=== PATIENT | male | born 1950 | race Caucasian/White ===

== ENCOUNTER 2021-12-31 10:30 | Outpatient (RCR) | payer OTHER, SELFPAY | END 2021-12-31 23:59 | LOC: PR 10:30 | DX: J44.9 Chronic obstructive pulmonary disease, unspecified (principal) | CPT/HCPCS: 97150; 94626 ==

== ENCOUNTER 2022-01-10 10:30 | Outpatient (RCR) | payer OTHER, SELFPAY ==
--- NOTE | 2022-01-31 08:41 | PR.ITP_ITS ---
Exercise - 60-Day Assessment - Visit Date of Eval: 01/31/22 Session Number:: 15 - pt has not attended rehab since 01/10/22 - Physician Prescribed Exercise Modalities: Biodyne, NuStep, Lateral Qa Intern Intensity: 60-80% maximum heart rate reserve from GXT Aerobic Exercise [30-60 min 3-7x/week]:: Progressing Raz-12 Current METSs: 3.5 Maximum Exercise HR:: 95 Resting Blood Pressure: 138/68 Maximum Exercise Blood Pressure: 138/68 - 94 Minimum SpO2 with exercise: 94 EKG Type: SR to ST Current Minutes of Exercise: 35 - Home Exercise Home Exercise:: Yes Mode: Other Nutrition/Wt Mgmt - 60-Day - Visit Date of Eval: 01/31/22 Session Number:: 15 - Weight Management Height: 5 ft 10 in Weight:: 126.325 kg BMI: 39.9 Weight Goals Progress:: Not progressing Psychosocial - 60-Day - Visit Date of Eval: 01/31/22 Session Number:: 15 - Problems/Goals History of Emotional Disorders: Anxious, Depression - - Referral to Behavioral Health PS - Interventions: Yes Referral to Behavioral Health if PHQ-9 score >9: Oxygen & Oxygen Titration 60D - Visit Date of Eval: 01/31/22 - 15 Core Components - Initial Core Components - 30 DAYS Core Components - 60 DAYS - Visit Date of Eval: 01/31/22 Session Number:: 15 - Hypertension Hypertension Diagnosis:: Hypertension ICD-10 I10 Resting Blood Pressure:: 138/68 [place] [employer] Hypertension Guidelines: [place] [employer] Hypertension Guidelines. Normal BP Less than 120/80. Elevated BP 120/80. Hypertension Stage 1: BP 130-139/80-89. Hypertesnion Stage 2: BP 140 or higher/90 or higher. Hypertension Crisis: BP higher than 180/120 Peak Exercise Blood Pressure:: 138/68 Interventions/plan: Instruct on optimal blood pressure, hypertension & medications, Instruct on effects of sodium, alcohol, stress, exercise &hypertension, Other additional plan/interventions 60 day Reassessments:: Progressing - Tobacco - 60-Day Tobacco Program Goals: Complete smoking cessation. Attend education classes. Improve Knowledge Test score Do you use smokeless tobacco?: No Smoking Cessation Referral:: No Individual Education/Counseling:: No Education Schedule Given:: Yes - Medication Medication reassessment: Yes Pt demonstrates correct technique timing for MDI, Yes Pt demonstrates correct technique timing for DPI, Yes Pt demonstrates correct technique timing for NEB, Yes Pt demonstrates correct technique timing for spacer - Diabetes Diabetes:: Yes Insulin dependent injection/pump?: Yes Non-Insulin Dependent?: Yes Do you monitor your blood sugar at home?: Yes Referral to Diabetic Clinic:: Yes 60-day Reassessments:: Progressing - Heart Failure Documenting weight sandra: Yes Core Components - 90 DAYS Core Components - Final Knowledge Questionaire (BCKQ) - Information Information: [employer] COPD Knowledge Questionnaire (BCKQ) This questionnaire is designed to find out what you know about your lung problem. It should be completed without help form anyone else. This usually takes between 10 and 20 minutes. Your answers will help us to find out what information you need to help you to understand and manage your lung condition. [employer] [place] which you think is the correct answer. Self-Efficacy Nutrition Survey
[2022-01-31 08:54] VITALS: BP 138/68; O2SAT 94; BMI 39.9
== END 2022-01-31 23:59 ==
LOC: PR 10:30
DX: R06.00 Dyspnea, unspecified (principal)
CPT/HCPCS: 97150; 94626

== ENCOUNTER 2022-02-02 09:09 | Outpatient (RCR) | payer OTHER, SELFPAY ==
[2022-02-01 00:14] VITALS: BP 138/68
== END 2022-03-02 23:59 ==
LOC: PR 09:09
DX: J44.9 Chronic obstructive pulmonary disease, unspecified (principal)
CPT/HCPCS: 97150; 94626

== ENCOUNTER 2022-07-14 16:00 | Emergency (ER) | payer OTHER, SELFPAY ==
[2022-07-14 16:01] VITALS: BP 119/62; PULSE 84; RESP 18; TEMP 36; O2SAT 94
--- NOTE | 2022-07-14 16:20 | VDLE_ITS ---
Reason For Study: Pain Procedure LEFT This is a venous duplex using B-mode, color GSV is normal. flow and spectral Doppler. CFV is compressible, spontaneous, phasic, Exam performed portable in ED. competent, and demonstrates normal A preliminary report was called and/or faxed augmentation. to ED. FV is compressible, spontaneous, phasic, competent and demonstrates normal augmentation. POP V is compressible, spontaneous, phasic, competent and demonstrates normal augmentation. T/P Trunk is compressible. PTV is compressible. LT PerV is compressible. VL/Venous Duplex US, Unilateral Interpretation Summary There is no evidence of left lower extremity deep vein thrombosis. Left great s aphenous vein appears patent and compressible segmentally. Ordering Physician: Calin Patel Referring Physician: [facility] Performed By: Yvonne Butler RVT
--- NOTE | 2022-07-14 16:38 | ED.VIS.LOWEX ---
HPI History of Present Illness Chief Complaint: Lower Extremity Injury Informant: patient Narrative Narrative: Patient was referred by [facility] for ultrasound for possible DVT of his left lower extremity. Patient states that about 4 days ago he was carrying some sheets of plywood into his garage. He got sudden pain in his left calf. All the pain is below the knee. He has not had swelling. If he is just sitting quietly it does not hurt but it hurts when he tries to put weight mostly on his toes. He still can move his toes down into equinus but it hurts when he does so. He has never had a DVT or PE. He does take aspirin. No chest pain or shortness of breath. No fevers or chills. [facility] Medical History Aortic valve stenosis Atherosclerotic heart disease of [place] coronary artery without angina pectoris Hyperlipidemia, unspecified Obesity (BMI 35.0-39.9 without comorbidity) VICKI on CPAP Type 2 diabetes mellitus without complications Home Medications albuterol sulfate 90 mcg/actuation aerosol inhaler 2 puff inhalation Q6H PRN Dyspnea 12/01/21 [History Last Taken Unknown] budesonide 160 mcg-glycopyr 9 mcg-formot 4.8 mcg/actuation HFA inhaler (Breztri Aerosphere) 2 inh inhalation BID 12/01/21 [History Last Taken Unknown] fluticasone propionate 50 mcg/actuation nasal spray,suspension 1 spray intranasal Q12H 12/01/21 [History Last Taken Unknown] loratadine 10 mg tablet 10 mg PO DAILY 12/01/21 [History Last Taken Unknown] Allergy/AdvReac Type Severity Reaction Status Date / Time Seasonal Allergies: Uncoded Allergy Mild Chronic Verified 07/14/22 16:01 Rhinitis/Sneezing, Coughing Social History Smoking Status: Former smoker ROS ROS ED Constitutional Constitutional ED: Denies chills or fever(s) ENT ENT ED: Denies rhinorrhea Cardiovascular Cardiovascular: Denies chest pain, palpitations or racing heartbeat Respiratory/Chest Respiratory/Chest: Denies cough or dyspnea Gastrointestinal Gastrointestinal: Denies nausea or vomiting Musculoskeletal Musculoskeletal: Reports myalgias and other Details: See history of present illness Integumentary Denies abscess, Abrasions or rash Neurologic Neurologic: Denies paresthesias or weakness Hematologic/Lymphatic Hematologic/Lymphatic: Denies easy bleeding or easy bruising Allergic/Immunologic Allergic/Immunologic ED: Denies urticaria EXAM Physical Exam Narrative Exam Narrative: Patient awake alert no acute distress sitting comfortably in bed. HEENT shows no rash. Mucous membranes are moist. Heart is regular. I hear no murmur. Lungs are clear bilaterally with normal saturations Abdomen is obese but otherwise benign Extremities do not show asymmetry. The right and left are the same size. There is no distended veins. He does have some tenderness of the left calf though. His Achilles is palpable and intact by Dickey test. He compressed down with his toes easily but it does cause some discomfort. No bony tenderness. No deformities. Extensor mechanism of the knee is intact and there is no effusion. There is no erythema warmth or skin changes of infection Skin shows no sign of infection. Const Vital Signs: 07/14/22 16:01 Temperature 96.8 F L Temperature Source Temporal Pulse Rate 84 Respiratory Rate 18 Blood Pressure 119/62 Blood Pressure Mean 81 Pulse Ox 94 Oxygen Delivery Method Room Air MDM MDM MDM Narrative Medical decision making narrative: We are trying to obtain reading the patient's ultrasound. It appears as though this has been read. But neither myself, charge nurse, or radiology can access the actual reading. We are making phone calls to the original radiologist and were trying to get the results and reading of this. We have been making calls for some time. We do have a verbal report that this image is negative. This is most consistent with this history. We will access evidently the formal read in the morning. There is an issue with the day shift and shift production supervisor transition and getting the study actually visualized. But they have been able to call and verify that it is negative. My suspicion is that this patient may have had a plantaris tendon rupture. Discharge Plan Triage Chief Complaint: Lower Extremity Injury ED Provider: Calin Patel Dx/Rx/DC Orders Clinical Impression: Pain of left calf, Injury of left plantaris muscle or tendon Instructions: ED Muscle Strain, Extremity Prescriptions: No Action albuterol sulfate 90 mcg/actuation Hfa Aerosol Inhaler 2 puff INHALATION Q6H PRN (Reason: Dyspnea) fluticasone propionate [Flonase] 50 mcg/actuation [place],Suspension 1 spray INTRANASAL Q12H Rx Instructions: administer into each nostril loratadine 10 mg Tablet 10 mg PO DAILY Ammyangus Aerosphere 160-9-4.8 mcg/actuation Hfa Aerosol Inhaler 2 inh INHALATION BID [facility] - 3-5 Days if not improving Disposition Disposition: Home, Self Care
[2022-07-14 17:00] VITALS: BMI 38.9
== END 2022-07-14 19:57 | disposition home or self-care (01) ==
PROVIDERS: Emergency Provider Emergency Medicine; Visit Provider Emergency Medicine
DX: M79.662 Pain in left lower leg (principal); E11.9 Type 2 diabetes mellitus without complications; I25.10 Atherosclerotic heart disease of native coronary artery without angina pectoris; E78.5 Hyperlipidemia, unspecified; Z87.891 Personal history of nicotine dependence; G47.33 Obstructive sleep apnea (adult) (pediatric); Z99.89 Dependence on other enabling machines and devices
CPT/HCPCS: 93971; 99282

== ENCOUNTER 2022-10-15 13:54 | Observation (INO) | payer OTHER, SELFPAY ==
[2022-10-15 13:56] VITALS: BP 138/65; PULSE 82; RESP 24; TEMP 36.3; O2SAT 95; BMI 38.3
--- NOTE | 2022-10-15 14:20 | RAD_ITS ---
EXAM: XR CHEST, 1 VIEW CLINICAL INDICATION: Chest pain. TECHNIQUE: Frontal view of the chest. COMPARISON: No relevant prior studies available. FINDINGS: LUNGS AND PLEURAL SPACES: Mild pulmonary hypoinflation. No pneumothorax. No effusion. No suspicious infiltrates. HEART: Unremarkable. No cardiomegaly. MEDIASTINUM: Central airways and mediastinal contour are unremarkable. BONES/JOINTS: Intact sternal wires. SOFT TISSUES: Unremarkable. RAD/Chest 1 View (Portable) IMPRESSION: No acute findings in the chest. Electronically Signed: Mandeep Gonzalez MD at 14:53 EDT ,
[2022-10-15 14:22] VITALS: O2SAT 96
--- NOTE | 2022-10-15 14:26 | EDS_ITS ---
HPI History of Present Illness Chief Complaint: Chest Pain Informant: patient Onset/Context/Timing Onset: Today and Hours Activity at onset: gradual Timing: Continuous Quality: Positive for Aching, Heaviness and Pressure Location: Left Parasternal Current Severity: Mild Maximum Severity: Moderate Worsened By: Nothing Relieved By: Nothing Associated Symptoms: Positive for Dyspnea and Lightheadedness; Negative for Nausea, Vomiting, Diaphoresis, Cough, Fever, Acid Reflux or Palpitations Narrative Narrative: 70-year-old male history of aortic stenosis with a mechanical aortic valve., Also history of diabetes. [facility]. He had his aortic valve placed he thinks 2 years ago. He has not had any recent cardiac catheterizations. He has been having some lightheadedness and left chest discomfort. Said it began around 11 AM today. Squad gave him aspirin and nitro which decreased his pain. This occurred when he was seated and not exerting himself. Prior Similar Symptoms: Yes Recent Illness/Hospitalization: No CVD Risk Factors: Positive for Hypertension and Diabetes; Negative for Smoking PE Risk Factors: Negative for Recent Travel/Surgery, Recent Immobilization, Prior DVT or PE, Cancer or OCP + Smoking + >/=35 TAD Risk Factors: Negative for Marfan's Syndrome [facility] Medical History Aortic valve stenosis Atherosclerotic heart disease of [place] coronary artery without angina pectoris Hyperlipidemia, unspecified Obesity (BMI 35.0-39.9 without comorbidity) VICKI on CPAP Type 2 diabetes mellitus without complications Home Medications albuterol sulfate 90 mcg/actuation aerosol inhaler 2 puff inhalation Q6H PRN Dyspnea 12/01/21 [History Last Taken Unknown] budesonide 160 mcg-glycopyr 9 mcg-formot 4.8 mcg/actuation HFA inhaler (Breztri Aerosphere) 2 inh inhalation BID 12/01/21 [History Last Taken Unknown] fluticasone propionate 50 mcg/actuation nasal spray,suspension 1 spray intranasal Q12H 12/01/21 [History Last Taken Unknown] loratadine 10 mg tablet 10 mg PO DAILY 12/01/21 [History Last Taken Unknown] Allergy/AdvReac Type Severity Reaction Status Date / Time No Known Allergies Allergy Verified 10/15/22 13:55 Surgical History History of arthroplasty of right knee Mechanical heart valve present Social History Smoking Status: Former smoker ROS ROS ED ROS Narrative Left-sided chest discomfort. Review of Systems ROS Unobtainable: Denies due to encephalopathy Constitutional Constitutional ED: Denies chills or fever(s) Eyes Eyes: Reports none ENT ENT ED: Denies ear pain Cardiovascular Cardiovascular: Reports as per HPI and chest pain; Denies palpitations or racing heartbeat Respiratory/Chest Respiratory/Chest: Reports dyspnea; Denies cough Gastrointestinal Gastrointestinal: Denies abdominal pain Genitourinary Genitourinary ED: Denies dysuria Musculoskeletal Musculoskeletal: Denies arthralgias Integumentary Denies abscess Neurologic Neurologic: Denies headache(s) Psychiatric Psychiatric: Denies anxiety Endocrine Endocrinology: Denies cold intolerance Hematologic/Lymphatic Hematologic/Lymphatic: Denies easy bleeding or easy bruising Allergic/Immunologic Allergic/Immunologic ED: Denies mouth swelling or tongue swelling EXAM Physical Exam Narrative Exam Narrative: 75-year-old male no acute distress. Vital signs stable afebrile. Pulse ox 95% on room air no hypoxia. H EENT exam unremarkable. Neck nontender no JVD. Lungs clear to auscultation bilaterally. Heart regular rate and rhythm. 4/6 systolic ejection murmur. Known aortic valve. Chest wall nontender. No ecchymosis or bruising. No redness or warmth. Abdomen soft nontender. Moving all 4 extremities. Calves are nontender without edema or cords. Equal symmetrical radial pulses. Normal umbrella tipper hand strength. He is awake and alert. Answering questions and following commands. Const Vital Signs: 10/15/22 13:56 10/15/22 13:59 10/15/22 14:22 Temperature 97.3 F L Temperature Source Temporal Pulse Rate 82 Respiratory Rate 24 H Respiratory Effort Short of Breath Blood Pressure 138/65 H Blood Pressure Mean 89 Pulse Ox 95 96 Oxygen Delivery Method Room Air Room Air 10/15/22 15:03 Temperature Temperature Source Pulse Rate 71 Respiratory Rate 19 H Respiratory Effort Blood Pressure 110/48 L Blood Pressure Mean 68 Pulse Ox 96 Oxygen Delivery Method Room Air Positive well nourished, well developed and obese; Negative for cachectic, contractures or unkempt General Appearance ED: well developed and NAD; Negative for unkempt, cachectic, contractures or pallor Nutritional Appearance: obese; Negative for cachectic HEENT Reports moist mucous membranes normocephalic and atraumatic; Negative for trauma or tenderness Eyes PERRL and EOMs intact bilaterally General Eye ED: Negative for pale conjunctiva or scleral icterus Neck no lymphadenopathy, supple and no JVD General: Negative for tenderness Chest Wall inspection of chest normal and palpation of chest normal Resp normal respiratory effort and clear to auscultation bilaterally Effort and Inspection: Negative for respiratory distress Auscultation: Negative for rales, rhonchi or wheezes Cardio regular rate, regular rhythm, S1 normal heart sound and S2 normal heart sound; Negative for no murmurs Rate: other Other Details: 4/6 systolic ejection murmur. Peripheral Pulses: pulses 2+ throughout GI normal to inspection, nondistended, normoactive bowel sounds, soft to palpation, non-tender, non-distended and no masses Auscultation: Negative for hyperactive bowel sounds Palpation: Negative for splenomegaly Back/Spine no CVA tenderness and no thoracic nor lumbar tenderness General Back: Negative for CVA tenderness Cervical Spine: Negative for cervical spine tenderness Extremity normal to inspection General Extremety ED: Negative for edema, pulses abnormal or tenderness General Extremity: Negative for edema or pulses abnormal Neuro oriented x3 and CN's II-XII intact bilaterally Sensorium / Orientation: awake, alert, oriented to person, oriented to place and oriented to time; Negative for confused, lethargic or stuporous Motor Exam: strength 5/5 throughout Psych mental status grossly normal Appearance: Negative for unkempt Attitude: No agitated Mood & Affect: Negative for depressed, anxious or tearful Skin no rashes or lesions noted and no wounds General Skin Exam: Negative for jaundice or pallor Rashes: No rashes noted Trauma: Negative for abrasion, laceration or puncture Heart Score History: Moderately Suspicious ECG: Normal Age: >/= 65 years Risk Factors: 1 or 2 Risk Factors Troponin: </= Normal Limit Score: 4 MDM MDM MDM Narrative Medical decision making narrative: 72-year-old male with a known aortic mechanical valve. He is not sure if he is on blood thinners or not. He does take an aspirin a day. Had nonexertional left-sided chest pain today is not reproducible. Undergo cardiac work-up. Most likely will need to be admitted for further testing. Repeat exam patient is doing well at 3:35 PM. I will speak to the hospitalist about admission for chest pain of uncertain etiology. Patient is comfortable with the plan. History & Record Review Discussion w/independent historian: Patient Additional record(s) reviewed:: Prior inpatient record, Prior outpatient record, Prior ED visit and Prior labs Lab Data Attestation: I reviewed the patient's lab results. Lab results narrative: CBC shows a white count 11.0. H&H 13.8 and 43. Platelets 167. Electrolytes show a gap of 4. Normal BUN of 17 and creatinine of 1. Glucose 140. Troponin is normal at 7. Chest x-ray shows chronic changes. Prior sternotomy. Labs: Laboratory Results - last 24 hr 10/15/22 13:45 WBC 11.0 RBC 4.79 Hgb 13.8 Hct 43.2 MCV 90.2 MCH 28.8 MCHC 31.9 L RDW Std Deviation 43.5 RDW Coeff of Asad 13.2 Plt Count 167 MPV 11.2 Immature Gran % (Auto) 0.500 Neut % (Auto) 65.6 Lymph % (Auto) 20.7 [place] % (Auto) 9.0 Eos % (Auto) 3.5 Baso % (Auto) 0.7 Absolute Neuts (auto) 7.2 Absolute Lymphs (auto) 2.28 Nucleated RBC % 0 Sodium 141 Potassium 4.2 Chloride 107 Carbon Dioxide 30.0 Anion Gap 4 L BUN 17 Creatinine 1.02 Estim Creat Clear Calc 69.72 Est GFR (MDRD) Af Amer 92 Est GFR (MDRD) Non-Af 76 BUN/Creatinine Ratio 16.7 Glucose 140 H Calcium 9.1 Troponin I High Sens 7 Radiography Chest X-Ray - ED: 1 View, Read by ED Physician, Read by Radiologist, Heart, Lungs, Mediastinum, Bony Structures, No Acute Disease and Chronic Changes Diagnostic Testing: Clinical Impression(s) from Imaging Studies Chest X-Ray 10/15/22 14:20 IMPRESSION: No acute findings in the chest. Electronically Signed: Mandeep Gonzalez MD at 14:53 EDT , Chest x-ray, portable, single view shows no acute abnormality. Prior sternotomy. Chronic changes. Interpreted by myself and the radiologist and we agree. Rhythm Strip Rhythm Strip: Sinus Rhythm Rate: 86 Ectopy: PAC(s) EKG Initial EKG: Attestation: I personally reviewed and interpreted this EKG as follows: Interpretation: Sinus Rhythm and No Acute Injury Pattern Comments: Sinus rhythm with PACs. No acute signs of AK or ischemia. Discharge Plan Triage Chief Complaint: Chest Pain ED Provider: Jann Jiang Dx/Rx/DC Orders Clinical Impression: History of prosthetic aortic valve, History of aortic valve stenosis, Chest pain Prescriptions: No Action albuterol sulfate 90 mcg/actuation Hfa Aerosol Inhaler 2 puff INHALATION Q6H PRN (Reason: Dyspnea) fluticasone propionate [Flonase] 50 mcg/actuation [place],Suspension 1 spray INTRANASAL Q12H Rx Instructions: administer into each nostril loratadine 10 mg Tablet 10 mg PO DAILY Breztri Aerosphere 160-9-4.8 mcg/actuation Hfa Aerosol Inhaler 2 inh INHALATION BID [facility]: [facility] [Primary Care Provider] - Disposition Disposition: Acute Care Hospital [facility]
[2022-10-15 14:29] LABS: Absolute Lymphocyte Count 2.28 X10^3/uL (0.83-4.51); Absolute Neutrophil Count 7.2 X10^3/uL (2.0-7.7); Basophil# 0.08 X10^3/uL; Basophil% 0.7 % (0-1); Eosinophil# 0.39 X10^3/uL; Eosinophils% 3.5 % (0-5); Hematocrit 43.2 % (40-54); Hemoglobin 13.8 g/dL (13.0-16.5); Lymphocyte # 2.28 X10^3/ul (0.83-4.51); Lymphocyte % 20.7 % (19-41); Mean Corp Hgb Conc 31.9 g/dL (32-36); Mean Corpuscular Hgb 28.8 pg (27.0-32.0); Mean Corpuscular Volume 90.2 fL (80-94); Mean Platelet Vol. 11.2 fl (6.2-12.0); Monocyte# 0.99 X10^3/uL; NRBC Flagged by Analyzer 0 % (0-5); Neutrophil # 7.23 X10^3/uL (2.7-7.7); Neutrophil % 65.6 % (47-70); Platelet Count 167 K/mm3 (150-450); RBC Distribution Width CV 13.2 % (11.6-14.6); RBC Distribution Width SD 43.5 fl (35.1-43.9); Red Blood Count 4.79 M/mm3 (4.6-6.2)
[2022-10-15 14:46] LABS: Anion Gap 4 (5-15); BUN 17 mg/dL (7-18); BUN/Creat Ratio 16.7 RATIO (10-20); Calcium,Total 9.1 mg/dL (8.5-10.1); Chloride 107 mmol/L (98-107); Creatinine, Serum 1.02 mg/dL (0.70-1.30); EST Glomerular Filtration Rate 76 mL/min (>60); Est Glom Filt Rate - Afr Amer 92 mL/min (>60); Estimated Creatinine Clearance 69.72 ml/min; Glucose 140 mg/dL (74-106); Potassium 4.2 mmol/L (3.5-5.1); Sodium Level 141 mmol/L (136-145); Troponin-I HS (w/2H Reflex) 7 pg/mL (3.0-78.0)
[2022-10-15 15:03] VITALS: BP 110/48; PULSE 71; RESP 19; O2SAT 96
[2022-10-15 16:03] VITALS: BP 138/64; PULSE 74; RESP 18; RESP 23; TEMP 36.8; O2SAT 96
--- NOTE | 2022-10-15 16:10 | HP.PCM.HOS_ITS ---
[facility] - General General Date of Admission: 10/15/22 Date of Service: 10/15/22 Chief Complaint: chest pain and dizziness. HPI Narrative MANJU SANCHEZ, is a 72 M who presents with chest pressure and dizziness. Chest pressure is left-sided and patient is having persistent dizziness. Began around 11 today. Patient was at the ED with his great-grandchildren when this occurred. Presented to the emergency room and underwent a work-up including EKG and troponins which are thus far negative. Patient has never had anything like this before. Patient does have a history of paroxysmal atrial fibrillation as well as a mechanical aortic valve. Patient had been on warfarin for his mechanical aortic valve for about 6 months and then that was discontinued. He stated that he had easy bleeding when he would cut himself but no history of any intracranial hemorrhage or GI bleeding. [facility] Medical History (Updated 10/15/22 @ 16:[address] Abrahan Mejia DO) Aortic valve stenosis Atherosclerotic heart disease of [place] coronary artery without angina pectoris COPD exacerbation Hyperlipidemia, unspecified Obesity (BMI 35.0-39.9 without comorbidity) VICKI on CPAP Type 2 diabetes mellitus without complications Home Medications albuterol sulfate 90 mcg/actuation aerosol inhaler 2 puff inhalation Q6H PRN Dyspnea 12/01/21 [History Last Taken Unknown] budesonide 160 mcg-glycopyr 9 mcg-formot 4.8 mcg/actuation HFA inhaler (Breztri Aerosphere) 2 inh inhalation BID 12/01/21 [History Last Taken Unknown] fluticasone propionate 50 mcg/actuation nasal spray,suspension 1 spray intranasal Q12H 12/01/21 [History Last Taken Unknown] loratadine 10 mg tablet 10 mg PO DAILY 12/01/21 [History Last Taken Unknown] Allergy/AdvReac Type Severity Reaction Status Date / Time No Known Allergies Allergy Verified 10/15/22 13:55 Surgical History (Updated 10/15/22 @ 16:[address] Abrahan Mejia DO) H/O mechanical aortic valve replacement History of arthroplasty of right knee Mechanical heart valve present Social History Smoking Status: Former smoker ROS ROS Narrative Dizziness is persistent and not worsened by changing position. No nausea or vomiting. No diaphoresis. No lower extremity edema. Patient has lost around 8 pounds recently. All review of systems were negative except as mentioned above in the history of present illness and the other review of systems. Vital Signs Vital Signs Vital Signs: 10/15/22 13:56 10/15/22 13:59 10/15/22 14:22 Temperature 36.3 C L Temperature Source Temporal Pulse Rate 82 Respiratory Rate 24 H Respiratory Effort Short of Breath Blood Pressure 138/65 H Blood Pressure Mean 89 Pulse Ox 95 96 Oxygen Delivery Method Room Air Room Air 10/15/22 15:03 10/15/22 16:03 10/15/22 16:03 Temperature 36.8 C Temperature Source Oral Pulse Rate 71 74 74 Respiratory Rate 19 H 23 H 18 Respiratory Effort Blood Pressure 110/48 L 138/64 H 138/64 H Blood Pressure Mean 68 88 88 Pulse Ox 96 96 96 Oxygen Delivery Method Room Air Room Air Room Air Weight Weight: 124.7 kg Body Mass Index (BMI) 38.3 Physical Exam Const alert and no apparent distress HEENT normocephalic and head/scalp atraumatic Eyes PERRL Eyes Narrative: Bilateral nystagmus but more prominent on the left. Nystagmus in both right and left gaze did fatigue. And with gaze to his left, he did feel more dizzy. Neck no lymphadenopathy Resp normal respiratory effort, no retractions, no use of accessory muscles and clear to auscultation bilaterally Cardio regular rate, regular rhythm, S1 normal heart sound and S2 normal heart sound Cardio Narrative: Aortic murmur. PVCs on telemetry GI normal to inspection, nondistended, normoactive bowel sounds, soft to palpation, non-tender and non-distended Extremity normal to inspection and no clubbing, cyanosis or edema Neuro oriented x3 and CN's II-XII intact bilaterally Neuro Narrative: Patient had difficulty lifting his legs due to pain but with plantar and dors iflexion, pain muscle strength is 5 out of 5. Sensation grossly intact and throughout face, upper extremities and lower extremities. Sensorium / Orientation: awake and alert Psych affect normal Results Lab / Micro Data Attestation: I reviewed the patient's lab results. 10/15/22 13:45 10/15/22 13:45 Labs: Laboratory Results - last 24 hr 10/15/22 13:45: WBC 11.0, RBC 4.79, Hgb 13.8, Hct 43.2, MCV 90.2, MCH 28.8, MCHC 31.9 L, RDW Std Deviation 43.5, RDW Coeff of Asad 13.2, Plt Count 167, MPV 11.2, Immature Gran % (Auto) 0.500, Neut % (Auto) 65.6, Lymph % (Auto) 20.7, [place] % (Auto) 9.0, Eos % (Auto) 3.5, Baso % (Auto) 0.7, Absolute Neuts (auto) 7.2, Absolute Lymphs (auto) 2.28, Nucleated RBC % 0, Sodium 141, Potassium 4.2, Ch loride 107, Carbon Dioxide 30.0, Anion Gap 4 L, BUN 17, Creatinine 1.02, Estim Creat Clear Calc 69.72, Est GFR (MDRD) Af Amer 92, Est GFR (MDRD) Non-Af 76, BUN/Creatinine Ratio 16.7, Glucose 140 H, Calcium 9.1, Troponin I High Sens 7 Rhythm Strip Rhythm Strip: Sinus Rhythm Rate: 86 Ectopy: PAC(s) EKG Initial EKG: Attestation: I personally reviewed and interpreted this EKG as follows: Prior EKG tracings: available for review EKG Rhythm Intrepretation: Sinus Rhythm Radiology Impression Chest X-Ray 10/15/22 14:20 IMPRESSION: No acute findings in the chest. Electronically Signed: Mandeep Gonzalez MD at 14:53 EDT , Assessment & Plan Assessment/Plan (1) Chest pain: PLAN: Atypical No evidence of myocardial infarction at this time Continue to cycle troponins Administer aspirin and continue with aspirin daily Plan for a nuclear stress test on the . Patient and his daughter are aware that we will not be able to be performed until then. If evidence of myocardial infarction, may need to consider consulting cardiology discontinuing the stress test. (2) Vertigo: PLAN: Suspect BPPV As needed meclizine Physical therapy for vestibular therapy. (3) H/O mechanical aortic valve replacement: PLAN: Per the patient's history, he stated that he had been on warfarin for about 6 months after the valve replacement and then that was discontinued. He does not know why it was discontinued but he stated that other than bleeding when he would cut himself, he had no other life-threatening or dangerous bleeding. We will request records from the [place] to see if patient does indeed have m echanical aortic valve I told him that if he does have mechanical heart valve that he is at risk for thrombus and recommended anticoagulation with enoxaparin for now. He is agreeable. PLAN: Plan Chronic conditions * Diabetes mellitus type 2: Insulin-dependent. Patient does take insulin twice daily. We will wait on the final report and administer that medication. In the interim sliding scale insulin. * COPD versus asthma: Chronic. Patient states he has been told that he has 1 or both of these. Which ever he has, he is not on exacerbation at this time. Supportive management. * Paroxysmal atrial fibrillation: [id number] score of 3. Patient is agreeable to anticoagulation for now. If patient does have mechanical aortic valve then the recommendation would be for warfarin. VTE prophylaxis: Not indicated as patient is currently anticoagulated. CODE STATUS: Addressed with the patient. Patient wishes to be full code. Disposition: Patient will be here through the waiting on stress test. Unfortunate this time there is no medical necessity to warrant admission at this point in time. If there is a change in his status, then that can be changed at a later point. Patient is currently under observation status. Charges/Coding Visit Charges Inpatient E&M: 90298 Init Hosp L3
[2022-10-15 16:24] LABS: Reflex Troponin-HS? (from REC) Y
[2022-10-15 16:36] VITALS: BMI 37.1
[2022-10-15 16:49] VITALS: BP 150/68; PULSE 74; RESP 16; TEMP 36.9; O2SAT 97
[2022-10-15 16:58] LABS: Troponin-I HS 10 pg/mL (3.0-78.0)
[2022-10-15] MEDS: Fluticasone 0.05% 1 SPRAY NASAL.SRY NASAL (18:23)
[2022-10-15] MEDS: Enoxaparin 120 MG/0.8 ML Syringe SC (18:24)
[2022-10-15 18:31] LABS: Bedside Glucose 101 mg/dL (74-106)
--- NOTE | 2022-10-15 19:06 | EKG12_ITS ---
Test Reason : AFIB Blood Pressure : / mmHG Vent. Rate : 108 BPM Atrial Rate : 073 BPM P-R Int : 000 ms QRS Dur : 100 ms QT Int : 340 ms P-R-T Axes : 000 005 032 degrees QTc Int : 455 ms Atrial fibrillation with premature ventricular or aberrantly conducted complexes Inferior infarct , age undetermined Abnormal ECG When compared with ECG of 17-OCT-2022 04:44, MANUAL COMPARISON REQUIRED, DATA IS UNCONFIRMED Confirmed by EDDA YBARRA, TANVIR ([id number]), editor city NGHIA ACEVEDO ([id number]) on 10/25/2022 7:13:20 AM Referred By: SARAH Confirmed By:TANVIR BAÑUELOS MD
[2022-10-15] MEDS: Acetaminophen 325 MG Tablet 650 MG PO (19:52)
[2022-10-15] MEDS: Meclizine 12.5 MG Tablet PO (19:53)
[2022-10-15 20:35] LABS: Troponin-I HS 9 pg/mL (3.0-78.0)
[2022-10-15] MEDS: Insulin Glargine-YFGN 100 UNIT/ML Pen 30 UNIT SC (21:26)
[2022-10-15 21:45] LABS: Bedside Glucose 151 mg/dL (74-106)
[2022-10-15] MEDS: MELATONIN 10 MG TABLET PO (22:22)
[2022-10-15 22:30] VITALS: BP 156/70; PULSE 76; RESP 18; TEMP 36.6; O2SAT 95
[2022-10-16] VITALS (8 sets, daily range): BP systolic 111–153; BP diastolic 49–66; PULSE 73–93; RESP 16–20; TEMP 36.1–37.2; O2SAT 92–96
[2022-10-16] MEDS: Enoxaparin 120 MG/0.8 ML Syringe SC ×2 (06:34→17:04)
[2022-10-16 06:40] LABS: Cholesterol 117 mg/dL (200); High Density Lipoprotein 33 mg/dL; Triglycerides 177 mg/dL; Very Low Density Lipoprotein 35 mg/dL (5-40)
[2022-10-16 06:59] LABS: Bedside Glucose 93 mg/dL (74-106)
[2022-10-16] MEDS: Budesonide Respules 0.5 MG/2 ML AMPUL.NEB. INHALATION ×2 (07:11→19:54)
[2022-10-16] MEDS: Ipratropium/Albuterol Sulfate 3 ML AMPUL.NEB INHALATION ×3 (07:11→19:54)
--- NOTE | 2022-10-16 08:10 | PCM.PN.HOSP ---
Reason for Visit Reason for Visit: Diagnoses Chest pain, unspecified (10/15/22) Dizziness and giddiness (10/15/22) Presence of prosthetic heart valve (10/15/22) Subjective Subjective Dizziness resolved. Still with chest pain, but much improved. Objective Data Objective Data Vital Signs: Vital Signs Temp Pulse Resp BP Pulse Ox O2 Del Method 36.1 C L 73 18 153/65 H 96 Room Air 10/16/22 03:15 10/16/22 03:15 10/16/22 03:15 10/16/22 03:15 10/16/22 03:10/16/22 03:15 Oxygen Delivery Method Room Air Weight: 120.8 kg Body Mass Index (BMI) 37.1 Intake & Output: Intake and Output for Last 24 Hours 10/14/22 10/15/22 10/16/22 23:59 23:59 23:59 Intake Total 240 / 240 Balance 240 / 240 Lab / Micro Data 10/15/22 13:45 10/15/22 13:45 Labs: Laboratory Results - last 24 hr 10/15/22 13:45: WBC 11.0, RBC 4.79, Hgb 13.8, Hct 43.2, MCV 90.2, MCH 28.8, MCHC 31.9 L, RDW Std Deviation 43.5, RDW Coeff of Asad 13.2, Plt Count 167, MPV 11.2, Immature Gran % (Auto) 0.500, Neut % (Auto) 65.6, Lymph % (Auto) 20.7, [place] % (Auto) 9.0, Eos % (Auto) 3.5, Baso % (Auto) 0.7, Absolute Neuts (auto) 7.2, Absolute Lymphs (auto) 2.28, Nucleated RBC % 0, Sodium 141, Potassium 4.2, Chloride 107, Carbon Dioxide 30.0, Anion Gap 4 L, BUN 17, Creatinine 1.02, Estim Creat Clear Calc 69.72, Est GFR (MDRD) Af Amer 92, Est GFR (MDRD) Non-Af 76, BUN/Creatinine Ratio 16.7, Glucose 140 H, Calcium 9.1, Troponin I High Sens 7 10/15/22 15:45: Troponin I High Sens 10 10/15/22 17:40: POC Glucose 101 10/15/22 19:55: Troponin I High Sens 9 10/15/22 21:24: POC Glucose 151 H 10/16/22 05:43: Triglycerides 177, Cholesterol 117, LDL Cholesterol 49, VLDL Cholesterol 35, HDL Cholesterol 33 L 10/16/22 06:34: POC Glucose 93 Radiography Diagnostic Testing: Radiology Impression Chest X-Ray 10/15/22 14:20 IMPRESSION: No acute findings in the chest. Electronically Signed: Mandeep Gonzalez MD at 14:53 EDT , Rhythm Strip Rhythm Strip: Sinus Rhythm Rate: 86 Ectopy: PAC(s) Physical Exam Const alert and no apparent distress HEENT head/scalp atraumatic and moist oral mucous membranes Eyes EOMs intact bilaterally Eyes Narrative: bilateral nystagmus, but improved from 10/15. No reproducible dizziness with lateral gaze. Resp normal respiratory effort, no retractions and no use of accessory muscles Cardio regular rate, regular rhythm, S1 normal heart sound and S2 normal heart sound GI normal to inspection, nondistended, normoactive bowel sounds, soft to palpation and non-tender Assessment & Plan Assessment/Plan (1) Chest pain: QUALIFIERS: Chest pain type: unspecified Qualified Code(s): R07.9 - Chest pain, unspecified PLAN: Atypical No evidence of myocardial infarction at this time Continue to cycle troponins Administer aspirin and continue with aspirin daily Plan for a nuclear stress test on the . Patient and his daughter are aware that we will not be able to be performed until then. If evidence of myocardial infarction, may need to consider consulting cardiology discontinuing the stress test. (2) Vertigo: PLAN: Resolved Suspect BPPV As needed meclizine Physical therapy for vestibular therapy. (3) H/O mechanical aortic valve replacement: PLAN: Per the patient's history, he stated that he had been on warfarin for about 6 months after the valve replacement and then that was discontinued. He does not know why it was discontinued but he stated that other than bleeding when he would cut himself, he had no other life-threatening or dangerous bleeding. We will request records from the [place] to see if patient does indeed have mechanical aortic valve. (I reviewed [facility], [place] [facility] [place] [facility]) I told him that if he does have mechanical heart valve that he is at risk for thrombus and recommended anticoagulation with enoxaparin for now. He is agreeable. PLAN: Plan Chronic conditions Diabetes mellitus type 2: Insulin-dependent. Patient does take insulin twice daily. We will wait on the final report and administer that medication. In the interim sliding scale insulin. COPD versus asthma: Chronic. Patient states he has been told that he has 1 or both of these. Which ever he has, he is not on exacerbation at this time. Supportive management. Paroxysmal atrial fibrillation: [id number] score of 3. Patient is agreeable to anticoagulation for now. If patient does have mechanical aortic valve then the recommendation would be for warfarin. VTE prophylaxis: Not indicated as patient is currently anticoagulated. CODE STATUS: Addressed with the patient. Patient wishes to be full code. Disposition: Patient will be here through the waiting on stress test. Unfortunate this time there is no medical necessity to warrant admission at this point in time. If there is a change in his status, then that can be changed at a later point. Patient is currently under observation status. Charges/Coding Visit Charges Inpatient E&M: 17097 Subs Hosp L2
[2022-10-16] MEDS: Aspirin E.C. 81 MG Tablet PO (09:27)
[2022-10-16] MEDS: Loratadine 10 MG Tablet PO (09:27)
[2022-10-16] MEDS: Fluticasone 0.05% 1 SPRAY NASAL.SRY NASAL (09:27)
[2022-10-16] MEDS: Insulin Glargine-YFGN 100 UNIT/ML Pen 30 UNIT SC (11:21)
[2022-10-16] MEDS: Insulin Lispro 100 UNIT/ML INSULN.PEN SC (11:24)
[2022-10-16 11:39] LABS: Bedside Glucose 187 mg/dL (74-106)
[2022-10-16 17:24] LABS: Bedside Glucose 127 mg/dL (74-106)
[2022-10-16] MEDS: MELATONIN 10 MG TABLET PO (20:29)
[2022-10-16 20:36] LABS: Magnesium 2.1 mg/dL (1.6-2.6)
[2022-10-16 22:27] LABS: Bedside Glucose 160 mg/dL (74-106)
[2022-10-17 03:30] VITALS: BP 155/80; PULSE 76; RESP 18; TEMP 37; O2SAT 96
--- NOTE | 2022-10-17 05:00 | EKG12_ITS ---
Test Reason : AM EKG Blood Pressure : / mmHG Vent. Rate : 079 BPM Atrial Rate : 079 BPM P-R Int : 182 ms QRS Dur : 108 ms QT Int : 390 ms P-R-T Axes : 032 -02 049 degrees QTc Int : 447 ms Sinus rhythm with frequent Premature ventricular complexes Otherwise normal ECG When compared with ECG of 15-OCT-2022 19:53, MANUAL COMPARISON REQUIRED, DATA IS UNCONFIRMED Confirmed by EDDA YBARRA, TANVIR ([id number]), social media editor NGHIA ACEVEDO ([id number]) on 10/25/2022 7:14:28 AM Referred By: SARAH Confirmed By:TANVIR BAÑUELOS MD
[2022-10-17 06:28] LABS: Absolute Lymphocyte Count 1.67 X10^3/uL (0.83-4.51); Absolute Neutrophil Count 6.8 X10^3/uL (2.0-7.7); Basophil# 0.05 X10^3/uL; Basophil% 0.5 % (0-1); Eosinophil# 0.26 X10^3/uL; Eosinophils% 2.7 % (0-5); Hematocrit 40.3 % (40-54); Hemoglobin 13.8 g/dL (13.0-16.5); Lymphocyte # 1.67 X10^3/ul (0.83-4.51); Lymphocyte % 17.2 % (19-41); Mean Corp Hgb Conc 34.2 g/dL (32-36); Mean Corpuscular Hgb 29.9 pg (27.0-32.0); Mean Corpuscular Volume 87.2 fL (80-94); Mean Platelet Vol. 10.7 fl (6.2-12.0); Monocyte# 0.93 X10^3/uL; Monocyte% 9.6 % (0-10); NRBC Flagged by Analyzer 0 % (0-5); Neutrophil # 6.75 X10^3/uL (2.7-7.7); Neutrophil % 69.6 % (47-70); Platelet Count 161 K/mm3 (150-450); RBC Distribution Width CV 13.1 % (11.6-14.6); RBC Distribution Width SD 41.3 fl (35.1-43.9); Red Blood Count 4.62 M/mm3 (4.6-6.2); White Blood Count 9.7 K/mm3 (4.4-11.0)
[2022-10-17] MEDS: Aspirin E.C. 81 MG Tablet PO (06:50)
[2022-10-17] MEDS: Budesonide Respules 0.5 MG/2 ML AMPUL.NEB. INHALATION (07:06)
[2022-10-17] MEDS: Ipratropium/Albuterol Sulfate 3 ML AMPUL.NEB INHALATION ×2 (07:06→12:32)
[2022-10-17 07:07] VITALS: PULSE 80; RESP 18; O2SAT 92
[2022-10-17 07:10] LABS: Bedside Glucose 123 mg/dL (74-106)
[2022-10-17 07:12] LABS: AST(SGOT) 24 U/L (15-37); Alanine Aminotransfer ALT/SGPT 35 U/L (16-61); Albumin, Serum 3.4 g/dL (3.2-5.0); Alkaline Phosphatase 50 U/L (45-117); Anion Gap 6 (5-15); BUN 15 mg/dL (7-18); BUN/Creat Ratio 19.6 RATIO (10-20); Calcium,Total 9.1 mg/dL (8.5-10.1); Chloride 107 mmol/L (98-107); Creatinine, Serum 0.76 mg/dL (0.70-1.30); EST Glomerular Filtration Rate 106 mL/min (>60); Est Glom Filt Rate - Afr Amer 129 mL/min (>60); Estimated Creatinine Clearance 71.12 ml/min; Globulin 3.4 g/dL (2.2-4.2); Glucose 134 mg/dL (74-106); Protein, Total 6.8 g/dL (6.4-8.2); Sodium Level 138 mmol/L (136-145)
--- NOTE | 2022-10-17 07:47 | PN.HOSP_ITS ---
Reason for Visit Reason for Visit: Diagnoses Chest pain, unspecified (10/15/22) Dizziness and giddiness (10/15/22) Presence of prosthetic heart valve (10/15/22) Subjective Subjective No further chest pain. No dizziness. Objective Data Objective Data Vital Signs: Vital Signs Temp Pulse Resp BP Pulse Ox O2 Del Method 37.0 C 80 18 155/80 H 92 Room Air 10/17/22 03:30 10/17/22 07:07 10/17/22 07:07 10/17/22 03:30 10/17/22 07:07 10/17/22 07:07 Oxygen Delivery Method Room Air Weight: 120.8 kg Body Mass Index (BMI) 37.1 Intake & Output: Intake and Output for Last 24 Hours 10/15/22 10/16/22 10/17/22 23:59 23:59 23:59 Intake Total 240 / 240 500 / 500 Balance 240 / 240 500 / 500 Lab / Micro Data 10/17/22 06:05 10/17/22 06:05 Labs: Laboratory Results - last 24 hr 10/16/22 05:43: Magnesium 2.1 10/16/22 11:19: POC Glucose 187 H 10/16/22 17:02: POC Glucose 127 H 10/16/22 20:27: POC Glucose 160 H 10/17/22 06:05: WBC 9.7, RBC 4.62, Hgb 13.8, Hct 40.3, MCV 87.2, MCH 29.9, MCHC 34.2 D, RDW Std Deviation 41.3, RDW Coeff of Asad 13.1, Plt Count 161, MPV 10.7, Immature Gran % (Auto) 0.400, Neut % (Auto) 69.6, Lymph % (Auto) 17.2 L, [place] % (Auto) 9.6, Eos % (Auto) 2.7, Baso % (Auto) 0.5, Absolute Neuts (auto) 6.8, Absolute Lymphs (auto) 1.67, Nucleated RBC % 0, Sodium 138, Potassium 4.0, Chloride 107, Carbon Dioxide 25.0, Anion Gap 6, BUN 15, Creatinine 0.76, Estim Creat Clear Calc 71.12, Est GFR (MDRD) Af Amer 129, Est GFR (MDRD) Non-Af 106, BUN/Creatinine Ratio 19.6, Glucose 134 H, Calcium 9.1, Total Bilirubin 0.50, AST 24, ALT 35, Alkaline Phosphatase 50, Total Protein 6.8, Albumin 3.4, Globulin 3.4, Albumin/Globulin Ratio 1.0 10/17/22 06:48: POC Glucose 123 H Rhythm Strip Rhythm Strip: Sinus Rhythm Rate: 86 Ectopy: PAC(s) Physical Exam Const alert and no apparent distress HEENT head/scalp atraumatic and moist oral mucous membranes Resp normal respiratory effort, no retractions, no use of accessory muscles and clear to auscultation bilaterally Cardio regular rate, regular rhythm, S1 normal heart sound and S2 normal heart sound GI normal to inspection, nondistended, normoactive bowel sounds, soft to palpation, non-tender and non-distended Extremity normal to inspection Assessment & Plan Assessment/Plan (1) Chest pain: QUALIFIERS: Chest pain type: unspecified Qualified Code(s): R07.9 - Chest pain, unspecified PLAN: Atypical No evidence of myocardial infarction at this time Continue to cycle troponins Administer aspirin and continue with aspirin daily Plan for a nuclear stress test on the . Patient and his daughter are aware that we will not be able to be performed until then. If evidence of myocardial infarction, may need to consider consulting cardiology discontinuing the stress test. (2) Vertigo: PLAN: Resolved Suspect BPPV As needed meclizine Physical therapy for vestibular therapy. (3) H/O mechanical aortic valve replacement: PLAN: Per the patient's history, he stated that he had been on warfarin for about 6 months after the valve replacement and then that was discontinued. He does not know why it was discontinued but he stated that other than bleeding w hen he would cut himself, he had no other life-threatening or dangerous bleeding. We will request records from the [place] to see if patient does indeed have mechanical aortic valve. (I reviewed [facility], [place] records are unavailable through it) I told him that if he does have mechanical heart valve that he is at risk for thrombus and recommended anticoagulation with enoxaparin for now. He is agreeable. PLAN: Plan Chronic conditions * Diabetes mellitus type 2: Insulin-dependent. Patient does take insulin twice daily. We will wait on the final report and administer that medication. In the interim sliding scale insulin. * COPD versus asthma: Chronic. Patient states he has been told that he has 1 or both of these. Which ever he has, he is not on exacerbation at this time. Supportive management. * Paroxysmal atrial fibrillation: [id number] score of 3. Patient is agreeable to anticoagulation for now. If patient does have mechanical aortic valve then the recommendation would be for warfarin. VTE prophylaxis: Not indicated as patient is currently anticoagulated. CODE STATUS: Addressed with the patient. Patient wishes to be full code. Disposition: Patient will be here through the waiting on stress test. Unfortunate this time there is no medical necessity to warrant admission at this point in time. If there is a change in his status, then that can be changed at a later point. Patient is currently under observation status. Charges/Coding Visit Charges Inpatient E&M: 32788 Subs Hosp L2
--- NOTE | 2022-10-17 10:10 | CASEMGMT ---
RN EDWINA NOTE: Intro role of CM to patient and MIRELES form explained re: Observation status for treatment of chest pain.? Explained hospitalization will be paid per?his insurance policy for Outpatient billing?and condition will continue to be evaluated for Inpt necessity. Also let pt know that [facility] sends paper in the billing packet with their phone number if questions arise. Discussed Pharmacy section of MIRELES form and self administered medication guideline.? Pt verbalizes understanding and does not have further questions. ?Form signed, copy made and placed in chart, and original given to pt. Susannah PACHECON RN CM
--- NOTE | 2022-10-17 10:16 | STRESSREP_ITS ---
Stress Test Report Date: 10/17/2022 Procedure: Pharmacologic stress nuclear imaging study Indications: Chest pain Consent: Per the patient Procedure: The patient underwent pharmacologic (Regadenoson 0.4mg ) evaluation with a peak heart rate of 112 beats per minute (75%predicted maximal heart rate) and a peak blood pressure of 140/82 mmHg. The baseline ECG demonstrated normal sinus rhythm. The peak pharmacologic ECG demonstrated no ischemic changes. Rare PVCs noted. There was no complaint of chest discomfort during pharmacologic infusion or recovery. The patient was injected with 15.0 millicuries of technetium 99m Cardiolite and subsequently rest SPECT Cardiolite nuclear imaging was obtained in the horizontal long, vertical long, and short axis views. The patient underwent pharmacologic (Regadenoson) evaluation. The patient was injected with 44.6 millicuries of technetium 99m Cardiolite and subsequently stress SPECT Cardiolite nuclear imaging was obtained in the horizontal long, vertical long, and short axis views. A gated Cardiolite study at peak stress was obtained. The examination was stopped secondary to completion of protocol. Rest and stress SPECT Cardiolite nuclear imaging status post realignment, normalization, and attenuation correction demonstrate no fixed or reversible perfusion defects. There is end systolic thickening and brightening. The gated Cardiolite study demonstrates myocardial thickening and inward wall motion. The reported LVEF is 64%. Impression: 1. Pharmacologic (Regadenoson) evaluation 2. Peak pharmacologic ECG with no ischemic change. 3. Rare PVCs noted. 5. No fixed or reversible perfusion defects. 6. The gated Cardiolite study reports an LVEF of 64%. This note was generated with [employer] for [employer] software. It may contain incorrect words, spelling, and punctuation that were not noted in checking the note before signing.
[2022-10-17] MEDS: Fluticasone 0.05% 1 SPRAY NASAL.SRY NASAL (11:36)
[2022-10-17] MEDS: Loratadine 10 MG Tablet PO (11:36)
[2022-10-17] MEDS: Insulin Lispro 100 UNIT/ML INSULN.PEN SC (11:39)
[2022-10-17] MEDS: Insulin Glargine-YFGN 100 UNIT/ML Pen 30 UNIT SC (11:40)
[2022-10-17 11:43] VITALS: BP 146/79; PULSE 99; RESP 16; TEMP 35.8; O2SAT 95
[2022-10-17 12:03] LABS: Bedside Glucose 158 mg/dL (74-106)
[2022-10-17 12:32] VITALS: PULSE 86; RESP 18
--- NOTE | 2022-10-17 13:44 | DCINST_ITS ---
Discharge Instructions Diet Discharge Diet: 1999 Calorie Control Diet Follow Up Care Test Results: Test results from this visit will be discussed in further detail at your follow- up appointment, if applicable. Discharge Plan Admission Admit Date/Time: 10/15/22 16:04 Primary Reason for Your Visit: Chest pain. Vertigo Attending Provider: Abrahan Mejia Primary Care Provider: [facility] Instructions Additional Instructions / Restrictions: You presented with dizziness and chest pain. Your stress test was negative (normal), therefore your heart is doing well and no additional work up at this time. Please, follow up with your building associate at the [facility]. Your dizziness was likely due to inner-ear vertigo. It may or may not recur. If it does recur, try taking meclizine (brand name Antivert). You do not have a mechanical heart valve, but a BIOPROSTHETIC heart valve, and you therefore, do not need to be on anticoagulation for this type of heart valve. You had been on warfarin after your valve replacement for transient (short-term) atrial fibrillation, which resolved and they took you off of it. If you happen to go to a medical office outside of the [place] or another hospital, be sure to tell them you have a bioprosthetic heart valve (aka, pig valve or cow valve). 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 Discharge Orders/Prescriptions Prescriptions: New meclizine 12.5 mg Tablet 12.5 mg PO TID PRN PRN (Reason: dizziness) Qty: 10 0RF Continued albuterol sulfate 90 mcg/actuation Hfa Aerosol Inhaler 2 puff INHALATION Q6H PRN (Reason: Dyspnea) fluticasone propionate 50 mcg/actuation [place],Suspension 1 spray INTRANASAL Q12H Rx Instructions: administer into each nostril loratadine 10 mg Tablet 10 mg PO DAILY Breztri Aerosphere 160-9-4.8 mcg/actuation Hfa Aerosol Inhaler 2 inh INHALATION BID acetaminophen [Tylenol] 325 mg tablet 325 mg PO Q8H PRN PRN (Reason: left shoulder pain) diltiazem HCl [Cardizem CD] 180 mg capsule,extended release 24hr 180 mg PO Q24H meloxicam 7.5 mg tablet 7.5 mg PO PRN lisinopril [Zestril] 10 mg tablet 10 mg PO DAILY melatonin 10 mg capsule 10 mg PO QHS vitamin B complex [B Complex-Vitamin B12] Tablet 1 tab PO DAILY metformin 1,000 mg tablet 1,000 mg PO BID insulin glargine [Lantus U-100 Insulin] 100 unit/mL solution 30 unit subcut BID Discontinued doxycycline hyclate 100 mg tablet 100 mg PO BID Referrals / Follow Up: [facility] [Primary Care Provider] - Within 2 Weeks Disposition Disposition (needs filled in before D/C Order can be placed): Home, Self Care
--- NOTE | 2022-10-17 13:50 | EKG12_ITS ---
Test Reason : ADMISSION EKG Blood Pressure : / mmHG Vent. Rate : 079 BPM Atrial Rate : 079 BPM P-R Int : 160 ms QRS Dur : 102 ms QT Int : 386 ms P-R-T Axes : -01 003 041 degrees QTc Int : 442 ms Sinus rhythm with frequent Premature ventricular complexes Possible Inferior infarct , age undetermined Abnormal ECG When compared with ECG of 15-OCT-2022 13:53, MANUAL COMPARISON REQUIRED, DATA IS UNCONFIRMED Confirmed by EDDA YBARRA, TANVIR ([id number]), development editor NGHIA ACEVEDO ([id number]) on 10/25/2022 7:22:22 AM Referred By: SARAH Confirmed By:TANVIR BAÑUELOS MD
--- NOTE | 2022-10-17 13:54 | DS.PCM_ITS ---
Providers Date of Admission: 10/15/22 Primary Care Physician: [facility] Reason For Visit: CHEST PAIN Diagnosis Discharge Diagnosis (1) Chest pain: Status: Acute Code(s): R07.9 - Chest pain, unspecified Qualifiers: Chest pain type: unspecified Qualified Code(s): R07.9 - Chest pain, unspecified Plan: Atypical No evidence of myocardial infarction at this time Continue to cycle troponins Administer aspirin and continue with aspirin daily Plan for a nuclear stress test on the . Patient and his daughter are aware that we will not be able to be performed until then. If evidence of myocardial infarction, may need to consider consulting cardiology discontinuing the stress test. (2) Vertigo: Status: Acute Code(s): R42 - Dizziness and giddiness Plan: Resolved Suspect BPPV As needed meclizine Physical therapy for vestibular therapy. (3) H/O mechanical aortic valve replacement: Status: Acute Code(s): Z95.2 - Presence of prosthetic heart valve Plan: Per the patient's history, he stated that he had been on warfarin for about 6 months after the valve replacement and then that was discontinued. He does not know why it was discontinued but he stated that other than bleeding when he would cut himself, he had no other life-threatening or dangerous bleeding. We will request records from the [place] to see if patient does indeed have mechanical aortic valve. (I reviewed [employer], [place] records are unavailable through it) I personally reviewed [place] records. Pt has the Trifecta bioprosthetic heart valve--not a mechanical heart valve. He did have a transient atrial fibrillation after his valve replacement and had been on warfarin for short period of time after that but then was taken off ST maintain sinus rhythm. No need for any further anticoagulation. Did discuss with the patient that he has a bioprosthetic heart valve and not a mechanical heart valve. Plan Chronic conditions * Diabetes mellitus type 2: Insulin-dependent. Patient does take insulin twice daily. We will wait on the final report and administer that medication. In the interim sliding scale insulin. * COPD versus asthma: Chronic. Patient states he has been told that he has 1 or both of these. Which ever he has, he is not on exacerbation at this time. Supportive management. * Paroxysmal atrial fibrillation: [id number] score of 3. Patient is agreeable to anticoagulation for now. If patient does have mechanical aortic valve then the recommendation would be for warfarin. CODE STATUS: Addressed with the patient. Patient wishes to be full code. Disposition: Patient will be here through the waiting on stress test. Unfortunate this time there is no medical necessity to warrant admission at this point in time. If there is a change in his status, then that can be changed at a later point. Patient is currently under observation status. Medications at Discharge Home Medications albuterol sulfate 90 mcg/actuation aerosol inhaler 2 puff inhalation Q6H PRN Dyspnea 12/01/21 budesonide 160 mcg-glycopyr 9 mcg-formot 4.8 mcg/actuation HFA inhaler (Breztri Aerosphere) 2 inh inhalation BID 12/01/21 fluticasone propionate 50 mcg/actuation nasal spray,suspension 1 spray intranasa l Q12H 12/01/21 loratadine 10 mg tablet 10 mg PO DAILY 12/01/21 acetaminophen 325 mg tablet (Tylenol) 325 mg PO Q8H PRN PRN left shoulder pain 10/15/22 diltiazem HCl 180 mg capsule,extended release 24 hr (Cardizem CD) 180 mg PO Q24H 10/15/22 insulin glargine 100 unit/mL subcutaneous solution (Lantus U-100 Insulin) 30 unit subcut BID 10/15/22 lisinopril 10 mg tablet (Zestril) 10 mg PO DAILY 10/15/22 melatonin 10 mg capsule 10 mg PO QHS 10/15/22 meloxicam 7.5 mg tablet 7.5 mg PO PRN 10/15/22 metformin 1,000 mg tablet 1,000 mg PO BID 10/15/22 vitamin B complex (B Complex-Vitamin B12 tablet) 1 tab PO DAILY 10/15/22 meclizine 12.5 mg tablet 12.5 mg PO TID PRN PRN dizziness #10 tabs 10/17/22 Hospital Course Operations None Procedures Stress test Summary of Care Provided Minutes Spent on Discharge: 35 Weight / BMI Weight Weight: 120.8 kg Body Mass Index (BMI) 37.1 ABG / Lab / Microbiology Data 10/17/22 06:05 10/17/22 06:05 Laboratory: Laboratory Results - last 24 hr 10/16/22 05:43: Magnesium 2.1 10/16/22 17:02: POC Glucose 127 H 10/16/22 20:27: POC Glucose 160 H 10/17/22 06:05: WBC 9.7, RBC 4.62, Hgb 13.8, Hct 40.3, MCV 87.2, MCH 29.9, MCHC 34.2 D, RDW Std Deviation 41.3, RDW Coeff of Asad 13.1, Plt Count 161, MPV 10.7, Immature Gran % (Auto) 0.400, Neut % (Auto) 69.6, Lymph % (Auto) 17.2 L, [place] % (Auto) 9.6, Eos % (Auto) 2.7, Baso % (Auto) 0.5, Absolute Neuts (auto) 6.8, Absolute Lymphs (auto) 1.67, Nucleated RBC % 0, Sodium 138, Potassium 4.0, Chloride 107, Carbon Dioxide 25.0, Anion Gap 6, BUN 15, Creatinine 0.76, Estim Creat Clear Calc 71.12, Est GFR (MDRD) Af Amer 129, Est GFR (MDRD) Non-Af 106, BUN/Creatinine Ratio 19.6, Glucose 134 H, Calcium 9.1, Total Bilirubin 0.50, AST 24, ALT 35, Alkaline Phosphatase 50, Total Protein 6.8, Albumin 3.4, Globulin 3.4, Albumin/Globulin Ratio 1.0 10/17/22 06:48: POC Glucose 123 H 10/17/22 11:37: POC Glucose 158 H D/C Instructions Discharge Diet: 2000 Calorie Control Diet Meaningful Use Info Meaningful Use Diagnoses (Choose all that apply): None applicable Discharge Plan Admission Admit Date/Time: 10/15/22 16:04 Primary Reason for Your Visit: Chest pain. Vertigo Attending Provider: Abrahan Mejia Primary Care Provider: [facility] Instructions Additional Instructions / Restrictions: You presented with dizziness and chest pain. Your stress test was negative (normal), therefore your heart is doing well and no additional work up at this time. Please, follow up with your gas leak inspector helper at the [facility]. Your dizziness was likely due to inner-ear vertigo. It may or may not recur. If it does recur, try taking meclizine (brand name Antivert). You do not have a mechanical heart valve, but a BIOPROSTHETIC heart valve, and you therefore, do not need to be on anticoagulation for this type of heart valve. You had been on warfarin after your valve replacement for transient (short-term) atrial fibrillation, which resolved and they took you off of it. If you happen to go to a medical office outside of the [place] or another hospital, be sure to tell them you have a bioprosthetic heart valve (aka, pig valve or cow valve). 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 Discharge Orders/Prescriptions Prescriptions: New meclizine 12.5 mg Tablet 12.5 mg PO TID PRN PRN (Reason: dizziness) Qty: 10 0RF Continued albuterol sulfate 90 mcg/actuation Hfa Aerosol Inhaler 2 puff INHALATION Q6H PRN (Reason: Dyspnea) fluticasone propionate 50 mcg/actuation [place],Suspension 1 spray INTRANASAL Q12H Rx Instructions: administer into each nostril loratadine 10 mg Tablet 10 mg PO DAILY Breztri Aerosphere 160-9-4.8 mcg/actuation Hfa Aerosol Inhaler 2 inh INHALATION BID acetaminophen [Tylenol] 325 mg tablet 325 mg PO Q8H PRN PRN (Reason: left shoulder pain) diltiazem HCl [Cardizem CD] 180 mg capsule,extended release 24hr 180 mg PO Q24H meloxicam 7.5 mg tablet 7.5 mg PO PRN lisinopril [Zestril] 10 mg tablet 10 mg PO DAILY melatonin 10 mg capsule 10 mg PO QHS vitamin B complex [B Complex-Vitamin B12] Tablet 1 tab PO DAILY metformin 1,000 mg tablet 1,000 mg PO BID insulin glargine [Lantus U-100 Insulin] 100 unit/mL solution 30 unit subcut BID Discontinued doxycycline hyclate 100 mg tablet 100 mg PO BID Referrals / [facility]: [facility] [[facility] - Within 2 Weeks Disposition Disposition (needs filled in before D/C Order can be placed): Home, Self Care Charges/Coding Visit Charges Inpatient E&M: 48884 Disch Hosp >30min
--- NOTE | 2022-10-17 14:33 | CASEMGMT ---
RN CM updated that patient will be discharging on Eliquis. THEODORE CM called [facility] Retail Rx and savings card was applied. RN CM in to discuss discharge needs with patient. Patient denies needs at discharge. RN CM instructed [facility]. Patient voiced understanding and had no further questions or concerns.
--- NOTE | 2022-10-17 14:38 | PHA.DC.MC.R ---
Pharmacy [facility] has performed discharge medication reconciliation and counseling for this patient. Patient requested meds to beds, this [facility] called retail and requested meds to beds. 1. APIXABAN 5MG PO BID 2. MECLIZINE 12.5MG PO TID PRN DIZZINESS The patient's discharge medication list was reviewed for discrepancies and discrepancies were resolved. The patient was counseled on the following discharge medications and changes in medications for homegoing were reviewed. The Reason for Use, instructions for use, and potential side effects were reviewed for all new medications. The patient's questions regarding all of their medications were answered. The patient was able to verbally demonstrate an understanding of their discharge medications. Patient counseled by pharmacy technician traineeTramaine. Medications at Discharge Home Medications albuterol sulfate 90 mcg/actuation aerosol inhaler 2 puff inhalation Q6H PRN Dyspnea 12/01/21 budesonide 160 mcg-glycopyr 9 mcg-formot 4.8 mcg/actuation HFA inhaler (Breztri Aerosphere) 2 inh inhalation BID 12/01/21 fluticasone propionate 50 mcg/actuation nasal spray,suspension 1 spray intranasal Q12H 12/01/21 loratadine 10 mg tablet 10 mg PO DAILY 12/01/21 acetaminophen 325 mg tablet (Tylenol) 325 mg PO Q8H PRN PRN left shoulder pain 10/15/22 diltiazem HCl 180 mg capsule,extended release 24 hr (Cardizem CD) 180 mg PO Q24H 10/15/22 insulin glargine 100 unit/mL subcutaneous solution (Lantus U-100 Insulin) 30 unit subcut BID 10/15/22 lisinopril 10 mg tablet (Zestril) 10 mg PO DAILY 10/15/22 melatonin 10 mg capsule 10 mg PO QHS 10/15/22 meloxicam 7.5 mg tablet 7.5 mg PO PRN 10/15/22 metformin 1,000 mg tablet 1,000 mg PO BID 10/15/22 vitamin B complex (B Complex-Vitamin B12 tablet) 1 tab PO DAILY 10/15/22 apixaban 5 mg tablet 5 mg PO BID #60 tabs 10/17/22 meclizine 12.5 mg tablet 12.5 mg PO TID PRN PRN dizziness #10 tabs 10/17/22
== END 2022-10-17 16:19 | disposition home or self-care (01) ==
LOC: ED 15:49 → PCU 16:08
PROVIDERS: Family Medicine; Emergency Provider Emergency Medicine
DX: R07.89 Other chest pain (principal); I48.0 Paroxysmal atrial fibrillation; E11.9 Type 2 diabetes mellitus without complications; Z79.4 Long term (current) use of insulin; E78.5 Hyperlipidemia, unspecified; R42 Dizziness and giddiness; Z87.891 Personal history of nicotine dependence; I10 Essential (primary) hypertension; I25.10 Atherosclerotic heart disease of native coronary artery without angina pectoris; Z95.2 Presence of prosthetic heart valve; Z79.899 Other long term (current) drug therapy; E66.9 Obesity, unspecified; G47.33 Obstructive sleep apnea (adult) (pediatric); Z68.38 Body mass index [BMI] 38.0-38.9, adult
CPT/HCPCS: 36415; 71045; 78452; 80048; 80053; 80061; 82962; 83735; 84484; 85025; 93005; 93017; 94640; 96372; 99221; 99285; A9500; A4216; G0378; J2785

== ENCOUNTER 2023-08-07 18:15 | Inpatient (IN) | payer OTHER, SELFPAY ==
[2023-08-07] VITALS (11 sets, daily range): BP systolic 120–155; BP diastolic 54–87; PULSE 93–115; RESP 18–32; TEMP 36.6–37.1; O2SAT 89–98; BMI 35.4; BMI 38.7
--- NOTE | 2023-08-07 18:30 | RAD_ITS ---
STUDY: X-RAY CHEST REASON FOR EXAM: Male, 73 years old. chest pain TECHNIQUE: Single AP portable view of the chest. COMPARISON: 10/15/2022 FINDINGS: Status post median sternotomy. Alveolar opacity in the mid right lung consistent with right upper lobe pneumonia. There is no demonstrated pleural abnormality. There is moderate cardiac enlargement. Normal mediastinum and alexa. Normal visualized pulmonary arteries. There is atherosclerotic tortuosity of the aortic arch and descending thoracic aorta. Normal visualized thoracic spine. Normal visualized ribs, clavicles, and shoulders. There is no demonstrated abnormality of the visualized soft tissue structures of the upper abdomen. RAD/Chest 1 View (Portable) IMPRESSION: Right upper lobe pneumonia. Cardiomegaly. Electronically Signed: Ilya Wheeler MD at 19:26 EDT ,
--- NOTE | 2023-08-07 18:30 | EKG12_ITS ---
Test Reason : CP Blood Pressure : / mmHG Vent. Rate : 110 BPM Atrial Rate : 110 BPM P-R Int : 174 ms QRS Dur : 098 ms QT Int : 344 ms P-R-T Axes : 052 021 064 degrees QTc Int : 465 ms Sinus tachycardia with Premature atrial complexes Otherwise normal ECG Confirmed by Osman Mayen ([id number]), graphic editor EMELYN STOCKTON ([id number]) on 08/08/2023 10:03:16 AM Referred By: LIZ Confirmed By:Osman Mayen
[2023-08-07 18:50] LABS: Absolute Lymphocyte Count 0.87 X10^3/uL (0.83-4.51); Absolute Neutrophil Count 10.1 X10^3/uL (2.0-7.7); Basophil# 0.06 X10^3/uL; Basophil% 0.5 % (0-1); Eosinophil# 0.02 X10^3/uL; Eosinophils% 0.2 % (0-5); Hematocrit 38.5 % (40-54); Lymphocyte # 0.87 X10^3/ul (0.83-4.51); Lymphocyte % 6.9 % (19-41); Mean Corp Hgb Conc 33.8 g/dL (32-36); Mean Corpuscular Hgb 29.2 pg (27.0-32.0); Mean Corpuscular Volume 86.5 fL (80-94); Mean Platelet Vol. 11.1 fl (6.2-12.0); Monocyte# 1.45 X10^3/uL; Monocyte% 11.5 % (0-10); NRBC Flagged by Analyzer 0 % (0-5); Neutrophil % 80.3 % (47-70); Platelet Count 159 K/mm3 (150-450); RBC Distribution Width CV 13.5 % (11.6-14.6); RBC Distribution Width SD 42.3 fl (35.1-43.9); Red Blood Count 4.45 M/mm3 (4.6-6.2); White Blood Count 12.6 K/mm3 (4.4-11.0)
[2023-08-07 19:08] LABS: Anion Gap 5 (5-15); BUN 18 mg/dL (7-18); Calcium,Total 8.9 mg/dL (8.5-10.1); Chloride 104 mmol/L (98-107); Creatinine, Serum 0.95 mg/dL (0.70-1.30); EST Glomerular Filtration Rate 83 mL/min (>60); Est Glom Filt Rate - Afr Amer 100 mL/min (>60); Estimated Creatinine Clearance 89.35 ml/min; Glucose 212 mg/dL (74-106); Potassium 4.1 mmol/L (3.5-5.1); Sodium Level 135 mmol/L (136-145); Troponin-I HS (w/2H Reflex) 47 pg/mL (3.0-78.0)
--- NOTE | 2023-08-07 20:10 | ED.VIS.CHEST ---
HPI History of Present Illness Chief Complaint: Chest Pain Informant: patient Onset/Context/Timing Onset: Today Activity at onset: rest Timing: Continuous Quality: Positive for Pressure Location: Substernal Worsened By: Nothing Relieved By: Nothing Associated Symptoms: Positive for Nausea, Vomiting and Dyspnea; Negative for Diaphoresis, Cough, Fever, Lightheadedness, Acid Reflux or Palpitations Narrative Narrative: Patient presents with chest pain that began today. Patient states it began when he woke up this morning. Patient states it feels like a pressure over the substernal area. Patient states nothing makes it better nothing makes it worse. Patient admits to some nausea and vomiting with it. Patient admits to some shortness of breath and lightheadedness with the pain. Patient denies any cough or fever. Patient denies any diaphoresis. CVD Risk Factors: Positive for Diabetes; Negative for Hypertension, Hypercholesterolemia, Family History 1' </=55 or Smoking PE Risk Factors: Negative for Recent Travel/Surgery, Recent Immobilization, Prior DVT or PE, Cancer or OCP + Smoking + >/=35 PFSH PFSH Medical History Aortic valve stenosis Atherosclerotic heart disease of [place] coronary artery without angina pectoris COPD exacerbation History of aortic valve stenosis Hyperlipidemia, unspecified Obesity (BMI 35.0-39.9 without comorbidity) VICKI on CPAP Type 2 diabetes mellitus without complications Home Medications albuterol sulfate 90 mcg/actuation aerosol inhaler 2 puff inhalation Q6H PRN Dyspnea 12/01/21 [History Last Taken Unknown] budesonide 160 mcg-glycopyr 9 mcg-formot 4.8 mcg/actuation HFA inhaler (Breztri Aerosphere) 2 inh inhalation BID 12/01/21 [History Last Taken 08/07/23] fluticasone propionate 50 mcg/actuation nasal spray,suspension 1 spray intranasal Q12H 12/01/21 [History Last Taken 08/07/23] loratadine 10 mg tablet 10 mg PO DAILY 12/01/21 [History Last Taken 08/07/23] acetaminophen 325 mg tablet (Tylenol) 325 mg PO Q8H PRN left shoulder pain 10/15/22 [History Last Taken 08/07/23] diltiazem HCl 180 mg capsule,extended release 24 hr (Cardizem CD) 180 mg PO DAILY 10/15/22 [History Last Taken 08/07/23] insulin glargine 100 unit/mL subcutaneous solution (Lantus U-100 Insulin) 30 unit subcut BID 10/15/22 [History Last Taken 08/07/23] lisinopril 10 mg tablet (Zestril) 10 mg PO DAILY 10/15/22 [History Last Taken 08/07/23] melatonin 10 mg capsule 10 mg PO QHS 10/15/22 [History Last Taken 08/07/23] metformin 1,000 mg tablet 1,000 mg PO BID 10/15/22 [History Last Taken 08/07/23] vitamin B complex (B Complex-Vitamin B12 tablet) 1 tab PO DAILY 10/15/22 [History Last Taken 08/07/23] aspirin 81 mg tablet,delayed release 81 mg PO DAILY 08/07/23 [History Last Taken 08/07/23] cholecalciferol (vitamin D3) 25 mcg (1,000 unit) tablet 25 mcg PO DAILY SUPPLEMENT 08/07/23 [History Last Taken 08/07/23] Allergy/AdvReac Type Severity Reaction Status Date / Time No Known Allergies Allergy Verified 10/15/22 13:55 Surgical History H/O mechanical aortic valve replacement History of arthroplasty of right knee History of prosthetic aortic valve Mechanical heart valve present Social History Smoking Status: Former smoker ROS ROS ED Constitutional Constitutional ED: Reports chills; Denies fever(s) Eyes Eyes: Denies blurry vision or change in vision ENT ENT ED: Denies rhinorrhea or sore throat Cardiovascular Cardiovascular: Reports chest pain; Denies palpitations Respiratory/Chest Respiratory/Chest: Reports dyspnea; Denies cough Gastrointestinal Gastrointestinal: Reports nausea and vomiting; Denies abdominal pain Genitourinary Genitourinary ED: Denies dysuria or hematuria Musculoskeletal Musculoskeletal: Denies back pain or neck pain Integumentary Denies abscess or rash Neurologic Neurologic: Denies headache(s) or weakness Allergic/Immunologic Allergic/Immunologic ED: Denies mouth swelling or urticaria EXAM Physical Exam Const Vital Signs: 08/07/23 18:17 08/07/23 18:30 08/07/23 19:16 Temperature 98.5 F Temperature Source Oral Pulse Rate 115 H 98 Respiratory Rate 32 H 22 H Blood Pressure 149/64 H 125/64 H Blood Pressure Mean 92 84 Pulse Ox 93 93 90 Oxygen Delivery Method Room Air Room Air Room Air 08/07/23 20:00 08/07/23 20:39 Temperature 98.8 F Temperature Source Temporal Pulse Rate 97 97 Respiratory Rate 20 H Blood Pressure 127/54 H 129/60 H Blood Pressure Mean 78 Pulse Ox 90 Oxygen Delivery Method Room Air Positive well nourished, well developed and obese General Appearance ED: well developed and NAD Nutritional Appearance: obese HEENT Reports moist mucous membranes Neck supple and no JVD Chest Wall inspection of chest normal and palpation of chest normal Resp normal respiratory effort and clear to auscultation bilaterally Cardio regular rate and regular rhythm GI soft to palpation, non-tender and non-distended Extremity normal to inspection General Extremety ED: Negative for edema or tenderness General Extremity: Negative for edema Neuro oriented x3, CN's II-XII intact bilaterally and no sensory deficits noted Sensorium / Orientation: awake and alert Motor Exam: strength 5/5 throughout Psych mental status grossly normal Heart Score History: Moderately Suspicious ECG: Normal Age: >/= 65 years Risk Factors: 1 or 2 Risk Factors Troponin: </= Normal Limit Score: 4 MDM MDM MDM Narrative Medical decision making narrative: Differential diagnosis includes cardiac dysrhythmia, cardiac ischemia, pneumonia, pneumothorax, electrolyte abnormality, gastroesophageal reflux disease, musculoskeletal pain, and anxiety. EKG will be obtained to assess for cardiac dysrhythmia and cardiac ischemia. Chest x-ray will be obtained to assess for pneumonia and pneumothorax. CBC will be obtained to assess for leukocytosis and anemia. Basic metabolic profile will be obtained to assess for electrolyte abnormality and renal function. High-sensitivity troponin will be obtained to assess for cardiac ischemia. 2-hour repeat high-sensitivity troponin will be obtained to assess for ongoing cardiac ischemia. Lab Data Attestation: I reviewed the patient's lab results. Lab results narrative: CBC was reviewed. There is a mild leukocytosis of 12.6. The remainder is within normal limits. Basic metabolic profile was reviewed. Glucose was slightly elevated at 212. Anion gap was normal. CO2 was normal. High-sensitivity troponin was reviewed and was normal at 47. Labs: Laboratory Results - last 24 hr 08/07/23 18:24 WBC 12.6 H RBC 4.45 L Hgb 13.0 Hct 38.5 L MCV 86.5 MCH 29.2 MCHC 33.8 RDW Std Deviation 42.3 RDW Coeff of Asad 13.5 Plt Count 159 MPV 11.1 Immature Gran % (Auto) 0.600 Neut % (Auto) 80.3 H Lymph % (Auto) 6.9 L [place] % (Auto) 11.5 H Eos % (Auto) 0.2 Baso % (Auto) 0.5 Absolute Neuts (auto) 10.1 H Absolute Lymphs (auto) 0.87 Nucleated RBC % 0 Sodium 135 L Potassium 4.1 Chloride 104 Carbon Dioxide 26.0 Anion Gap 5 BUN 18 Creatinine 0.95 Estim Creat Clear Calc 89.35 Est GFR (MDRD) Af Amer 100 Est GFR (MDRD) Non-Af 83 BUN/Creatinine Ratio 19.0 Glucose 212 H Calcium 8.9 Troponin I High Sens 47 Radiography Chest X-Ray - ED: 1 View, Read by ED Physician, Read by Radiologist, Cardiomegaly and Right Infiltrate Diagnostic Testing: Clinical Impression(s) from Imaging Studies Chest X-Ray 08/07/23 18:30 IMPRESSION: Right upper lobe pneumonia. Cardiomegaly. Electronically Signed: Ilya Wheeler MD at 19:26 EDT , Chest x-ray was obtained. There is 1 view. On my independent interpretation, there is a right upper lobe infiltrate. There is cardiomegaly noted. Bony thorax is normal. There is no pneumothorax. There is no evidence of congestive heart failure. Radiologist also interpreted the x-ray and agrees. EKG Initial EKG: Attestation: I personally reviewed and interpreted this EKG as follows: Interpretation: No Acute Injury Pattern and Sinus Tachycardia (110) Comments: EKG was obtained. On my independent interpretation it shows a sinus tachycardia with a rate of 110 with occasional PACs. NE interval, QRS normal, and QTc intervals are within normal limits. [place] is normal. There are no acute ST or T wave changes noted. Prior EKG tracings: available for review Prior: Unchanged (10/17/2022) Management Discussion w/another healthcare provider: Hospitalist Treatment and Re-Evaluation :: Patient was given aspirin here. Patient was started on Rocephin and Zithromax for the right upper lobe infiltrate. Patient was advised of his findings. Patient has a HEART score of 4. Because of this, I recommended admission to the hospital. Patient is agreeable with this. Case was discussed with the hospitalist. He will admit the patient to his service. Patient understood and was agreeable with the plan. All questions were answered. Discharge Plan Triage Chief Complaint: Chest Pain ED Provider: Abrahan Carr Dx/Rx/DC Orders Clinical Impression: Chest pain, Pneumonia Prescriptions: No Action albuterol sulfate 90 mcg/actuation Hfa Aerosol Inhaler 2 puff INHALATION Q6H PRN (Reason: Dyspnea) fluticasone propionate 50 mcg/actuation [place],Suspension 1 spray INTRANASAL Q12H Rx Instructions: administer into each nostril loratadine 10 mg Tablet 10 mg PO DAILY Breztri Aerosphere 160-9-4.8 mcg/actuation Hfa Aerosol Inhaler 2 inh INHALATION BID acetaminophen [Tylenol] 325 mg tablet 325 mg PO Q8H PRN (Reason: left shoulder pain) diltiazem HCl [Cardizem CD] 180 mg capsule,extended release 24hr 180 mg PO DAILY lisinopril [Zestril] 10 mg tablet 10 mg PO DAILY melatonin 10 mg capsule 10 mg PO QHS vitamin B complex [B Complex-Vitamin B12] Tablet 1 tab PO DAILY metformin 1,000 mg tablet 1,000 mg PO BID insulin glargine [Lantus U-100 Insulin] 100 unit/mL solution 30 unit subcut BID cholecalciferol (vitamin D3) 25 mcg (1,000 unit) tablet 25 mcg PO DAILY aspirin 81 mg tablet,delayed release (DR/EC) 81 mg PO DAILY [facility] [Primary [facility] Provider] - Disposition Disposition: Acute Care Hospital [facility]
[2023-08-07] MEDS: Nitroglycerin SL (ED/IMG/CATH) 0.4 MG TABLET SL (20:39)
[2023-08-07] MEDS: Aspirin 81 MG TAB.CHEW 324 MG PO (20:39)
[2023-08-07 20:46] LABS: Reflex Troponin-HS? (from REC) Y
--- NOTE | 2023-08-07 21:02 | HP.PCM.HOS_ITS ---
[facility] - General General Date of Admission: 08/07/23 Date of Service: 08/07/23 Chief Complaint: Chest pain and SOB. HPI Narrative MANJU SANCHEZ, is a 73 M with a past medical history of essential hypertension, obesity; with BMI 35.4 this admission, diabetes mellitus type 2; of unknown control, VICKI; on CPAP, history of aortic valve stenosis; s/p aortic valve replacement with Trifecta bioprosthetic heart valve (not a mechanical heart valve), history of tobacco abuse; with subsequent COPD, history of PAF; previously on Cardizem and apixaban, coronary artery disease, history of BPPV; on as needed meclizine and osteoarthritis; with history of right TKR chronically followed at the [facility] who presents to [facility] complaining of chest pain and SOB. Mr. Sanchez reports his symptoms began early this morning when he awakened and felt pressure-like, substernal, nonradiating and with nothing making the pain better or worse. He also admits to associated nausea with bilious emesis along with mild shortness of breath and lightheadedness when the pain would intensify. He denies associated cough, fever, diaphoresis, diarrhea or constipation. In the ER he was noted to have x- ray evidence of right upper lobe infiltrate consistent with suspected community- acquired pneumonia accompanied by leukocytosis of 12.6 present on admission complicated by chest pain and he was then admitted to the PCU for ongoing care for stay that is expected to be greater than 2 midnights. [facility] Medical History Aortic valve stenosis Atherosclerotic heart disease of [place] coronary artery without angina pectoris COPD exacerbation History of aortic valve stenosis Hyperlipidemia, unspecified Obesity (BMI 35.0-39.9 without comorbidity) VICKI on CPAP Type 2 diabetes mellitus without complications Home Medications albuterol sulfate 90 mcg/actuation aerosol inhaler 2 puff inhalation Q6H PRN Dyspnea 12/01/21 [History Last Taken Unknown] budesonide 160 mcg-glycopyr 9 mcg-formot 4.8 mcg/actuation HFA inhaler (Breztri Aerosphere) 2 inh inhalation BID 12/01/21 [History Last Taken 08/07/23] fluticasone propionate 50 mcg/actuation nasal spray,suspension 1 spray intranasal Q12H 12/01/21 [History Last Taken 08/07/23] loratadine 10 mg tablet 10 mg PO DAILY 12/01/21 [History Last Taken 08/07/23] acetaminophen 325 mg tablet (Tylenol) 325 mg PO Q8H PRN left shoulder pain 10/15/22 [History Last Taken 08/07/23] diltiazem HCl 180 mg capsule,extended release 24 hr (Cardizem CD) 180 mg PO DAILY 10/15/22 [History Last Taken 08/07/23] insulin glargine 100 unit/mL subcutaneous solution (Lantus U-100 Insulin) 30 unit subcut BID 10/15/22 [History Last Taken 08/07/23] lisinopril 10 mg tablet (Zestril) 10 mg PO DAILY 10/15/22 [History Last Taken 08/07/23] melatonin 10 mg capsule 10 mg PO QHS 10/15/22 [History Last Taken 08/07/23] metformin 1,000 mg tablet 1,000 mg PO BID 10/15/22 [History Last Taken 08/07/23] vitamin B complex (B Complex-Vitamin B12 tablet) 1 tab PO DAILY 10/15/22 [History Last Taken 08/07/23] aspirin 81 mg tablet,delayed release 81 mg PO DAILY 08/07/23 [History Last Taken 08/07/23] cholecalciferol (vitamin D3) 25 mcg (1,000 unit) tablet 25 mcg PO DAILY SUP PLEMENT 08/07/23 [History Last Taken 08/07/23] Allergy/AdvReac Type Severity Reaction Status Date / Time No Known Allergies Allergy Verified 10/15/22 13:55 Surgical History H/O mechanical aortic valve replacement History of arthroplasty of right knee History of prosthetic aortic valve Mechanical heart valve present Social History Smoking Status: Former smoker ROS ROS Narrative Review of systems: General: Patient denies fevers or chills. HENT: Denies headache, denies stuffy nose, denies sore throat EYES: Denies changes in vision or discharge from eyes. Resp: Patient admits to shortness of breath coinciding with his chest pain as per HPI. Cardiac: Patient admits to chest pain that was pressure-like and substernal with nothing making it better or worse as per HPI. GI: Denies abdominal pain, denies changes in bowel but he had some nausea and bilious emesis as per HPI. : Denies changes in urination Extremity: Denies swelling Musculoskeletal: Feels somewhat generally weak and unwell but denies arthralgias or myalgias. Neuro: Patient denies headache, paresthesias or focal neurologic weakness. Heme: Denies any bleeding or bruising Skin: Denies rashes Psychiatric: No complaints voiced related to uncontrolled depression or anxiety. Endocrine: No polyuria, polydipsia or polyphagia. The rest of the 14 point ROS was negative except for positives in HPI. Vital Signs Vital Signs Vital Signs: 08/07/23 18:17 08/07/23 18:30 08/07/23 19:16 Temperature 98.5 F Temperature Source Oral Pulse Rate 115 H 98 Respiratory Rate 32 H 22 H Blood Pressure 149/64 H 125/64 H Blood Pressure Mean 92 84 Pulse Ox 93 93 90 Oxygen Delivery Method Room Air Room Air Room Air 08/07/23 20:00 08/07/23 20:39 Temperature 98.8 F Temperature Source Temporal Pulse Rate 97 97 Respiratory Rate 20 H Blood Pressure 127/54 H 129/60 H Blood Pressure Mean 78 Pulse Ox 90 Oxygen Delivery Method Room Air Weight Weight: 253 lb 12.033 oz Body Mass Index (BMI) 35.4 Physical Exam Const alert, oriented x3, no apparent distress and healthy appearing Constitutional Narrative: Patient is obese. General Appearance: cooperative HEENT normocephalic, head/scalp atraumatic, hearing grossly normal bilaterally and moist oral mucous membranes Eyes PERRL and EOMs intact bilaterally Neck no lymphadenopathy and supple Resp clear to auscultation bilaterally Resp Narrative: Decreased breath sounds over right upper lobe. Cardio regular rate and regular rhythm GI normal to inspection, nondistended, normoactive bowel sounds, soft to palpation, non-tender and non-distended Extremity normal to inspection, full ROM and no clubbing, cyanosis or edema Skin Skin Narrative: Patient has no evidence of abscess, rash or jaundice. Neuro oriented x3, CN's II-XII intact bilaterally, moves all extremities and no focal motor deficits Sensorium / Orientation: awake, alert, oriented to person, oriented to place and oriented to time Speech: speech normal Motor Exam: strength 5/5 throughout Psych affect normal Results Medical Records Data Attestation: I reviewed the patient's medical records Lab / Micro Data Attestation: I reviewed the patient's lab results. 08/07/23 18:24 08/07/23 18:24 Labs: Laboratory Results - last 24 hr 08/07/23 18:24: WBC 12.6 H, RBC 4.45 L, Hgb 13.0, Hct 38.5 L, MCV 86.5, MCH 29.2, MCHC 33.8, RDW Std Deviation 42.3, RDW Coeff of Asad 13.5, Plt Count 159, MPV 11.1, Immature Gran % (Auto) 0.600, Neut % (Auto) 80.3 H, Lymph % (Auto) 6.9 L, [place] % (Auto) 11.5 H, Eos % (Auto) 0.2, Baso % (Auto) 0.5, Absolute Neuts (auto) 10.1 H, Absolute Lymphs (auto) 0.87, Nucleated RBC % 0, Sodium 135 L, Potassium 4.1, Chloride 104, Carbon Dioxide 26.0, Anion Gap 5, BUN 18, Creatinine 0.95, Estim Creat Clear Calc 89.35, Est GFR (MDRD) Af Amer 100, Est GFR (MDRD) Non-Af 83, BUN/Creatinine Ratio 19.0, Glucose 212 H, Calcium 8.9, Troponin I High Sens 47 Imaging Radiology Impression Chest X-Ray 08/07/23 18:30 IMPRESSION: Right upper lobe pneumonia. Cardiomegaly. Electronically Signed: Ilya Wheeler MD at 19:26 EDT , Assessment & Plan Assessment/Plan (1) Pneumonia: QUALIFIERS: Laterality: right Lung location: upper lobe of lung Pneumonia type: due to unspecified organism Qualified Code(s): J18.9 - Pneumonia, unspecified organism (2) Chest pain: QUALIFIERS: Chest pain type: unspecified Qualified Code(s): R07.9 - Chest pain, unspecified PLAN: Plan 1. Right upper lobe infiltrate on admission chest x-ray consistent with suspected community-acquired pneumonia with leukocytosis of 12.6 present on admission - Admit to PCU. Continue broad-spectrum antibiotics with IV Rocephin and IV azithromycin and await culture and sensitivity data. Check urine ant igens to Legionella and Streptococcus pneumonia. Give Tylenol as needed pain or fever. 2. Chest pain in the setting of known coronary artery disease complicating #1 - Serialize troponin. Check echocardiogram to evaluate LVEF. Check Lexiscan nuclear stress test in a.m. to evaluate for underlying ischemia. Continue aspirin plus as needed sublingual nitroglycerin. 3. History of aortic valve stenosis; s/p aortic valve replacement with Trifecta bioprosthetic heart valve (not a mechanical heart valve) - Noted. 4. Essential hypertension - Continue home regimen as previous plus give IV hydralazine as needed for systolic blood pressure greater than 160 mmHg. 5. Obesity; with BMI 35.4 this admission plus VICKI; on CPAP - Weight loss will be recommended. Resume nocturnal CPAP as previous. 6. Diabetes mellitus type 2; of unknown control - ADA diet. FSBS q. AC/HS plus lowest intensity sliding scale insulin. Check hemoglobin A1c to objectively evaluate quality of diabetic control. 7. History of tobacco abuse; with subsequent COPD - Stable with no evidence of flare. Continue as needed nebulizers. 8. History of PAF; previously on Cardizem and apixaban - Noted. 9. History of BPPV; on as needed meclizine - Continue as needed meclizine. 10. Osteoarthritis; with history of right TKR chronically followed at the [facility] - Give Tylenol prn. 11. DVT prophylaxis - Lovenox 40 mg sq daily. Total time: Approximately 55 minutes. Charges/Coding Visit Charges Inpatient E&M: 14303 Init Hosp L2
[2023-08-07] MEDS: Ceftriaxone 2 GM in 0.9% Normal Saline (50mL MB+) 50 ML IV (21:18)
--- NOTE | 2023-08-07 21:35 | ECHOD_ITS ---
Reason For Study: CHEST PAIN Procedure This was a 2D Doppler, Color Flow transthoracic echocardiogram. Exam performed portable in patient room. Left Ventricle Normal LV size. Moderate concentric left ventricular hypertrophy. The estimated ejection fraction is 53 %. There is borderline global hypokinesis of the left ventricle. Right Ventricle Normal RV size. Normal systolic function. Atria The left atrium is mildly enlarged. Normal right atrium. Tricuspid Valve Normal tricuspid valve. Aortic Valve Peak aortic valve gradient 44 mmHg. Mean aortic valve gradient 30 mmHg. Bioprosthetic aortic valve. Pulmonic Valve The pulmonic valve is not well visualized. Great Vessels Normal aortic root. The pulmonary artery is normal size. Normal inferior vena cava. Pericardium/Pleural No pericardial effusion. MMode/2D Measurements & Calculations LVIDd: 4.3 cm IVSd: 1.6 cm LVOT diam: 2.4 cm LVIDs: 2.9 cm LVPWd: 1.5 cm LVOT area: 4.6 cm2 RVDd: 4.1 cm FS: 33.2 % Ao root diam: 3.5 cm LAV(MOD-bp): 79.1 ml LVAd ap4: 36.9 cm2 LAV(MOD-bp) Indexed: 33.9 ml/m2 LVLd ap4: 9.0 cm LAV(MOD-sp2): 74.3 ml EDV(MOD-sp4): 130.1 ml LAV(MOD-sp4): 81.9 ml EDV(sp4-el): 127.9 ml LVAs ap4: 23.7 cm2 LVLs ap4: 8.0 cm ESV(MOD-sp4): 60.7 ml ESV(sp4-el): 59.5 ml EF(MOD-sp4): 53.4 % EF(sp4-el): 53.5 % SV(MOD-sp4): 69.4 ml SV(MOD-sp2): 62.4 ml LVAd ap2: 34.5 cm2 LVLd ap2: 9.2 cm EDV(MOD-sp2): 107.2 ml EDV(sp2-el): 109.5 ml LVAs ap2: 20.1 cm2 LVLs ap2: 8.0 cm ESV(MOD-sp2): 44.8 ml ESV(sp2-el): 43.0 ml EF(MOD-sp2): 58.2 % SV(sp4-el): 68.4 ml LA A4 area: 24.7 cm2 LA dimension(2D): 5.0 cm TAPSE: 1.4 cm RA A4 area: 15.0 cm2 Time Measurements MV dec time: 0.12 sec Doppler Measurements & Calculations MV E max rei: 112.6 cm/sec Lat Peak E' Rei: 11.7 cm/sec Med Peak E' Rei: 8.3 cm/sec MV A max rei: 87.9 cm/sec E/E' lat: 9.6 E/E' med: 13.5 MV E/A: 1.3 MV dec slope: 925.0 cm/sec2 Ao V2 max: 324.1 cm/sec PA V2 max: 129.8 cm/sec Ao max P.9 mmHg PA max PG (full): 5.0 mmHg Ao V2 mean: 251.1 cm/sec Ao mean P.2 mmHg Ao V2 VTI: 66.5 cm ECHO/Echo Complete Interpretation Summary Normal LV size. The estimated ejection fraction is 53 %. Bioprosthetic aortic valve. Mean aortic valve gradient 30 mmHg. Moderate concentric left ventricular hypertrophy. Ordering Physician: Derek Molina Performed By: Marietta Jain RDCS
[2023-08-07 22:11] LABS: Troponin-I HS 47 pg/mL (3.0-78.0)
--- NOTE | 2023-08-07 22:46 | EKG12_ITS ---
Test Reason : CP ADMIT Blood Pressure : / mmHG Vent. Rate : 100 BPM Atrial Rate : 100 BPM P-R Int : 178 ms QRS Dur : 102 ms QT Int : 372 ms P-R-T Axes : 035 016 062 degrees QTc Int : 479 ms Normal sinus rhythm Normal ECG When compared with ECG of 07-AUG-2023 18:16, MANUAL COMPARISON REQUIRED, DATA IS UNCONFIRMED Confirmed by Osman Mayen ([id number]), video tape editor EMELYN STOCKTON ([id number]) on 08/08/2023 10:07:18 AM Referred By: Confirmed By:Osman Mayen
[2023-08-07] MEDS: Azithromycin 500 MG in Dextrose 5%-Water (250mL Bag) 250 ML 250 MG IV (23:14)
[2023-08-07] MEDS: Fluticasone 0.05% 1 SPRAY NASAL.SRY NASAL (23:24)
[2023-08-07] MEDS: Lactobacillis Acidophilus 2 CAP PO (23:25)
[2023-08-07] MEDS: Insulin Glargine-YFGN 100 UNIT/ML Pen 20 UNIT SC (23:26)
[2023-08-07] MEDS: guaiFENesin 1,200 MG Tablet 1200 MG PO (23:26)
[2023-08-07] MEDS: MELATONIN 10 MG TABLET PO (23:26)
[2023-08-07 23:49] LABS: Bedside Glucose 222 mg/dL (74-106)
[2023-08-08] VITALS (9 sets, daily range): BP systolic 116–147; BP diastolic 52–67; PULSE 70–104; RESP 16–22; TEMP 36.3–37.1; O2SAT 93–97
[2023-08-08 02:08] LABS: Troponin-I HS 46 pg/mL (3.0-78.0)
[2023-08-08 04:30] LABS: Cholesterol 106 mg/dL (200); High Density Lipoprotein 36 mg/dL; Triglycerides 95 mg/dL; Very Low Density Lipoprotein 19 mg/dL (5-40)
--- NOTE | 2023-08-08 05:55 | EKG12_ITS ---
Test Reason : AM EKG Blood Pressure : / mmHG Vent. Rate : 104 BPM Atrial Rate : 104 BPM P-R Int : 168 ms QRS Dur : 098 ms QT Int : 350 ms P-R-T Axes : 048 021 064 degrees QTc Int : 460 ms Sinus tachycardia Otherwise normal ECG Confirmed by Osman Mayen ([id number]), video editor EMELYN STOCKTON ([id number]) on 08/08/2023 10:06:22 AM Referred By: Confirmed By:Osman Mayen
[2023-08-08] MEDS: Ipratropium/Albuterol Sulfate 3 ML AMPUL.NEB INHALATION ×3 (06:03→19:37)
[2023-08-08] MEDS: Budesonide Respules 0.5 MG/2 ML AMPUL.NEB. INHALATION ×2 (06:03→19:37)
[2023-08-08] MEDS: Lisinopril 10 MG Tablet PO (06:30)
[2023-08-08] MEDS: Aspirin E.C. 81 MG Tablet PO (06:37)
--- NOTE | 2023-08-08 09:30 | RAD_ITS ---
STUDY: X-RAY CHEST REASON FOR EXAM: Male, 73 years old. RUL pneumonia. TECHNIQUE: PA and lateral views of the chest. COMPARISON: Comparison is made with prior study dated August 07, 2023. FINDINGS: EKG electrodes are seen. Persistent right upper lobe pneumonia abutting the right minor fissure. Mild residual increased markings at the lung bases. Sternal cerclage wires and vascular clips are present from a prior sternotomy and coronary artery bypass graft procedure (CABG). Normal mediastinum and alexa. Normal visualized pulmonary arteries. There is atherosclerotic calcification of the aortic arch with tortuosity. There are diffuse degenerative changes of the visualized thoracic spine. Normal visualized ribs, clavicles, and shoulders. There is no demonstrated abnormality of the visualized soft tissue structures of the upper abdomen. RAD/Chest PA and Lateral IMPRESSION: Essentially stable examination. Electronically Signed: Dex Reyes MD at 13:55 EDT ,
--- NOTE | 2023-08-08 10:56 | CASEMGMT ---
THEODORE BLAND Assessment Face to Face with patient for initial transition planning/care coordination assessment. THEODORE BLAND introduced self and role at [facility], pt voices understanding. Pt is A&Ox4 and is resting comfortably in bed and is calm. Care providers, pharmacy, and demographics verified. Admitting dx: RUL Pneumonia, CP PCP: GERTRUDE Anderson Specialists: Denies Preferred [facility]acy: [facility] [place]: [place] Prescription Benefit: Yes LNOK: Megan aLwrence (BILLY) Living Arrangements: Pt lives with his 12 y/o GGD in a single story home with a BM with 2 steps to enter ADLs/IADLs: Ind Transportation: Self DME: CPAP @ HS with 2L of O2 bleed through, supplied by the [place]. Pt states that he has a concentrator, 2 portable tanks, and a pulse ox. Pt has a working BGM with enough supplies to check his BS. Cane, FWW, Scooter. Walk in shower with GB and chair. HHC/SNF: States HHC A long long time ago. Denies SNF history or needs Pt?s goal: Home Plan: 6-click is 20. No therapy ordered. Pt denies the need for HHC or OP therapy. Pt states that he wishes to return home once medically ready. CM to follow for safe DC from [facility]. Brendan Marlow RN, CM
[2023-08-08] MEDS: dilTIAZem CD 180 MG Capsule PO (11:28)
[2023-08-08] MEDS: guaiFENesin 1,200 MG Tablet 1200 MG PO ×2 (11:28→21:35)
[2023-08-08] MEDS: Loratadine 10 MG Tablet PO (11:29)
[2023-08-08] MEDS: Cholecalciferol (VIT D3) 25 MCG TABLET (1,000 UNITS) PO (11:29)
[2023-08-08] MEDS: Fluticasone 0.05% 1 SPRAY NASAL.SRY NASAL ×2 (11:29→21:40)
[2023-08-08] MEDS: Lactobacillis Acidophilus 2 CAP PO ×2 (11:29→21:35)
[2023-08-08] MEDS: Insulin Glargine-YFGN 100 UNIT/ML Pen 20 UNIT SC ×2 (11:30→21:48)
--- NOTE | 2023-08-08 16:24 | PCM.PN.HOSP ---
Reason for Visit Reason for Visit: Chest pain/shortness of breath Subjective Subjective Patient is a 73-year-old white male who presented to the emergency department [facility] on 08/07/2023 with chest pain and shortness of breath that started early on the morning of presentation. He awakened and felt pressure-like substernal nonradiating chest pain that nothing made the pain better or worse. He also complained of some nausea with some bilious emesis and some mild shortness of breath and lightheadedness when the pain would intensify. He denies any associated cough, fever, diaphoresis, diarrhea, or constipation. In the emergency department he was noted to have a chest x-ray that showed a right upper lobe infiltrate and it was suspected that he had a community-acquired pneumonia. Vital signs on presentation showed a temperature of 98.5, heart rate 115, blood pressure was 149/64, respiratory rate was 32 and oxygen saturations were 93% on room air but then dropped to 90% and eventually he required some supplemental oxygen at 2 L but this was predominantly through the night. He did have a leukocytosis on presentation of 12.6 and a left shift with an 80.3% neutrophilia. His chemistry panel showed mild hyponatremia with a sodium of 135 and a glucose of 212 but was otherwise unremarkable. He was admitted to PCU as there was concern that this may be cardiac however he had cardiac enzymes that were cycled x 3 and were unremarkable. He also had 2 EKGs that showed no change from previous and went down for stress test however had no chest pain at that time. Cardiology reviewed the information and decided not to proceed with a stress test at this time as they felt this was likely noncardiac after reviewing all the information. Patient reports that he is still having a pressure-like sensation in his chest that is persistent and constant with no exacerbating or relieving factors. His family reports his voice sounds more congested in the fainter than typical. The patient states he really feels no different. I did discuss with him obtaining an echocardiogram as well as a CTA of the chest for further information and assistance with diagnosis as it is not completely clear that he has pneumonia either at this time. He is significantly wheezy on exam. Objective Data Objective Data Vital Signs: Vital Signs Temp Pulse Resp BP Pulse Ox O2 Del Method O2 Flow Rate 98.4 F 93 20 H 116/52 L 93 Room Air 2 08/08/23 14:48 05/07/24 14:48 08/08/23 14:48 08/08/23 14:48 08/08/23 14:48 08/08/23 14:48 08/08/23 08:59 Oxygen Flow Rate (L/min) 2 Oxygen Delivery Method Room Air Weight: 122.3 kg Body Mass Index (BMI) 38.7 Intake & Output: Intake and Output for Last 24 Hours 08/06/23 08/07/23 08/08/23 23:59 23:59 23:59 Intake Total 50 / 50 255 / 255 Output Total 300 / 300 Balance -250 / -250 255 / 255 Lab / Micro Data 08/07/23 18:24 08/07/23 18:24 Labs: Laboratory Results - last 24 hr 08/07/23 18:24: WBC 12.6 H, RBC 4.45 L, Hgb 13.0, Hct 38.5 L, MCV 86.5, MCH 29.2, MCHC 33.8, RDW Std Deviation 42.3, RDW Coeff of Asad 13.5, Plt Count 159, MPV 11.1, Immature Gran % (Auto) 0.600, Neut % (Auto) 80.3 H, Lymph % (Auto) 6.9 L, [place] % (Auto) 11.5 H, Eos % (Auto) 0.2, Baso % (Auto) 0.5, Absolute Neuts (auto) 10.1 H, Absolute Lymphs (auto) 0.87, Nucleated RBC % 0, Sodium 135 L, Potassium 4.1, Chloride 104, Carbon Dioxide 26.0, Anion Gap 5, BUN 18, Creatinine 0.95, Estim Creat Clear Calc 89.35, Est GFR (MDRD) Af Amer 100, Est GFR (MDRD) Non-Af 83, BUN/Creatinine Ratio 19.0, Glucose 212 H, Calcium 8.9, Troponin I High Sens 47 08/07/23 21:26: Troponin I High Sens 47 08/07/23 23:23: POC Glucose 222 H 08/08/23 01:14: Troponin I High Sens 46, Triglycerides 95, Cholesterol 106, LDL Cholesterol 51, VLDL Cholesterol 19, HDL Cholesterol 36 L Micro: Microbiology 08/07/23 23:01 Urine, Clean Catch Streptococcus pneumoniae Antigen (M - Final 08/07/23 23:01 Urine, Clean Catch Legionella Antigen - Final Radiography Diagnostic Testing: Radiology Impression Chest X-Ray 08/07/23 18:30 IMPRESSION: Right upper lobe pneumonia. Cardiomegaly. Electronically Signed: Ilya Wheeler MD at 19:26 EDT , Chest X-Ray 08/08/23 09:30 IMPRESSION: Essentially stable examination. Electronically Signed: Dex Reyes MD at 13:55 EDT , Physical Exam Const alert, oriented x3, no apparent distress and well nourished; Negative for average body habitus or healthy appearing Constitutional Narrative: Obese, older, white male, sitting up in chair at the bedside reclined, family at bedside, patient appears ill but not toxic, currently appears comfortable HEENT head/scalp atraumatic and moist oral mucous membranes HEENT Narrative: Mallampati 3, no thrush Head and Scalp: normocephalic Eyes PERRL, EOMs intact bilaterally and conjunctivae normal Eyes Narrative: No scleral icterus Neck no lymphadenopathy Neck Narrative: Trachea midline, no thyroid enlargement Resp normal respiratory effort, no retractions and no use of accessory muscles Resp Narrative: Diffuse scattered end expiratory and inspiratory wheezes Auscultation: wheezes Cardio regular rate, regular rhythm, S1 normal heart sound, S2 normal heart sound, no murmurs, no rub, no gallops and no clicks GI normal to inspection, nondistended, normoactive bowel sounds, soft to palpation and non-tender Extremity no clubbing, cyanosis or edema Extremity Narrative: Radial and pedal pulses are 2+ bilaterally Skin no rashes or lesions noted, no wounds, skin turgor normal, no jaundice, no petechiae and no mottling Skin Narrative: Skin on legs is dry Neuro oriented x3, moves all extremities and no focal motor deficits Speech: speech normal Psych Psych Narrative: Affect is slightly flat, eye contact is good and patient interacts appropriately Assessment & Plan Assessment/Plan (1) Chest pain: QUALIFIERS: Chest pain type: unspecified Qualified Code(s): R07.9 - Chest pain, unspecified (2) Abnormal chest xray: (3) Leukocytosis: (4) Hyperglycemia: PLAN: Plan Chest pain/shortness of breath -Highly suspect at least a component of COPD exacerbation -EKG without changes from previous -Chest x-ray was suggestive of pneumonia however patient has not had fever, chills, no cough or sputum production -Significant wheezing on exam today will so we will start Solu-Medrol 40 every 8 -Add I-S and Acapella -Continue Mucinex -Continue pulmonary toilet with scheduled DuoNebs and as needed albuterol -Cardiac enzymes without any elevation -Chest discomfort is persistent and not typical for cardiac symptoms -Stress test was canceled by cardiology upon review of patient and current symptoms and data -Check CTA of the chest to rule out PE and get a better idea of what the lung parenchyma look like -Check echocardiogram -Check COVID-19 rapid -Check respiratory viral panel -Sputum culture ordered but not able to produce -Strep pneumo and Legionella antigens are negative -Will discontinue ceftriaxone azithromycin and transition to Levaquin as he has a history of COPD and would be at risk for pseudomonal pneumonia -Check a.m. procalcitonin Leukocytosis -Mild with left shift -Patient without significant signs of pneumonia -Repeat CBC in a.m. 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 -CABG not done at the time of his aortic valve replacement and he would have had a preoperative cardiac catheterization so I suspect he likely had nonobstructive disease -Continue aspirin 81 mg daily -Continue diltiazem 180 mg daily -Continue lisinopril 10 mg daily -Lipids were obtained at the time of admission and lipid panel looks good without statins at baseline PAF -Continue Cardizem -Patient is not on anticoagulation and reason is unknown this was found after meds were verified -Family reports he had previously been on apixaban but patient denies currently being on any anticoagulation -Currently in normal sinus rhythm COPD -Restart home inhalers at discharge -Highly suspect current acute exacerbation DM-2 -Check a.m. hemoglobin A1c -Hold home metformin -Continue home basal insulin -SSI -Accu-Cheks as ordered Seasonal allergies -Continue home loratadine Insomnia -Continue home melatonin History of BPPV -Continue as needed meclizine Osteoarthritis -Previous total knee arthroplasty -As needed Tylenol available VICKI -Continue nocturnal CPAP History of tobacco abuse -Patient quit in 1985 -Does have wheezing on exam -Encourage ongoing cessation Obesity -BMI 35.4 -Recommend weight loss -Complicates treatment, prognosis, outcomes DVT prophylaxis -Lovenox 40 mg daily CODE STATUS Full code verified by me today Charges/Coding Visit Charges Inpatient E&M: 64245 Subs Hosp L3
--- NOTE | 2023-08-08 16:28 | CT_ITS ---
STUDY: CTA CHEST REASON FOR EXAM: Male, 73 years old. chest pain and SOB RADIATION DOSAGE (If Supplied By Facility): CTDIvol = ( 15.04 ) mGy, DLP = ( 470.10 ) mGycm TECHNIQUE: The examination was performed with the intravenous administration of IV 100mL Isovue-370. Post-processing of the angiographic images was performed, with multiplanar reformation and 3D reconstruction. Individualized dose optimization techniques were used for this CT. COMPARISON: Chest radiograph of 08/08/2023 FINDINGS: Tubes and lines: 1. No life-support noted. CTA: PULMONARY ARTERIES: There is normal configuration and contrast opacification of pulmonary outflow tract, main pulmonary arteries, segmental and intersegmental pulmonary arteries bilaterally without evidence of intraluminal filling defects. AORTIC ARCH: The aortic arch and descending aorta have normal configuration. No evidence of dissection or aneurysmal dilatation. HEART: Cardiac contour is normal. No evidence pericardial effusion. Diffuse coronary vascular calcifications are present. CT CHEST: LUNGS: [Extensive areas of alveolar infiltrate and parenchymal density in the posterior basal segment of the RIGHT lower lobe, as well as within the superior segment of the RIGHT lower lobe, perihilar and suprahilar region of the RIGHT upper lobe. Additional atelectasis and pleural thickening at the LEFT base.. . PLEURAL SPACES: Unremarkable, no effusion or pneumothorax.. MEDIASTINUM AND LYMPH NODES: Scattered lymph nodes are present within the mediastinum and hilar regions, largest in the RIGHT hilum measuring approximately 3.2 x 2.2 cm.. BONES: Diffuse thoracic spondylosis, flowing osteophytes are present, no acute bony changes. ABDOMEN: Within normal limits. Other: None IMPRESSIONS: 1. No CTA evidence of pulmonary embolism. 2. No CTA evidence of aortic aneurysm or dissection 3. Normal CT appearance of the heart and pericardium. Diffuse coronary vascular calcifications are present. 4. Extensive areas of perihilar infiltrate/multilobar pneumonia on the RIGHT, as well as atelectasis at the LEFT base. Reactive adenopathy in the RIGHT hilar region. Recommend follow-up to assure complete resolution and exclude underlying were obscured nodules. Electronically Signed: Ilya Proctor MD at 18:03 EDT , CT/CTA Chest W/WO Contrast IMPRESSION: undefined
[2023-08-08] MEDS: 0.9% Normal Saline (250mL Bag) 250 ML 15 ML IV (17:30)
[2023-08-08] MEDS: 0.9% Saline Lock 10 ML Syringe IV (17:31)
[2023-08-08] MEDS: levoFLOXacin IV 750 MG/150 ML BAG 100 MG IV (17:31)
[2023-08-08] MEDS: MELATONIN 10 MG TABLET PO (21:35)
[2023-08-08 23:52] LABS: Bedside Glucose 322 mg/dL (74-106)
[2023-08-09 03:00] VITALS: BP 132/69; PULSE 82; RESP 16; TEMP 36.3; O2SAT 95
[2023-08-09 06:39] LABS: Absolute Lymphocyte Count 0.53 X10^3/uL (0.83-4.51); Absolute Neutrophil Count 5.3 X10^3/uL (2.0-7.7); Basophil# 0.02 X10^3/uL; Basophil% 0.3 % (0-1); Hematocrit 40.3 % (40-54); Hemoglobin 13.6 g/dL (13.0-16.5); Lymphocyte # 0.53 X10^3/ul (0.83-4.51); Lymphocyte % 8.5 % (19-41); Mean Corp Hgb Conc 33.7 g/dL (32-36); Mean Corpuscular Hgb 29.3 pg (27.0-32.0); Mean Corpuscular Volume 86.9 fL (80-94); Mean Platelet Vol. 11.1 fl (6.2-12.0); Monocyte# 0.35 X10^3/uL; Monocyte% 5.6 % (0-10); NRBC Flagged by Analyzer 0 % (0-5); Neutrophil # 5.25 X10^3/uL (2.7-7.7); Neutrophil % 84.6 % (47-70); POSITIVE DIFFERENTIAL YES; Platelet Count 173 K/mm3 (150-450); RBC Distribution Width CV 13.2 % (11.6-14.6); RBC Distribution Width SD 41.9 fl (35.1-43.9); Red Blood Count 4.64 M/mm3 (4.6-6.2); White Blood Count 6.2 K/mm3 (4.4-11.0)
[2023-08-09] MEDS: Ipratropium/Albuterol Sulfate 3 ML AMPUL.NEB INHALATION ×2 (07:05→13:02)
[2023-08-09] MEDS: Budesonide Respules 0.5 MG/2 ML AMPUL.NEB. INHALATION (07:05)
[2023-08-09 07:06] VITALS: PULSE 81; RESP 16; O2SAT 98
[2023-08-09 07:31] LABS: ALB/GLOB Ratio 0.8 RATIO (0.9-2.4); AST(SGOT) 23 U/L (15-37); Alanine Aminotransfer ALT/SGPT 25 U/L (16-61); Albumin, Serum 3.3 g/dL (3.2-5.0); Alkaline Phosphatase 44 U/L (45-117); Anion Gap 6 (5-15); BUN 21 mg/dL (7-18); BUN/Creat Ratio 21.6 RATIO (10-20); Calcium,Total 8.8 mg/dL (8.5-10.1); Chloride 102 mmol/L (98-107); Creatinine, Serum 0.97 mg/dL (0.70-1.30); EST Glomerular Filtration Rate 81 mL/min (>60); Est Glom Filt Rate - Afr Amer 98 mL/min (>60); Estimated Creatinine Clearance 88.95 ml/min; Glucose 310 mg/dL (74-106); Magnesium 2.2 mg/dL (1.6-2.6); Phosphorus 3.4 mg/dL (2.5-4.9); Potassium 4.2 mmol/L (3.5-5.1); Protein, Total 7.3 g/dL (6.4-8.2); Sodium Level 134 mmol/L (136-145); Thyroid Stim Hormone (TSH) 1.34 uIU/mL (0.358-3.74)
[2023-08-09 08:11] LABS: Procalcitonin 0.15 ng/mL (0.00-0.09)
[2023-08-09 08:40] LABS: Hemoglobin A1c 6.5 % (3.8-5.6)
[2023-08-09 09:00] VITALS: BP 129/49; PULSE 90; RESP 18; TEMP 36.6; O2SAT 94
[2023-08-09] MEDS: levoFLOXacin IV 750 MG/150 ML BAG 100 MG IV (09:10)
[2023-08-09] MEDS: 0.9% Saline Lock 10 ML Syringe IV (09:10)
[2023-08-09] MEDS: Aspirin E.C. 81 MG Tablet PO (09:13)
[2023-08-09] MEDS: Vitamin B Comp W-C Capsule 1 CAP PO (09:13)
[2023-08-09] MEDS: Loratadine 10 MG Tablet PO (09:13)
[2023-08-09] MEDS: Lactobacillis Acidophilus 2 CAP PO (09:13)
[2023-08-09] MEDS: dilTIAZem CD 180 MG Capsule PO (09:14)
[2023-08-09] MEDS: guaiFENesin 1,200 MG Tablet 1200 MG PO (09:14)
[2023-08-09] MEDS: Insulin Glargine-YFGN 100 UNIT/ML Pen 20 UNIT SC (09:14)
[2023-08-09] MEDS: Cholecalciferol (VIT D3) 25 MCG TABLET (1,000 UNITS) PO (09:14)
[2023-08-09] MEDS: Fluticasone 0.05% 1 SPRAY NASAL.SRY NASAL (09:14)
[2023-08-09] MEDS: Lisinopril 10 MG Tablet PO (09:14)
[2023-08-09 11:11] VITALS: O2SAT 93; O2SAT 96
[2023-08-09 13:02] VITALS: PULSE 72; RESP 18
--- NOTE | 2023-08-09 14:12 | DS.PCM_ITS ---
Providers Date of Admission: 08/07/23 Primary Care Physician: [facility] Reason For Visit: RIGHT UPPER LOBE PNEUMONIA CHEST PAIN Diagnosis Discharge Diagnosis (1) Chest pain: Status: Acute Code(s): R07.9 - Chest pain, unspecified Qualifiers: Chest pain type: unspecified Qualified Code(s): R07.9 - Chest pain, unspecified (2) Abnormal chest xray: Status: Acute Code(s): R93.89 - Abnormal findings on diagnostic imaging of other specified body structures (3) Leukocytosis: Status: Acute Code(s): D72.829 - Elevated white blood cell count, unspecified (4) Hyperglycemia: Status: Acute Code(s): R73.9 - Hyperglycemia, unspecified Plan Chest pain/shortness of breath -Highly suspect at least a component of COPD exacerbation -EKG without changes from previous -Chest x-ray was suggestive of pneumonia however patient has not had fever, chills, no cough or sputum production -Significant wheezing on exam today will so we will start Solu-Medrol 40 every 8 -Add I-S and Acapella -Continue Mucinex -Continue pulmonary toilet with scheduled DuoNebs and as needed albuterol -Cardiac enzymes without any elevation -Chest discomfort is persistent and not typical for cardiac symptoms -Stress test was canceled by cardiology upon review of patient and current symptoms and data -Check CTA of the chest to rule out PE and get a better idea of what the lung p arenchyma look like -Check echocardiogram -Check COVID-19 rapid -Check respiratory viral panel -Sputum culture ordered but not able to produce -Strep pneumo and Legionella antigens are negative -Will discontinue ceftriaxone azithromycin and transition to Levaquin as he has a history of COPD and would be at risk for pseudomonal pneumonia -Check a.m. procalcitonin Leukocytosis -Mild with left shift -Patient without significant signs of pneumonia -Repeat CBC in a.m. 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 -CABG not done at the time of his aortic valve replacement and he would have had a preoperative cardiac catheterization so I suspect he likely had nonobstructive disease -Continue aspirin 81 mg daily -Continue diltiazem 180 mg daily -Continue lisinopril 10 mg daily -Lipids were obtained at the time of admission and lipid panel looks good without statins at baseline PAF -Continue Cardizem -Patient is not on anticoagulation and reason is unknown this was found after meds were verified -Family reports he had previously been on apixaban but patient denies currently being on any anticoagulation -Currently in normal sinus rhythm COPD -Restart home inhalers at discharge -Highly suspect current acute exacerbation DM-2 -Check a.m. hemoglobin A1c -Hold home metformin -Continue home basal insulin -SSI -Accu-Cheks as ordered Seasonal allergies -Continue home loratadine Insomnia -Continue home melatonin History of BPPV -Continue as needed meclizine Osteoarthritis -Previous total knee arthroplasty -As needed Tylenol available VICKI -Continue nocturnal CPAP History of tobacco abuse -Patient quit in 1985 -Does have wheezing on exam -Encourage ongoing cessation Obesity -BMI 35.4 -Recommend weight loss -Complicates treatment, prognosis, outcomes DVT prophylaxis -Lovenox 40 mg daily CODE STATUS Full code verified by me today Medications at Discharge Home Medications albuterol sulfate 90 mcg/actuation aerosol inhaler 2 puff inhalation Q6H PRN Dyspnea 12/01/21 budesonide 160 mcg-glycopyr 9 mcg-formot 4.8 mcg/actuation HFA inhaler (Breztri Aerosphere) 2 inh inhalation BID 12/01/21 fluticasone propionate 50 mcg/actuation nasal spray,suspension 1 spray intranasal Q12H 12/01/21 loratadine 10 mg tablet 10 mg PO DAILY 12/01/21 acetaminophen 325 mg tablet (Tylenol) 325 mg PO Q8H PRN left shoulder pain 10/15/22 diltiazem HCl 180 mg capsule,extended release 24 hr (Cardizem CD) 180 mg PO DAILY 10/15/22 insulin glargine 100 unit/mL subcutaneous solution (Lantus U-100 Insulin) 30 unit subcut BID 10/15/22 lisinopril 10 mg tablet (Zestril) 10 mg PO DAILY 10/15/22 melatonin 10 mg capsule 10 mg PO QHS 10/15/22 metformin 1,000 mg tablet 1,000 mg PO BID 10/15/22 vitamin B complex (B Complex-Vitamin B12 tablet) 1 tab PO DAILY 10/15/22 aspirin 81 mg tablet,delayed release 81 mg PO DAILY 08/07/23 cholecalciferol (vitamin D3) 25 mcg (1,000 unit) tablet 25 mcg PO DAILY SUPPLEMENT 08/07/23 guaifenesin 1,200 mg tablet, extended release 12 hr (Mucus Relief ER) 1,200 mg PO BID #0 tabs 08/09/23 levofloxacin 750 mg tablet 750 mg PO Q24H #6 tabs 08/09/23 prednisone 10 mg tablet 10 mg PO DAILY #30 tabs 08/09/23 Weight / BMI Weight Weight: 122.3 kg Body Mass Index (BMI) 38.7 ABG / Lab / Microbiology Data 08/09/23 06:00 08/09/23 06:00 Laboratory: Laboratory Results - last 24 hr 08/08/23 21:47: POC Glucose 322 H 08/09/23 06:00: WBC 6.2, RBC 4.64, Hgb 13.6, Hct 40.3, MCV 86.9, MCH 29.3, MCHC 33.7, RDW Std Deviation 41.9, RDW Coeff of Asad 13.2, Plt Count 173, MPV 11.1, Immature Gran % (Auto) 1.000 H, Neut % (Auto) 84.6 H, Lymph % (Auto) 8.5 L, [place] % (Auto) 5.6, Eos % (Auto) 0.0, Baso % (Auto) 0.3, Absolute Neuts (auto) 5.3, Absolute Lymphs (auto) 0.53 L, Nucleated RBC % 0, Sodium 134 L, Potassium 4.2, Chloride 102, Carbon Dioxide 26.0, Anion Gap 6, BUN 21 H, Creatinine 0.97, Estim Creat Clear Calc 88.95, Est GFR (MDRD) Af Amer 98, Est GFR (MDRD) Non-Af 81, BUN/Creatinine Ratio 21.6 H, Glucose 310 H, Hemoglobin A1c 6.5 H, Calcium 8.8, Phosphorus 3.4, Magnesium 2.2, Total Bilirubin 0.50, AST 23, ALT 25, Alkaline Phosphatase 44 L, Total Protein 7.3, Albumin 3.3, Globulin 4.0, Albumin/Globulin Ratio 0.8 L, Procalcitonin 0.15 H, TSH 1.34 Microbiology: Microbiology 08/08/23 22:00 Sputum, Expectorated/Coughed Gram Stain - Final 08/08/23 19:42 Mucosa - Nasopharyngeal Respiratory Panel (PCR) - Final 08/08/23 18:00 Nasal Secretion SARS-CoV-2 Antigen (Rapid) - Final 08/07/23 23:01 Urine, Clean Catch Streptococcus pneumoniae Antigen (M - Fi nal 08/07/23 23:01 Urine, Clean Catch Legionella Antigen - Final Radiography Diagnostic Testing: Radiology Impression Echocardiogram 08/07/23 21:35 Interpretation Summary Normal LV size. The estimated ejection fraction is 53 %. Bioprosthetic aortic valve. Mean aortic valve gradient 30 mmHg. Moderate concentric left ventricular hypertrophy. Ordering Physician: Dreek Molina Performed By: Marietta Jain RDCS Chest CTA 08/08/23 16:28 IMPRESSION: undefined Meaningful Use Info Ischemic Stroke Statin Dosing Therapy Reference: STATIN DOSE THERAPY REFERENCE: * Patients > 75 years receive moderate or high dose statin therapy. * Patients 75 years or YOUNGER should receive HIGH intensity statin dose unless contraindicated. You will be required to document reason for non-treatment if statin daily dose does not meet guidelines. HIGH DOSE STATIN THERAPY DAILY Atorvastatin > than or = to 40 mg Rosuvastatin > than or = to 20 mg Amlodipine + Atorvastatin > than or = to 2.5/40 mg Ezetimibe + Simvastatin 10/80 mg Simvastatin 80mg Discharge Plan Admission Admit Date/Time: 08/07/23 21:29 Primary Reason for Your Visit: Chest pain/shortness of breath Attending Provider: Shira Martinez Primary Care Provider: [facility] Consulting Providers: Derek Molina Instructions Additional Instructions / Restrictions: 1. Please use your nebulizer every 6 hours while awake for the next 5 days and as needed thereafter 2. Please complete antibiotics 3. We did send you home on prednisone which will cause your blood sugars to go up until we can taper you off the medication. Please expect this and do not be surprised if your blood sugars are running higher than typical. They should go back to your normal once we get you off the steroids. Discharge Orders/Prescriptions Prescriptions: New guaifenesin [Mucus Relief ER] 1,200 mg Tablet Extended Release 12hr 1,200 mg PO BID Qty: 0 0RF Rx Instructions: Take for 5 days prednisone 10 mg tablet 10 mg PO DAILY Qty: 30 0RF Rx Instructions: 4 tabs x 3 days, 3 tabs x 3 days, 2 tabs x 3 days and 1 tab x 3 days levofloxacin 750 mg tablet 750 mg PO Q24H Qty: 6 0RF Continued albuterol sulfate 90 mcg/actuation Hfa Aerosol Inhaler 2 puff INHALATION Q6H PRN (Reason: Dyspnea) fluticasone propionate 50 mcg/actuation [place],Suspension 1 spray INTRANASAL Q12H Rx Instructions: administer into each nostril loratadine 10 mg Tablet 10 mg PO DAILY Breztri Aerosphere 160-9-4.8 mcg/actuation Hfa Aerosol Inhaler 2 inh INHALATION BID acetaminophen [Tylenol] 325 mg tablet 325 mg PO Q8H PRN (Reason: left shoulder pain) diltiazem HCl [Cardizem CD] 180 mg capsule,extended release 24hr 180 mg PO DAILY lisinopril [Zestril] 10 mg tablet 10 mg PO DAILY melatonin 10 mg capsule 10 mg PO QHS vitamin B complex [B Complex-Vitamin B12] Tablet 1 tab PO DAILY metformin 1,000 mg tablet 1,000 mg PO BID insulin glargine [Lantus U-100 Insulin] 100 unit/mL solution 30 unit subcut BID cholecalciferol (vitamin D3) 25 mcg (1,000 unit) tablet 25 mcg PO DAILY aspirin 81 mg tablet,delayed release (DR/EC) 81 mg PO DAILY Referrals / Follow [facility] [[facility] - Within 2 Weeks Disposition Disposition (needs filled in before D/C Order can be placed): Home, Self Care Charges/Coding Visit Charges Inpatient E&M: 22672 Disch Hosp >30min
--- NOTE | 2023-08-09 14:12 | PCM.DC.SUM ---
Providers Date of Admission: 08/07/23 Primary Care Physician: [facility] Reason For Visit: RIGHT UPPER LOBE PNEUMONIA CHEST PAIN Diagnosis Discharge Diagnosis (1) Chest pain: Status: Acute Code(s): R07.9 - Chest pain, unspecified Qualifiers: Chest pain type: unspecified Qualified Code(s): R07.9 - Chest pain, unspecified (2) Abnormal chest xray: Status: Acute Code(s): R93.89 - Abnormal findings on diagnostic imaging of other specified body structures (3) Leukocytosis: Status: Acute Code(s): D72.829 - Elevated white blood cell count, unspecified (4) Hyperglycemia: Status: Acute Code(s): R73.9 - Hyperglycemia, unspecified Medications at Discharge Home Medications albuterol sulfate 90 mcg/actuation aerosol inhaler 2 puff inhalation Q6H PRN Dyspnea 12/01/21 budesonide 160 mcg-glycopyr 9 mcg-formot 4.8 mcg/actuation HFA inhaler (Breztri Aerosphere) 2 inh inhalation BID 12/01/21 fluticasone propionate 50 mcg/actuation nasal spray,suspension 1 spray intranasal Q12H 12/01/21 loratadine 10 mg tablet 10 mg PO DAILY 12/01/21 acetaminophen 325 mg tablet (Tylenol) 325 mg PO Q8H PRN left shoulder pain 10/15/22 diltiazem HCl 180 mg capsule,extended release 24 hr (Cardizem CD) 180 mg PO DAILY 10/15/22 insulin glargine 100 unit/mL subcutaneous solution (Lantus U-100 Insulin) 30 unit subcut BID 10/15/22 lisinopril 10 mg tablet (Zestril) 10 mg PO DAILY 10/15/22 melatonin 10 mg capsule 10 mg PO QHS 10/15/22 metformin 1,000 mg tablet 1,000 mg PO BID 10/15/22 vitamin B complex (B Complex-Vitamin B12 tablet) 1 tab PO DAILY 10/15/22 aspirin 81 mg tablet,delayed release 81 mg PO DAILY 08/07/23 cholecalciferol (vitamin D3) 25 mcg (1,000 unit) tablet 25 mcg PO DAILY SUPPLEMENT 08/07/23 guaifenesin 1,200 mg tablet, extended release 12 hr (Mucus Relief ER) 1,200 mg PO BID #0 tabs 08/09/23 levofloxacin 750 mg tablet 750 mg PO Q24H #6 tabs 08/09/23 prednisone 10 mg tablet 10 mg PO DAILY #30 tabs 08/09/23 Hospital Course Procedures 2-D Echocardiogram, EKG and - (Chest x-ray/CTA of the chest) Summary of Care Provided Minutes Spent on Discharge: 40 Hospital Course: Patient is a 73-year-old white male who presented to the emergency department [facility] on 08/07/2023 with chest pain and shortness of breath that started early on the morning of presentation. He awakened and felt pressure-like substernal nonradiating chest pain that nothing made the pain better or worse. He also complained of some nausea with some bilious emesis and some mild shortness of breath and lightheadedness when the pain would intensify. He denies any associated cough, fever, diaphoresis, diarrhea, or constipation. In the emergency department he was noted to have a chest x-ray that showed a right upper lobe infiltrate and it was suspected that he had a community-acquired pneumonia. Vital signs on presentation showed a temperature of 98.5, heart rate 115, blood pressure was 149/64, respiratory rate was 32 and oxygen saturations were 93% on room air but then dropped to 90% and eventually he required some supplemental oxygen at 2 L but this was predominantly through the night. He did have a leukocytosis on presentation of 12.6 and a left shift with an 80.3% neutrophilia. His chemistry panel showed mild hyponatremia with a sodium of 135 and a glucose of 212 but was otherwise unremarkable. He was admitted to PCU as there was concern that this may be cardiac however he had cardiac enzymes that were cycled x 3 and were unremarkable. He also had 2 EKGs that showed no change from previous. He also would have had a cardiac catheterization at the time of his valvular replacement which was not all that long ago and given the fact that he did not have any bypass surgery that is suggestive that he had no significant coronary disease at that time. We did get an echocardiogram which showed a normal EF at 53% with a bioprosthetic aortic valve and a mean aortic valve gradient of 30 mmHg with moderate concentric LVH but no wall motion abnormality was identified. On exam he had significant wheezing so we did obtain a COVID-19 test which was negative and a respiratory viral panel which was negative. We were able to obtain a sputum culture which was pending at the time of discharge. His strep pneumo and Legionella antigens were negative. We did obtain a CTA of his chest which was negative for any pulmonary embolus or aortic dissection but did show bilateral basilar infiltrates. He was placed on Levaquin on 08/08/2023 and by the a.m. of 08/09/2023 he was feeling much better. His wheezing had decreased significantly and the patient indicated he was feeling much better. His leukocytosis had resolved and he was anxious to go home. He was on room air at rest and we did an ambulatory pulse ox and he required no supplemental oxygen with exertion either. Given his significant improvement, we were able to discharge him home on 08/09/2023. He will continue Levaquin for another 6 days and he was placed on a prednisone taper. He was also instructed to use his incentive spirometer and Acapella as well as utilizing his nebulizer at home every 6 hours while awake for the next 5 days and then as needed following that. We did discuss that his blood sugars would be elevated while he was on the prednisone but should resolve back to his baseline once he was off prednisone. I have asked him to follow-up with his primary care physician within the next 2 weeks. Discharge diagnoses: Shortness of breath-resolved Chest pain-resolved Bibasilar pneumonia Leukocytosis-resolved CAD History of aortic valve stenosis status post aortic valve replacement PAF COPD DM-2 Seasonal allergies Insomnia History of BPPV Osteoarthritis VICKI History of tobacco abuse Obesity Physical Exam Const alert, oriented x3, no apparent distress, no limitations and well nourished; Negative for average body habitus Constitutional Narrative: Obese, older, white male, sitting up in chair at the bedside reclining, watching television, appears comfortable, does not appear ill any further and is nontoxic General Appearance: cooperative, comfortable, well kempt and well developed Orientation / Consciousness: awake, oriented to person, oriented to place and oriented to time Exam Limitations: no limitations Nutritional Appearance: obese HEENT normocephalic, head/scalp atraumatic and moist oral mucous membranes HEENT Narrative: Mallampati is 3, no thrush, moderate hearing loss Eyes PERRL, EOMs intact bilaterally and conjunctivae normal Eyes Narrative: No scleral icterus Neck no lymphadenopathy and supple Neck Narrative: Trachea midline, no thyroid enlargement Resp normal respiratory effort, no retractions, no use of accessory muscles and clear to auscultation bilaterally Resp Narrative: Still with some scattered wheezes but overall much improved from yesterday Auscultation: wheezes; Negative for rales or rhonchi Cardio regular rate, regular rhythm, S1 normal heart sound, S2 normal heart sound, no murmurs, no rub, no gallops and no clicks GI normal to inspection, nondistended, normoactive bowel sounds, soft to palpation and non-tender Extremity normal to inspection, full ROM and no clubbing, cyanosis or edema Extremity Narrative: Radial and pedal pulses are 2+ bilaterally Skin no rashes or lesions noted, no wounds, skin turgor normal, no jaundice, no petechiae and no mottling Skin Narrative: Skin on legs is dry Neuro oriented x3, CN's II-XII intact bilaterally, moves all extremities and no focal motor deficits Sensorium / Orientation: awake, alert, oriented to person, oriented to place and oriented to time Speech: speech normal Psych affect normal Psych Narrative: eye contact is good and patient interacts appropriately Weight / BMI Weight Weight: 122.3 kg Body Mass Index (BMI) 38.7 ABG / Lab / Microbiology Data 08/09/23 06:00 08/09/23 06:00 Laboratory: Laboratory Results - last 24 hr 08/08/23 21:47: POC Glucose 322 H 08/09/23 06:00: WBC 6.2, RBC 4.64, Hgb 13.6, Hct 40.3, MCV 86.9, MCH 29.3, MCHC 33.7, RDW Std Deviation 41.9, RDW Coeff of Asad 13.2, Plt Count 173, MPV 11.1, Immature Gran % (Auto) 1.000 H, Neut % (Auto) 84.6 H, Lymph % (Auto) 8.5 L, [place] % (Auto) 5.6, Eos % (Auto) 0.0, Baso % (Auto) 0.3, Absolute Neuts (auto) 5.3, Absolute Lymphs (auto) 0.53 L, Nucleated RBC % 0, Sodium 134 L, Potassium 4.2, Chloride 102, Carbon Dioxide 26.0, Anion Gap 6, BUN 21 H, Creatinine 0.97, Estim Creat Clear Calc 88.95, Est GFR (MDRD) Af Amer 98, Est GFR (MDRD) Non-Af 81, BUN/Creatinine Ratio 21.6 H, Glucose 310 H, Hemoglobin A1c 6.5 H, Calcium 8.8, Phosphorus 3.4, Magnesium 2.2, Total Bilirubin 0.50, AST 23, ALT 25, Alkaline Phosphatase 44 L, Total Protein 7.3, Albumin 3.3, Globulin 4.0, Albumin/Globulin Ratio 0.8 L, Procalcitonin 0.15 H, TSH 1.34 Microbiology: Microbiology 08/08/23 22:00 Sputum, Expectorated/Coughed Gram Stain - Final 08/08/23 19:42 Mucosa - Nasopharyngeal Respiratory Panel (PCR) - Final 08/08/23 18:00 Nasal Secretion SARS-CoV-2 Antigen (Rapid) - Final 08/07/23 23:01 Urine, Clean Catch Streptococcus pneumoniae Antigen (M - Final 08/07/23 23:01 Urine, Clean Catch Legionella Antigen - Final Radiography Diagnostic Testing: Radiology Impression Echocardiogram 08/07/23 21:35 Interpretation Summary Normal LV size. The estimated ejection fraction is 53 %. Bioprosthetic aortic valve. Mean aortic valve gradient 30 mmHg. Moderate concentric left ventricular hypertrophy. Ordering Physician: Derek Molina Performed By: Marietta Jain RDCS Chest CTA 08/08/23 16:28 IMPRESSION: undefined D/C Instructions Discharge Diet: Low fat / Low cholesterol and 1800 Calorie Control Diet Discharge Activity: Return to Normal Activity Meaningful Use Info Meaningful Use Meaningful Use Diagnoses (Choose all that apply): None applicable Ischemic Stroke Statin Dosing Therapy Reference: STATIN DOSE THERAPY REFERENCE: * Patients > 75 years receive moderate or high dose statin therapy. * Patients 75 years or YOUNGER should receive HIGH intensity statin dose unless contraindicated. You will be required to document reason for non-treatment if statin daily dose does not meet guidelines. HIGH DOSE STATIN THERAPY DAILY Atorvastatin > than or = to 40 mg Rosuvastatin > than or = to 20 mg Amlodipine + Atorvastatin > than or = to 2.5/40 mg Ezetimibe + Simvastatin 10/80 mg Simvastatin 80mg Discharge Plan Admission Admit Date/Time: 08/07/23 21:29 Primary Reason for Your Visit: Chest pain/shortness of breath Attending Provider: Shira Martinez Primary Care Provider: [facility] Consulting Providers: Derek Molina Instructions Additional Instructions / Restrictions: 1. Please use your nebulizer every 6 hours while awake for the next 5 days and as needed thereafter 2. Please complete antibiotics 3. We did send you home on prednisone which will cause your blood sugars to go up until we can taper you off the medication. Please expect this and do not be surprised if your blood sugars are running higher than typical. They should go back to your normal once we get you off the steroids. Discharge Orders/Prescriptions Prescriptions: New guaifenesin [Mucus Relief ER] 1,200 mg Tablet Extended Release 12hr 1,200 mg PO BID Qty: 0 0RF Rx Instructions: Take for 5 days prednisone 10 mg tablet 10 mg PO DAILY Qty: 30 0RF Rx Instructions: 4 tabs x 3 days, 3 tabs x 3 days, 2 tabs x 3 days and 1 tab x 3 days levofloxacin 750 mg tablet 750 mg PO Q24H Qty: 6 0RF Continued albuterol sulfate 90 mcg/actuation Hfa Aerosol Inhaler 2 puff INHALATION Q6H PRN (Reason: Dyspnea) fluticasone propionate 50 mcg/actuation [place],Suspension 1 spray INTRANASAL Q12H Rx Instructions: administer into each nostril loratadine 10 mg Tablet 10 mg PO DAILY Breztri Aerosphere 160-9-4.8 mcg/actuation Hfa Aerosol Inhaler 2 inh INHALATION BID acetaminophen [Tylenol] 325 mg tablet 325 mg PO Q8H PRN (Reason: left shoulder pain) diltiazem HCl [Cardizem CD] 180 mg capsule,extended release 24hr 180 mg PO DAILY lisinopril [Zestril] 10 mg tablet 10 mg PO DAILY melatonin 10 mg capsule 10 mg PO QHS vitamin B complex [B Complex-Vitamin B12] Tablet 1 tab PO DAILY metformin 1,000 mg tablet 1,000 mg PO BID insulin glargine [Lantus U-100 Insulin] 100 unit/mL solution 30 unit subcut BID cholecalciferol (vitamin D3) 25 mcg (1,000 unit) tablet 25 mcg PO DAILY aspirin 81 mg tablet,delayed release (DR/EC) 81 mg PO DAILY Referrals / Follow Up: [facility] [Primary Care Provider] - Within 2 Weeks Disposition Disposition (needs filled in before D/C Order can be placed): Home, Self Care Charges/Coding Visit Charges Inpatient E&M: 03309 Disch Hosp >30min
[2023-08-09 14:20] VITALS: BP 130/58; PULSE 84; RESP 18; TEMP 36.5; O2SAT 94
--- NOTE | 2023-08-09 14:48 | PHA.DC_ITS ---
Pharmacy [facility] has performed discharge medication reconciliation and counseling for this patient. 1. GUAIFENESIN 1200MG PO BID 2. LEVOFLOXACIN 750MG PO DAILY X 6 DAYS 3. PREDNISONE 40MG PO DAILY X 3 DAYS, 30MG X 3 DAYS, 20MG X 3 DAYS, 10MG X 3 DAYS The patient's discharge medication list was reviewed for discrepancies and disc repancies were resolved. The patient was counseled on the following discharge medications and changes in medications for homegoing were reviewed. The Reason for Use, instructions for use, and potential side effects were reviewed for all new medications. The patient's questions regarding all of their medications were answered. The patient was able to verbally demonstrate an understanding of their discharge medications. Medications at Discharge Home Medications albuterol sulfate 90 mcg/actuation aerosol inhaler 2 puff inhalation Q6H PRN Dyspnea 12/01/21 budesonide 160 mcg-glycopyr 9 mcg-formot 4.8 mcg/actuation HFA inhaler (Breztri Aerosphere) 2 inh inhalation BID 12/01/21 fluticasone propionate 50 mcg/actuation nasal spray,suspension 1 spray intranasal Q12H 12/01/21 loratadine 10 mg tablet 10 mg PO DAILY 12/01/21 acetaminophen 325 mg tablet (Tylenol) 325 mg PO Q8H PRN left shoulder pain 10/15/22 diltiazem HCl 180 mg capsule,extended release 24 hr (Cardizem CD) 180 mg PO DAILY 10/15/22 insulin glargine 100 unit/mL subcutaneous solution (Lantus U-100 Insulin) 30 unit subcut BID 10/15/22 lisinopril 10 mg tablet (Zestril) 10 mg PO DAILY 10/15/22 melatonin 10 mg capsule 10 mg PO QHS 10/15/22 metformin 1,000 mg tablet 1,000 mg PO BID 10/15/22 vitamin B complex (B Complex-Vitamin B12 tablet) 1 tab PO DAILY 10/15/22 aspirin 81 mg tablet,delayed release 81 mg PO DAILY 08/07/23 cholecalciferol (vitamin D3) 25 mcg (1,000 unit) tablet 25 mcg PO DAILY SUPPLEMENT 08/07/23 guaifenesin 1,200 mg tablet, extended release 12 hr (Mucus Relief ER) 1,200 mg PO BID #0 tabs 08/09/23 levofloxacin 750 mg tablet 750 mg PO Q24H #6 tabs 08/09/23 prednisone 10 mg tablet 10 mg PO DAILY #30 tabs 08/09/23
== END 2023-08-09 15:28 | disposition home or self-care (01) | DRG 194 ==
LOC: ED 21:09 → PCU 21:38
PROVIDERS: Admitting Provider Internal Medicine; Emergency Provider Emergency Medicine; Visit Provider Internal Medicine
DX: J18.9 Pneumonia, unspecified organism (principal); E87.1 Hypo-osmolality and hyponatremia; J44.0 Chronic obstructive pulmonary disease with (acute) lower respiratory infection; J44.1 Chronic obstructive pulmonary disease with (acute) exacerbation; E11.9 Type 2 diabetes mellitus without complications; Z79.4 Long term (current) use of insulin; I48.0 Paroxysmal atrial fibrillation; I10 Essential (primary) hypertension; E78.5 Hyperlipidemia, unspecified; I25.10 Atherosclerotic heart disease of native coronary artery without angina pectoris; G47.33 Obstructive sleep apnea (adult) (pediatric); M19.90 Unspecified osteoarthritis, unspecified site; J30.2 Other seasonal allergic rhinitis; Z68.35 Body mass index [BMI] 35.0-35.9, adult; Z95.2 Presence of prosthetic heart valve; Z79.82 Long term (current) use of aspirin; E66.9 Obesity, unspecified; Z87.891 Personal history of nicotine dependence
CPT/HCPCS: 36415; 71045; 71046; 71275; 80048; 80053; 80061; 82962; 83036; 83735; 84100; 84145; 84443; 84484; 85025; 87070; 87077; 87186; 87205; 87449; 87633; 87811; 93005; 93306; 94640; 94660; 94668; 99285; J7050; Q9967; A4216; J0696

== ENCOUNTER 2023-09-15 15:30 | Inpatient (IN) | payer OTHER, SELFPAY ==
[2023-09-15] VITALS (11 sets, daily range): BP systolic 104–142; BP diastolic 48–86; PULSE 84–120; RESP 18–32; TEMP 36.1–36.9; O2SAT 88–97; BMI 38.9; BMI 38.2
--- NOTE | 2023-09-15 16:01 | EKG12_ITS ---
Test Reason : SOB Blood Pressure : / mmHG Vent. Rate : 109 BPM Atrial Rate : 000 BPM P-R Int : 000 ms QRS Dur : 086 ms QT Int : 342 ms P-R-T Axes : 000 025 063 degrees QTc Int : 460 ms Atrial fibrillation with rapid ventricular response Nonspecific T wave abnormality Abnormal ECG Confirmed by ERICKA YBARRA, EULALIA ([id number]), editor map NGHIA ACEVEDO ([id number]) on 09/18/2023 9:46:06 AM Referred By: GABRIELLA/EARLE Confirmed By:WILBER BARNETT MD
--- NOTE | 2023-09-15 16:03 | EX.ED.DYSGE1 ---
HPI History of Present Illness Chief Complaint: Shortness of Breath Informant: patient Onset/Context/Timing Onset: Weeks Narrative Narrative: Patient presents secondary to shortness of breath. He was admitted to the hospital August 06 through the with upper lobe pneumonia. He states he was discharged on steroids and has since tapered them off. He has had progressive worsening of his shortness of breath since his discharge. He was seen by his doctor at the [facility] 2 days ago and had a chest x-ray. His doctor called him today to tell him he had extra fluid around his lungs. They recommended he come back to the emergency room at the [facility], but patient did not feel that he can make the drive back to [place] and presented to the local emergency room. He reports only occasional chest heaviness. He has not noted a fever. He has had a mild cough but is not bringing anything up. [facility] Medical History (Updated 09/15/23 @ 20:[address] Muriel Garrison MD) Atrial fibrillation COPD exacerbation History of aortic valve stenosis Atherosclerotic heart disease of [place] coronary artery without angina pectoris VICKI on CPAP Obesity (BMI 35.0-39.9 without comorbidity) Aortic valve stenosis Hyperlipidemia, unspecified Type 2 diabetes mellitus without complications Home Medications ?Medication ?Instructions ?Recorded ?Last Taken ?Type albuterol sulfate 90 mcg/actuation 2 puff inhalation Q6H PRN Dyspnea 12/01/21 Unknown History aerosol inhaler budesonide 160 mcg-glycopyr 9 2 inh inhalation BID 12/01/21 08/07/23 History mcg-formot 4.8 mcg/actuation HFA inhaler (Breztri Aerosphere) fluticasone propionate 50 1 spray intranasal Q12H 12/01/21 08/07/23 History mcg/actuation nasal spray,suspension loratadine 10 mg tablet 10 mg PO DAILY 12/01/21 08/07/23 History acetaminophen 325 mg tablet 325 mg PO Q8H PRN left shoulder 10/15/22 08/07/23 History (Tylenol) pain diltiazem HCl 180 mg 180 mg PO DAILY 10/15/22 08/07/23 History capsule,extended release 24 hr (Cardizem CD) insulin glargine 100 unit/mL 30 unit subcut BID 10/15/22 08/07/23 History subcutaneous solution (Lantus U-100 Insulin) lisinopril 10 mg tablet (Zestril) 10 mg PO DAILY 10/15/22 08/07/23 History melatonin 10 mg capsule 10 mg PO QHS 10/15/22 08/07/23 History metformin 1,000 mg tablet 1,000 mg PO BID 10/15/22 08/07/23 History vitamin B complex (B 1 tab PO DAILY 10/15/22 08/07/23 History Complex-Vitamin B12 tablet) aspirin 81 mg tablet,delayed 81 mg PO DAILY 08/07/23 08/07/23 History release cholecalciferol (vitamin D3) 25 25 mcg PO DAILY SUPPLEMENT 08/07/23 08/07/23 History mcg (1,000 unit) tablet guaifenesin 1,200 mg tablet, 1,200 mg PO BID #0 tabs 08/09/23 Unknown Rx extended release 12 hr (Mucus Relief ER) levofloxacin 750 mg tablet 750 mg PO Q24H #6 tabs 08/09/23 Unknown Rx prednisone 10 mg tablet 10 mg PO DAILY #30 tabs 08/09/23 Unknown Rx Allergy/AdvReac Type Severity Reaction Status Date / Time No Known Allergies Allergy Verified 09/15/23 15:30 Surgical History H/O mechanical aortic valve replacement History of prosthetic aortic valve Mechanical heart valve present History of arthroplasty of right knee Social History Smoking Status: Former smoker ROS ROS ED Constitutional Constitutional ED: Denies chills or fever(s) ENT ENT ED: Denies rhinorrhea or sore throat Cardiovascular Cardiovascular: Reports chest pain; Denies palpitations Respiratory/Chest Respiratory/Chest: Reports cough and dyspnea Gastrointestinal Gastrointestinal: Denies abdominal pain, nausea or vomiting Genitourinary Genitourinary ED: Denies dysuria Musculoskeletal Musculoskeletal: Denies back pain or extremity pain Integumentary Denies Abrasions or rash Neurologic Neurologic: Reports weakness; Denies headache(s) Psychiatric Psychiatric: Denies anxiety or depression Allergic/Immunologic Allergic/Immunologic ED: Denies lip swelling or urticaria EXAM Physical Exam Const Vital Signs: 09/15/23 15:31 09/15/23 15:33 09/15/23 15:44 Temperature 97.2 F L 97.4 F L Temperature Source Temporal Temporal Pulse Rate 84 120 H Respiratory Rate 26 H 26 H Respiratory Effort Short of Breath Respiratory Depth Shallow Respiratory Pattern Tachypnea Blood Pressure 116/74 116/74 Blood Pressure Mean 88 88 Pulse Ox 89 89 Oxygen Delivery Method Room Air Room Air Room Air Oxygen Flow Rate (L/min) 09/15/23 15:47 09/15/23 16:30 09/15/23 16:30 Temperature 97.8 F 97.8 F Temperature Source Temporal Temporal Pulse Rate 106 H 106 H Respiratory Rate 28 H 28 H Respiratory Effort Respiratory Depth Respiratory Pattern Blood Pressure 104/48 L 104/48 L Blood Pressure Mean 66 64 Pulse Ox 88 94 94 Oxygen Delivery Method Room Air Nasal Cannula Nasal Cannula Oxygen Flow Rate (L/min) 2 2 09/15/23 17:30 09/15/23 18:35 09/15/23 19:29 Temperature 98.4 F 98.2 F 97.6 F L Temperature Source Oral Oral Temporal Pulse Rate 109 H 113 H 94 Respiratory Rate 29 H 27 H 32 H Respiratory Effort Respiratory Depth Respiratory Pattern Blood Pressure 122/53 H 137/65 H 115/86 H Blood Pressure Mean 76 86 95 Pulse Ox 96 92 96 Oxygen Delivery Method Nasal Cannula Nasal Cannula Nasal Cannula Oxygen Flow Rate (L/min) 2 2 3 Positive well nourished and well developed General Appearance ED: well developed HEENT Reports moist mucous membranes Eyes EOMs intact bilaterally Chest Wall inspection of chest normal and palpation of chest normal Resp normal respiratory effort Resp Narrative: Diminished breath sounds bilateral bases. GI non-tender Palpation: soft Extremity Extremity Narrative: 3+ bilateral lower extremity edema, symmetric. Neuro oriented x3 Neuro Narrative: No focal neurologic deficit. Psych mental status grossly normal Skin no rashes or lesions noted MDM MDM MDM Narrative Medical decision making narrative: Patient was on traffic monitor specialist. IV line initiated. Labwork obtained to evaluate for leukocytosis, anemia, and electrolyte derangement. Chest x-ray obtained to evaluate for acute lung pathology, cardiac size, or mediastinal abnormality. EKG obtained to evaluate for cardiac arrhythmia/ischemia. Swab for COVID, influenza, and RSV will be obtained. History & Record Review Discussion w/independent historian: Patient Additional record(s) reviewed:: Prior inpatient record, Prior ED visit and Prior labs Lab Data Attestation: I reviewed the patient's lab results. Labs: Laboratory Results - last 24 hr 09/15/23 16:25 WBC 10.7 RBC 3.87 L Hgb 11.0 L Hct 34.7 L MCV 89.7 MCH 28.4 MCHC 31.7 L RDW Std Deviation 45.0 H RDW Coeff of [place] 13.8 Plt Count 261 MPV 10.4 Immature Gran % (Auto) 0.600 Neut % (Auto) 78.7 H Lymph % (Auto) 9.4 L [place] % (Auto) 9.9 Eos % (Auto) 0.9 Baso % (Auto) 0.5 Absolute Neuts (auto) 8.4 H Absolute Lymphs (auto) 1.00 Nucleated RBC % 0 PT 16.6 H INR 1.3 Sodium 141 Potassium 4.6 Chloride 106 Carbon Dioxide 27.0 Anion Gap 8 BUN 29 H Creatinine 1.20 Estim Creat Clear Calc 72.12 Est GFR (MDRD) Af Amer 76 Est GFR (MDRD) Non-Af 63 BUN/Creatinine Ratio 24.2 H Glucose 242 H Lactic Acid 1.4 Calcium 9.1 Troponin I High Sens 39 B-Natriuretic Peptide 182.2 H Radiography Chest X-Ray - ED: 1 View, Read by ED Physician, Chronic Changes, Right Effusion and Left Effusion Diagnostic Testing: Clinical Impression(s) from Imaging Studies Chest X-Ray 09/15/23 16:26 IMPRESSION: Findings consistent with congestive failure with atelectasis or infiltrate and pleural effusions in both lower lung brown. Findings are significantly worse than prior exam. Electronically Signed: Cecilio Morales MD at 16:39 EDT Reading Location ID and State: [facility] / [place] , Service support , Chest CTA 09/15/23 17:08 IMPRESSION: 1. Significant bilateral pleural effusions worse on the left and worse than prior exam. 2. Significant atelectasis of both lower lobes. Pneumonia cannot be excluded. 3. Possible mild diffuse pulmonary edema 4. Cardiomegaly. Electronically Signed: Cecilio Morales MD at 17:55 EDT , EKG Initial EKG: Attestation: I personally reviewed and interpreted this EKG as follows: Interpretation: Atrial Fibrillation (A-fib with a ventricular rate of 109. Nonspecific lateral ST depression of approximate 1 mm.) Treatment and Re-Evaluation :: CBC was a white count of 10.7 with 70% neutrophils. Hemoglobin is 11.0. INR is 1.3, although patient states that he is on warfarin. Chemistry studies reveal a BUN of 29 and creatinine 1.20. Troponin is normal at 39. BNP is slightly elevated at 182. Portable chest x-ray reveals chronic changes with bilateral pleural effusions per my interpretation. Radiology read indicates possible congestive heart failure with atelectasis or infiltrate and pleural effusions of the both lung bases. CTA of the chest is also obtained that reveals significant bilateral pleural effusions worse on the left and worse since prior exam. Atelectasis of both lower lobes is noted. Pneumonia cannot be excluded. Possible mild pulmonary edema. Patient is given 40 mg of IV Lasix. He has had good urine output with this. O2 sats are currently in the mid 90s on 3 L nasal cannula. Patient is currently speaking full sentences, but still has a respiratory rate in the high 20s to low 30s. Test results were discussed with him and I did recommend hospitalization. He understands that ultrasound-guided thoracentesis would not be available until Monday. [facility] the [facility] could [facility] with his private insurance and is to follow-up with them on discharge. Discharge Plan Triage Chief Complaint: Shortness of Breath ED Provider: Muriel Garrison Dx/Rx/DC Orders Clinical Impression: Pleural effusion, bilateral, CHF (congestive heart failure), Hypoxia Prescriptions: No Action albuterol sulfate 90 mcg/actuation Hfa Aerosol Inhaler 2 puff INHALATION Q6H PRN (Reason: Dyspnea) fluticasone propionate 50 mcg/actuation [place],Suspension 1 spray INTRANASAL Q12H Rx Instructions: administer into each nostril loratadine 10 mg Tablet 10 mg PO DAILY Breztri Aerosphere 160-9-4.8 mcg/actuation Hfa Aerosol Inhaler 2 inh INHALATION BID acetaminophen [Tylenol] 325 mg tablet 325 mg PO Q8H PRN (Reason: left shoulder pain) diltiazem HCl [Cardizem CD] 180 mg capsule,extended release 24hr 180 mg PO DAILY lisinopril [Zestril] 10 mg tablet 10 mg PO DAILY melatonin 10 mg capsule 10 mg PO QHS vitamin B complex [B Complex-Vitamin B12] Tablet 1 tab PO DAILY metformin 1,000 mg tablet 1,000 mg PO BID insulin glargine [Lantus U-100 Insulin] 100 unit/mL solution 30 unit subcut BID cholecalciferol (vitamin D3) 25 mcg (1,000 unit) tablet 25 mcg PO DAILY aspirin 81 mg tablet,delayed release (DR/EC) 81 mg PO DAILY guaifenesin [Mucus Relief ER] 1,200 mg Tablet Extended Release 12hr 1,200 mg PO BID Qty: 0 0RF Rx Instructions: Take for 5 days prednisone 10 mg tablet 10 mg PO DAILY Qty: 30 0RF Rx Instructions: 4 tabs x 3 days, 3 tabs x 3 days, 2 tabs x 3 days and 1 tab x 3 days levofloxacin 750 mg tablet 750 mg PO Q24H Qty: 6 0RF [facility]: [facility] [[facility] Provider] - Print Language: Frisian Disposition Disposition: Acute Care Hospital [facility]
--- NOTE | 2023-09-15 16:26 | RAD_ITS ---
STUDY: X-RAY CHEST REASON FOR EXAM: Male, 73 years old. sob TECHNIQUE: Single AP portable view of the chest. COMPARISON: 08/08/2023. FINDINGS: There is diffuse hazy density and prominence of the bronchovascular markings in both lungs, most consistent with congestive failure and pulmonary edema. Atelectasis or infiltrate and small pleural effusions in both lung bases, left worse than right and significantly worse than prior study. Moderate cardiomegaly. Previous CABG. RAD/Chest 1 View (Portable) IMPRESSION: Findings consistent with congestive failure with atelectasis or infiltrate and pleural effusions in both lower lung brown. Findings are significantly worse than prior exam. Electronically Signed: Cecilio Morales MD at 16:39 EDT ,
[2023-09-15 16:47] LABS: Absolute Neutrophil Count 8.4 X10^3/uL (2.0-7.7); Basophil# 0.05 X10^3/uL; Basophil% 0.5 % (0-1); Eosinophils% 0.9 % (0-5); Hematocrit 34.7 % (40-54); Lymphocyte % 9.4 % (19-41); Mean Corp Hgb Conc 31.7 g/dL (32-36); Mean Corpuscular Hgb 28.4 pg (27.0-32.0); Mean Corpuscular Volume 89.7 fL (80-94); Mean Platelet Vol. 10.4 fl (6.2-12.0); Monocyte# 1.06 X10^3/uL; Monocyte% 9.9 % (0-10); NRBC Flagged by Analyzer 0 % (0-5); Neutrophil # 8.39 X10^3/uL (2.7-7.7); Neutrophil % 78.7 % (47-70); Platelet Count 261 K/mm3 (150-450); RBC Distribution Width CV 13.8 % (11.6-14.6); Red Blood Count 3.87 M/mm3 (4.6-6.2); White Blood Count 10.7 K/mm3 (4.4-11.0)
[2023-09-15 16:56] LABS: International Normalized Ratio 1.3; Prothrombin Time (Protime)PT. 16.6 SECONDS (11.7-14.9)
[2023-09-15 17:05] LABS: Anion Gap 8 (5-15); BUN 29 mg/dL (7-18); BUN/Creat Ratio 24.2 RATIO (10-20); Calcium,Total 9.1 mg/dL (8.5-10.1); Chloride 106 mmol/L (98-107); EST Glomerular Filtration Rate 63 mL/min (>60); Est Glom Filt Rate - Afr Amer 76 mL/min (>60); Estimated Creatinine Clearance 72.12 ml/min; Glucose 242 mg/dL (74-106); Potassium 4.6 mmol/L (3.5-5.1); Sodium Level 141 mmol/L (136-145); Troponin-I HS 39 pg/mL (3.0-78.0)
[2023-09-15 17:06] LABS: BNP,B-Type NATRIURETIC PEPTIDE 182.2 pg/mL (0-100)
--- NOTE | 2023-09-15 17:08 | CT_ITS ---
EXAM: CT ANGIOGRAPHY CHEST WITHOUT AND WITH INTRAVENOUS CONTRAST CLINICAL INDICATION: hypoxia TECHNIQUE: Helically acquired angiography images were obtained of the chest without and with intravenous contrast. This CT exam was performed using one or more of the following dose reduction techniques: automated exposure control, adjustment of the mA and/or kV according to patient size, and/or use of iterative reconstruction technique. MIP reconstructed images were created and reviewed. CONTRAST: IV 100mL [id number] RADIATION DOSE: CTDIvol = 40.85 mGy, DLP = 726.64 mGy-cm COMPARISON: 08/08/2023 FINDINGS: PULMONARY ARTERIES: Unremarkable. Normal in caliber. No evidence of pulmonary embolism. AORTA: Calcified plaque. Normal in caliber. No evidence of dissection. GREAT VESSELS OF AORTIC ARCH: Unremarkable. Normal in caliber. No evidence of dissection. LUNGS AND PLEURAL SPACES: Probable underlying COPD. Small right pleural effusion with moderate compressive atelectasis of the right lower lobe. Small to moderate left pleural effusion with near complete compressive atelectasis of the left lower lobe. Infiltrates are not excluded in the areas of atelectasis. Mild hazy density throughout both aerated lungs suggestive of mild pulmonary edema. No pneumothorax. HEART: Moderate cardiomegaly. Previous CABG. Prosthetic aortic valve in grossly satisfactory position. Prominent coronary artery calcifications. No pericardial effusion. MEDIASTINUM: Unremarkable. No mediastinal or hilar adenopathy. Esophagus is unremarkable. No hiatal hernia. THYROID: Unremarkable. No thyroid lesions. BONES/JOINTS: Degenerative changes throughout the spine. No suspicious lytic or blastic abnormality. CT/CTA Chest W/WO Contrast IMPRESSION: 1. Significant bilateral pleural effusions worse on the left and worse than prior exam. 2. Significant atelectasis of both lower lobes. Pneumonia cannot be excluded. 3. Possible mild diffuse pulmonary edema 4. Cardiomegaly. Electronically Signed: Cecilio Morales MD at 17:55 EDT ,
[2023-09-15 17:09] LABS: Lactic Acid 1.4 mmol/L (0.4-1.9)
[2023-09-15] MEDS: Furosemide 40 MG/4 ML Vial IV ×2 (18:09→23:15)
--- NOTE | 2023-09-15 18:13 | NURSING ---
CALLED [facility], TALKED TO NACHO. WILL FAX CHART
--- NOTE | 2023-09-15 19:46 | NURSING ---
[facility] TO GET UPDATE ON [facility]. HAD TO LEAVE A VM FOR THE NURSE TO CALL BACK.
--- NOTE | 2023-09-15 19:52 | NURSING ---
[facility] CALLED BACK AT 1951 AND SAID SINCE PATIENT HAS PRIVATE INSURANCE HE IS ALLOWED TO CHOOSE WHERE HE WANTED TO BE PLACED. I INFORMED THEM PATIENT WANTED TO STAY AT [facility] AND THEY SAID THAT'S FINE AND TO HAVE PT FOLLOW UP ONCE HE IS DISCHARGED.
--- NOTE | 2023-09-15 20:05 | PCM.HP.STD ---
HPI - General General Date of Admission: 09/15/23 Date of Service: 09/15/23 Chief Complaint: Worsening shortness of breath with exertion HPI Narrative MANJU SANCHEZ, is a 73 M who presented to [facility] ED on 09/15/2023 with worsening shortness of breath with exertion. Saw patient at bedside in the ED. Patient was sitting up comfortably in bed, conversing normally, in no acute distress. He was breathing comfortably on 2 L nasal cannula at rest with oxygen saturations in the low to mid 90s. Patient was hospitalized here in early August for chest pain and shortness of breath. He was found to have a pneumonia that was treated with antibiotics with improvement. There was initially concern for a cardiac etiology but initial workup was negative. Echo showed an EF of 53%, moderate concentric LV hypertrophy and borderline global hypokinesis of the left ventricle. Stress test was initially ordered but then canceled by cardiology. Patient was discharged home after a 3-day hospital stay in stable condition. States today that since then he has progressively become more short of breath with exertion. [facility] this worsening shortness of breath and had a chest x-ray done and was found to have volume overload, so his PCP recommended he go to the hospital for further evaluation. He decided to come to [facility] because it was closer and he was managed here in the past. He currently denies any chest pain but does report chest tightness especially with exertion. He reports a mild productive cough with whitish sputum. Does report mild to moderate lower extremity edema that has been worsening over the past few weeks. He otherwise denies any fevers or chills. He lives at home and is able to do everything around the house for himself without issue. No other acute concerns at this time. Vitals in ED notable for A-fib in the 100s to 110s (has known history of A-fib), oxygen saturations in the low to mid 90s on 2 L nasal cannula at rest, otherwise unremarkable. Labs notable for hemoglobin 11.0 (baseline around 13), WBC count 10.7, INR 1.3, creatinine 1.20 (baseline around 1.0), glucose 242. BNP 182. Troponin negative. EKG showed A-fib, nonspecific ST changes. Chest x-ray with findings consistent with congestive heart failure with bilateral pleural effusions and pulmonary edema. CTA chest with no PE but with significant bilateral pleural effusions worse on the left, significant atelectasis of both lower lobes, mild diffuse pulmonary edema and cardiomegaly. [facility] Medical History (Updated 09/15/23 @ 21:09 by Daija Cordova) Atrial fibrillation COPD exacerbation History of aortic valve stenosis Atherosclerotic heart disease of [place] coronary artery without angina pectoris VICKI on CPAP Obesity (BMI 35.0-39.9 without comorbidity) Aortic valve stenosis Hyperlipidemia, unspecified Type 2 diabetes mellitus without complications Home Medications ?Medication ?Instructions ?Recorded ?Last Taken ?Type albuterol sulfate 90 mcg/actuation 2 puff inhalation Q6H PRN Dyspnea 12/01/21 Unknown History aerosol inhaler budesonide 160 mcg-glycopyr 9 2 inh inhalation BID shortness of 12/01/21 09/15/23 06:13 History mcg-formot 4.8 mcg/actuation HFA breath inhaler ([employer]) fluticasone propionate 50 1 spray intranasal Q12H congestion 12/01/21 09/15/23 06:12 History mcg/actuation nasal spray,suspension loratadine 10 mg tablet 10 mg PO DAILY allergies 12/01/21 09/15/23 06:14 History acetaminophen 325 mg tablet 325 mg PO Q8H PRN left shoulder 10/15/22 08/07/23 History (Tylenol) pain diltiazem HCl 180 mg 180 mg PO DAILY heart health 10/15/22 09/15/23 06:13 History capsule,extended release 24 hr (Cardizem CD) insulin glargine 100 unit/mL 30 unit subcut BID DM II 10/15/22 09/15/23 06:12 History subcutaneous solution (Lantus U-100 Insulin) lisinopril 10 mg tablet (Zestril) 10 mg PO DAILY blood pressure 10/15/22 09/15/23 06:14 History melatonin 10 mg capsule 10 mg PO QHS sleep 10/15/22 09/14/23 18:00 History metformin 1,000 mg tablet 1,000 mg PO BID DM II 10/15/22 09/15/23 06:00 History vitamin B complex (B 1 tab PO DAILY supplement 10/15/22 09/15/23 06:00 History Complex-Vitamin B12 tablet) aspirin 81 mg tablet,delayed 81 mg PO DAILY heart health 08/07/23 09/15/23 06:13 History release cholecalciferol (vitamin D3) 25 25 mcg PO DAILY SUPPLEMENT 08/07/23 09/15/23 06:13 History mcg (1,000 unit) tablet guaifenesin 1,200 mg tablet, 1,200 mg PO BID #0 tabs 08/09/23 09/15/23 06:12 Rx extended release 12 hr (Mucus Relief ER) levofloxacin 750 mg tablet 750 mg PO Q24H #6 tabs 08/09/23 09/15/23 06:00 Rx Allergy/AdvReac Type Severity Reaction Status Date / Time No Known Allergies Allergy Verified 09/15/23 15:30 Surgical History (Updated 09/15/23 @ 21:09 by Daija Cordova) H/O mechanical aortic valve replacement History of prosthetic aortic valve Mechanical heart valve present History of arthroplasty of right knee Social History Smoking Status: Former smoker ROS Constitutional Constitutional: Denies chills, fatigue, fever(s) or weakness Cardiovascular Cardiovascular: Reports dyspnea on exertion, edema and orthopnea; Denies chest pain, lightheadedness, palpitations or syncope Respiratory/Chest Respiratory/Chest: Reports cough; Denies shortness of breath at rest or wheezing Gastrointestinal Gastrointestinal: Denies abdominal pain Genitourinary Genitourinary: Denies dysuria Neurologic Neurologic: Denies dizziness, focal weakness or headache(s) Vital Signs Vital Signs Vital Signs: 09/15/23 15:31 09/15/23 15:33 09/15/23 15:44 Temperature 97.2 F L 97.4 F L Temperature Source Temporal Temporal Pulse Rate 84 120 H Respiratory Rate 26 H 26 H Respiratory Effort Short of Breath Respiratory Depth Shallow Respiratory Pattern Tachypnea Blood Pressure 116/74 116/74 Blood Pressure Mean 88 88 Pulse Ox 89 89 Oxygen Delivery Method Room Air Room Air Room Air Oxygen Flow Rate (L/min) 09/15/23 15:47 09/15/23 16:30 09/15/23 16:30 Temperature 97.8 F 97.8 F Temperature Source Temporal Temporal Pulse Rate 106 H 106 H Respiratory Rate 28 H 28 H Respiratory Effort Respiratory Depth Respiratory Pattern Blood Pressure 104/48 L 104/48 L Blood Pressure Mean 66 64 Pulse Ox 88 94 94 Oxygen Delivery Method Room Air Nasal Cannula Nasal Cannula Oxygen Flow Rate (L/min) 2 2 09/15/23 17:30 09/15/23 18:35 09/15/23 19:29 Temperature 98.4 F 98.2 F 97.6 F L Temperature Source Oral Oral Temporal Pulse Rate 109 H 113 H 94 Respiratory Rate 29 H 27 H 32 H Respiratory Effort Respiratory Depth Respiratory Pattern Blood Pressure 122/53 H 137/65 H 115/86 H Blood Pressure Mean 76 86 95 Pulse Ox 96 92 96 Oxygen Delivery Method Nasal Cannula Nasal Cannula Nasal Cannula Oxygen Flow Rate (L/min) 2 2 3 Weight Weight: 123 kg Body Mass Index (BMI) 38.9 Physical Exam Const alert, oriented x3 and no apparent distress Constitutional Narrative: Pleasant elderly male, obese, sitting up comfortably in bed, conversing normally, in no acute distress. General Appearance: cooperative and comfortable HEENT normocephalic, head/scalp atraumatic, hearing grossly normal bilaterally, nasal mucous membranes and turbinates normal and moist oral mucous membranes Eyes PERRL, EOMs intact bilaterally and conjunctivae normal Neck full ROM Neck Narrative: Difficult to determine if JVD present due to body habitus. Chest inspection of chest normal Resp normal respiratory effort and no use of accessory muscles Resp Narrative: Moderately decreased breath sounds in bilateral lung bases with mild crackles noted throughout. No wheezing noted. Breathing comfortably on 2 L nasal cannula at rest with good oxygen saturations. Cardio no murmurs and peripheral pulses 2+ throughout Cardio Narrative: A-fib, rate controlled. GI normal to inspection, nondistended, normoactive bowel sounds, soft to palpation, non-tender and non-distended Back/Spine normal ROM Extremity full ROM Extremity Narrative: +2-3 lower extremity pitting edema bilaterally. Skin no rashes or lesions noted Neuro moves all extremities and no focal motor deficits Speech: speech normal Psych mental status grossly normal Results Lab / Micro Data 09/15/23 16:25 09/15/23 16:25 Labs: Laboratory Results - last 24 hr 09/15/23 16:25: WBC 10.7, RBC 3.87 L, Hgb 11.0 L, Hct 34.7 L, MCV 89.7, MCH 28.4, MCHC 31.7 L, RDW Std Deviation 45.0 H, RDW Coeff of Asad 13.8, Plt Count 261, MPV 10.4, Immature Gran % (Auto) 0.600, Neut % (Auto) 78.7 H, Lymph % (Auto) 9.4 L, [place] % (Auto) 9.9, Eos % (Auto) 0.9, Baso % (Auto) 0.5, Absolute Neuts (auto) 8.4 H, Absolute Lymphs (auto) 1.00, Nucleated RBC % 0, PT 16.6 H, INR 1.3, Sodium 141, Potassium 4.6, Chloride 106, Carbon Dioxide 27.0, Anion Gap 8, BUN 29 H, Creatinine 1.20, Estim Creat Clear Calc 72.12, Est GFR (MDRD) Af Amer 76, Est GFR (MDRD) Non-Af 63, BUN/Creatinine Ratio 24.2 H, Glucose 242 H, Lactic Acid 1.4, Calcium 9.1, Troponin I High Sens 39, B-Natriuretic Peptide 182.2 H Micro: Microbiology 09/15/23 16:25 Mucosa - Nose SARS-CoV-2, Influenza & RSV (PCR) - Final Imaging Radiology Impression Chest X-Ray 09/15/23 16:26 IMPRESSION: Findings consistent with congestive failure with atelectasis or infiltrate and pleural effusions in both lower lung brown. Findings are significantly worse than prior exam. Electronically Signed: Cecilio Morales MD at 16:39 EDT , Chest CTA 09/15/23 17:08 IMPRESSION: 1. Significant bilateral pleural effusions worse on the left and worse than prior exam. 2. Significant atelectasis of both lower lobes. Pneumonia cannot be excluded. 3. Possible mild diffuse pulmonary edema 4. Cardiomegaly. Electronically Signed: Cecilio Morales MD at 17:55 EDT , Assessment & Plan Assessment/Plan (1) CHF (congestive heart failure): (2) Hypoxia: (3) Pleural effusion, bilateral: PLAN: Plan Patient is a 73-year-old male who presented [facility] ED on 09/15/2023 with worsening shortness of breath on exertion. 1. CHF exacerbation with bilateral pleural effusions and mild hypoxia, history of aortic valve stenosis s/p aortic valve replacement ? Admit under inpatient status to PCU. Cardiology consulted. Recent echo on 08/06 showed EF 53%, moderate concentric LV hypertrophy, borderline global hypokinesis of the left ventricle, mildly enlarged LA, bioprosthetic aortic valve with peak aortic valve gradient of 44 mmHg and mean gradient of 30 mmHg. Cardiac workup was negative during that admission, stress test was canceled by cardiology. Not on home diuretic. Have concern that worsening heart failure may be secondary to dysfunction of his bioprosthetic aortic valve given elevated aortic valve gradients noted on recent echo. Repeat echo ordered. Has had good diuresis with 2 doses of IV Lasix thus far, will start IV Lasix 40 mg twice daily for now. Monitor daily BMP and urine output. 2. Mild creatinine elevation ? Creatinine 1.20 on admit, baseline around 1.0. Presumed prerenal etiology from mild degree of cardiorenal syndrome in setting of CHF exacerbation. Treated with IV Lasix as noted above. Monitor daily BMP and urine output. 3. Type 2 diabetes mellitus with hyperglycemia ? Home regimen of Lantus 30 units twice daily and metformin 1000 mg twice daily. Blood glucose 242 on admit. Most recent A1c 6.5% in August. Will start Lantus 20 units twice daily and Humalog 7 units with meals plus sliding scale insulin. Adjust as needed. 4. Mild anemia ? Hemoglobin 11.0 on admit, baseline appears to be around 13. Suspect mild decreased from baseline may be due to hemodilution from hypervolemia in setting of CHF exacerbation. Follow-up a.m. CBC. Chronic medical conditions: ? Obesity: BMI 38 on admit. Complicates hospital course, care and prognosis. ? VICKI: Continue nocturnal CPAP. ? Paroxysmal A-fib: In A-fib with rate around 100 on admit. Continue home diltiazem. Not on anticoagulation; on recent previous admission, was reported that he was previously on apixaban but is now not on anticoagulation for unclear reasons. ? History of nonobstructive CAD, hypertension: Continue home aspirin and lisinopril. Notably had lipid panel done on previous admission with good lipid control not on statin medication. ? COPD: Not in acute exacerbation. Continue home inhalers. ? Seasonal allergies: Continue home loratadine. ? Insomnia: Continue home melatonin. ? Osteoarthritis with history of total knee arthroplasty: Continue Tylenol as needed. ? Former tobacco abuse: Encouraged continued cessation. DVT prophylaxis: Lovenox CODE STATUS: Full code, verified Expected disposition: Home, TBD Total clinical time spent by myself addressing the patient's medical issues, reviewing all the data, and collaborating with patient's care team: 75 minutes. Charges/Coding Visit Charges Inpatient E&M: 91285 Init Hosp L3
[2023-09-15] MEDS: Fluticasone 0.05% 1 SPRAY NASAL.SRY NASAL (23:15)
[2023-09-15] MEDS: Insulin Glargine-YFGN 100 UNIT/ML Pen 20 UNIT SC (23:16)
[2023-09-15] MEDS: MELATONIN 10 MG TABLET PO (23:18)
[2023-09-15] MEDS: guaiFENesin 1,200 MG Tablet 1200 MG PO (23:18)
[2023-09-15 23:44] LABS: Bedside Glucose 110 mg/dL (74-106)
[2023-09-16] VITALS (10 sets, daily range): BP systolic 91–119; BP diastolic 46–66; PULSE 85–99; RESP 16–20; TEMP 36.5–37.1; O2SAT 87–97; BMI 38.2
--- NOTE | 2023-09-16 01:24 | ECHOLC_ITS ---
Reason For Study: CHF Procedure This was a limited 2D transthoracic echocardiogram. Contrast injection was performed. Exam performed portable in patient room. Left Ventricle Normal LV size. The estimated ejection fraction is 55 %. Unable to assess diastolic dysfunction. Mild anteroseptal hypokinesis. Right Ventricle Normal RV size. Normal systolic function. Atria The left atrium is mildly enlarged. Normal right atrium. No doppler evidence for ASD. Mitral Valve There is no mitral valve stenosis. Mild (1+) mitral valve insufficiency. Tricuspid Valve There is no tricuspid stenosis. Mild tricuspid valve insufficiency. Pulmonary artery systolic pressure is 45 mmHg. Aortic Valve There is no aortic stenosis. Mild-Moderate (1-2+) aortic valve insufficiency. Bioprosthetic aortic valve. Pulmonic Valve There is no pulmonic valvular stenosis. No pulmonic valve insufficiency. Great Vessels Normal aortic root. Pericardium/Pleural No pericardial effusion. Medication Diluted definity 1.5ml given slow IV push to enhance endocardial definition. MMode/2D Measurements & Calculations LVIDd: 5.1 cm IVSd: 1.2 cm LVIDs: 4.0 cm LVPWd: 1.2 cm LVAd ap4: 43.3 cm2 FS: 21.6 % LVLd ap4: 9.3 cm EDV(MOD-sp4): 163.7 ml EDV(sp4-el): 171.3 ml LVAs ap4: 28.3 cm2 LVLs ap4: 8.5 cm ESV(MOD-sp4): 78.3 ml ESV(sp4-el): 79.9 ml EF(MOD-sp4): 52.1 % EF(sp4-el): 53.3 % SV(MOD-sp4): 85.3 ml SV(sp4-el): 91.4 ml Doppler Measurements & Calculations TR max evelyn: 308.0 cm/sec TR max P.9 mmHg ECHO/Echo Limited w/Contrast Interpretation Summary The estimated ejection fraction is 55 %. Mild anteroseptal hypokinesis Unable to assess diastolic dysfunction. The left atrium is mildly enlarged. Mild (1+) mitral valve insufficiency. Mild-Moderate (1-2+) aortic valve insufficiency. Ordering Physician: Vladimir Bolaños Referring Physician: [facility] Performed By: Katalina York, DIANA, RVT
[2023-09-16 06:35] LABS: Hematocrit 36.3 % (40-54); Hemoglobin 11.5 g/dL (13.0-16.5); Mean Corp Hgb Conc 31.7 g/dL (32-36); Mean Corpuscular Volume 91.7 fL (80-94); Mean Platelet Vol. 10.4 fl (6.2-12.0); Platelet Count 257 K/mm3 (150-450); RBC Distribution Width CV 13.7 % (11.6-14.6); RBC Distribution Width SD 46.1 fl (35.1-43.9); Red Blood Count 3.96 M/mm3 (4.6-6.2); White Blood Count 10.1 K/mm3 (4.4-11.0)
[2023-09-16 07:09] LABS: Anion Gap 7 (5-15); BUN 24 mg/dL (7-18); BUN/Creat Ratio 21.4 RATIO (10-20); Chloride 103 mmol/L (98-107); Creatinine, Serum 1.12 mg/dL (0.70-1.30); EST Glomerular Filtration Rate 68 mL/min (>60); Est Glom Filt Rate - Afr Amer 83 mL/min (>60); Estimated Creatinine Clearance 76.64 ml/min; Glucose 126 mg/dL (74-106); Sodium Level 141 mmol/L (136-145)
[2023-09-16] MEDS: Budesonide Respules 0.5 MG/2 ML AMPUL.NEB. 2 MG INHALATION ×2 (07:09→19:16)
[2023-09-16] MEDS: Ipratropium/Albuterol Sulfate 3 ML AMPUL.NEB INHALATION ×3 (07:10→19:16)
[2023-09-16 08:07] LABS: Bedside Glucose 115 mg/dL (74-106)
[2023-09-16] MEDS: 0.9% Saline Lock 10 ML Syringe IV ×2 (09:07→17:40)
[2023-09-16] MEDS: Furosemide 40 MG/4 ML Vial IV ×2 (09:07→17:39)
[2023-09-16] MEDS: Insulin Glargine-YFGN 100 UNIT/ML Pen 20 UNIT SC ×2 (09:08→21:31)
[2023-09-16] MEDS: Fluticasone 0.05% 1 SPRAY NASAL.SRY NASAL ×2 (09:08→21:30)
[2023-09-16] MEDS: guaiFENesin 1,200 MG Tablet 1200 MG PO ×2 (09:09→21:30)
[2023-09-16] MEDS: Loratadine 10 MG Tablet PO (09:09)
[2023-09-16] MEDS: Enoxaparin 40 MG/0.4 ML Syringe SC (09:09)
[2023-09-16] MEDS: Cholecalciferol (VIT D3) 25 MCG TABLET (1,000 UNITS) PO (09:10)
[2023-09-16] MEDS: Vitamin B Comp W-C Capsule 1 CAP PO (09:10)
[2023-09-16] MEDS: Aspirin E.C. 81 MG Tablet PO (09:10)
[2023-09-16] MEDS: dilTIAZem CD 180 MG Capsule PO (09:10)
[2023-09-16] MEDS: Insulin Lispro 100 UNIT/ML INSULN.PEN 7 UNIT SC ×3 (09:17→17:40)
--- NOTE | 2023-09-16 11:06 | PN_ITS ---
Subjective Subjective Patient seen and examined. He denied any complaints. His breathing has improved. He denies any cough, chest pain, palpitations, dizziness, nausea, vomiting or any other symptoms. Review of systems is otherwise negative. Objective Data Objective Data Vital Signs: Vital Signs Temp Pulse Resp BP Pulse Ox O2 Del Method O2 Flow Rate 98.0 F 99 18 111/66 95 Nasal Cannula 2 09/16/23 08:55 09/16/23 08:55 09/16/23 08:55 09/16/23 08:55 09/16/23 08:55 09/16/23 08:55 09/16/23 08:55 Oxygen Flow Rate (L/min) 2 Oxygen Delivery Method Nasal Cannula Weight: 266 lb 15.677 oz Body Mass Index (BMI) 38.2 Intake & Output: Intake and Output for Last 24 Hours 09/14/23 09/15/23 09/16/23 23:59 23:59 23:59 Intake Total 240 / 240 Output Total 550 / 550 Balance -310 / -310 Lab / Micro Data 09/16/23 05:58 09/16/23 05:58 Labs: Laboratory Results - last 24 hr 09/15/23 16:25: WBC 10.7, RBC 3.87 L, Hgb 11.0 L, Hct 34.7 L, MCV 89.7, MCH 28.4, MCHC 31.7 L, RDW Std Deviation 45.0 H, RDW Coeff of [place]ad 13.8, Plt Count 261, MPV 10.4, Immature Gran % (Auto) 0.600, Neut % (Auto) 78.7 H, Lymph % (Auto) 9.4 L, [place] % (Auto) 9.9, Eos % (Auto) 0.9, Baso % (Auto) 0.5, Absolute Neuts (auto) 8.4 H, Absolute Lymphs (auto) 1.00, Nucleated RBC % 0, PT 16.6 H, INR 1.3, Sodium 141, Potassium 4.6, Chloride 106, Carbon Dioxide 27.0, Anion Gap 8, BUN 29 H, Creatinine 1.20, Estim Creat Clear Calc 72.12, Est GFR (MDRD) Af Amer 76, Est GFR (MDRD) Non-Af 63, BUN/Creatinine Ratio 24.2 H, Glucose 242 H, Lactic Acid 1.4, Calcium 9.1, Troponin I High Sens 39, B-Natriuretic Peptide 182.2 H 09/15/23 23:14: POC Glucose 110 H 09/16/23 05:58: WBC 10.1, RBC 3.96 L, Hgb 11.5 L, Hct 36.3 L, MCV 91.7, MCH 29.0, MCHC 31.7 L, RDW Std Deviation 46.1 H, RDW Coeff of Asad 13.7, Plt Count 257, MPV 10.4, Sodium 141, Potassium 4.0, Chloride 103, Carbon Dioxide 31.0, Anion Gap 7, BUN 24 H, Creatinine 1.12, Estim Creat Clear Calc 76.64, Est GFR (MDRD) Af Amer 83, Est GFR (MDRD) Non-Af 68, BUN/Creatinine Ratio 21.4 H, G lucose 126 H, Calcium 9.0 09/16/23 07:45: POC Glucose 115 H Micro: Microbiology 09/15/23 16:25 Mucosa - Nose SARS-CoV-2, Influenza & RSV (PCR) - Final Radiography Diagnostic Testing: Radiology Impression Chest X-Ray 09/15/23 16:26 IMPRESSION: Findings consistent with congestive failure with atelectasis or infiltrate and pleural effusions in both lower lung brown. Findings are significantly worse than prior exam. Electronically Signed: Cecilio Morales MD at 16:39 EDT , Chest CTA 09/15/23 17:08 IMPRESSION: 1. Significant bilateral pleural effusions worse on the left and worse than prior exam. 2. Significant atelectasis of both lower lobes. Pneumonia cannot be excluded. 3. Possible mild diffuse pulmonary edema 4. Cardiomegaly. Electronically Signed: Cecilio Morales MD at 17:55 EDT , Physical Exam Const alert, oriented x3, no apparent distress and well nourished General Appearance: cooperative HEENT normocephalic, head/scalp atraumatic, moist oral mucous membranes and oropharynx normal Eyes PERRL and EOMs intact bilaterally Neck no lymphadenopathy and supple Lymph Lymphatic: no lymphadenopathy noted and no lymphedema noted Resp Resp Narrative: diminished breath sounds bibasally, no wheezes or crackles. On 2L of oxygen. Cardio regular rate, regular rhythm, S1 normal heart sound, S2 normal heart sound and no murmurs GI normal to inspection, nondistended, normoactive bowel sounds, soft to palpation, non-tender and non-distended Extremity normal capillary refill, no clubbing, cyanosis or edema and no calf tenderness General Extremity: no tenderness to palpation of joints or extremities Skin General Skin Exam: no breakdown Neuro CN's II-XII intact bilaterally, no focal motor deficits, no sensory deficits noted and deep tendon reflexes 2+ bilaterally Motor Exam: strength 5/5 throughout Psych thought process normal and cooperative Appearance: appropriate Assessment & Plan Assessment/Plan (1) CHF (congestive heart failure): (2) Pleural effusion, bilateral: (3) Hypoxia: PLAN: Plan #Hypoxia due to acute exacerbation of heart failure with preserved EF.. * feels much better today. He feels his shortness of breath has improved markedly. * on 2L of oxygen. * being diuresed with IV lasix 40mg bid. * BNP is 182.2 * CTA chest showed bilateral effusion, worse on the left and worse since previous exam * breathing treatment with bronchodilators. Titrate oxygen to maintain sats>90% * 2D echo from 08/07/2023 showed EF of 53% with moderate concentric LV hypertrophy, borderline LV global hypokinesis and bioprosthetic aortic valve with peak aortic gradient of 44mmhg. * repeat 2D echo pending. * #Atrial fibrillation: on cardizem. Not on anticoagulation, unclear why. #TYpe 2 diabetes mellitus * A1C is 6.5. Has continuous glucose monitoring and says it is [facility] and his insulin adjusted accordingly * on lantus 20 untis bid. ISS. Accuchecks ACHS. * #VICKI: on CPAP qhs #Osteoarthritis: s/p left total knee arthroplasty. stable #Hypertension: on lisiopnril. IV hydralazine prn. DVT prophylaxis: lovenox Charges/Coding Visit Charges Inpatient E&M: 83549 Subs Hosp L2
[2023-09-16 13:06] LABS: Bedside Glucose 121 mg/dL (74-106)
--- NOTE | 2023-09-16 15:00 | CASEMGMT ---
RN?CM?SOFTWARE DEVELOPMENT PROJECT MANAGER?CM?to room to meet with patient for initial transition planning/care coordination?assessment.?RN?CM?introduced self and role at [facility].? Pt voices understanding and consents to?assessment?at this time.? Pt sitting up in chair in room in no distress at this time.? Pt is A/O at this time and answers all questions appropriately.?? Care providers, pharmacy, and demographics verified/updated at this time. PCP: Monica Stephens Specialists: System Manager and drywall finishing foreman @ [place] Preferred [facility]acy: [facility] for [facility]-term fill. Otherwise, [facility] Insurance: [place], [facility] A Prescription Benefit:?[facility] only. LNOK: daughterMegan Living Arrangements: Pt's 12-yr-old great-granddaughter lives w/pt in one-story home w/basement w/2 steps to enter. Pt states he is independent w/ADL's and IADL's Transportation:?Pt states drives self and states no transportation concerns at this time.? DME: ?States has the following DME:?walk-in shower w/built-in seat, cane, grab bars, walker, W/C, scooter, CGM w/sufficient supplies, back-up glucometer w/supplies, Home O2 thru [facility] from [facility] @ 2l/m @ HS only, bleed-in via PAP. Pt states he has a concentrator and 2 portable tanks that his son-in-law can bring in for him to go home on tomorrow, if he qualifies for any O2 @ rest or w/exertion. He states once he gets him, he can use his concentrator until [facility] can deliver more portable tanks to his home. He bought a pulse ox, but states it was not working properly. [facility] is [facility] a new one. He also states he could afford to purchase another one, if needed. Pt states no need for further DME at this time.? HHC/SNF: No hx of SNF. States had HHC a long time ago. Pt declines needs. Pt wishes to return home and states has no concerns with going home at time of discharge.? Follow for any increase in home oxygen needs and any further discharge planning/needs.? Pt voices no further concerns/needs at this time.? PLAN:??Home. Home O2 testing to be completed prior to discharge on RA @ rest and on RA w/exertion. It pt qualifies for any O2 @ rest or w/exertion, [facility] Home O2 form to be filled out w/home O2 testing results and MD to sign. Form to be faxed to the [facility]. Green sheet placed on chart w/detailed instructions. If pt does qualify for increase in current home O2 HS orders, CM to f/u with [facility] on Monday. Susannah BSN?RN?CM
--- NOTE | 2023-09-16 16:20 | CON.PCM.CA_ITS ---
Assessment & Plan Assessment/Plan (1) CHF (congestive heart failure): QUALIFIERS: Heart failure type: unspecified Heart failure chronicity: unspecified Qualified Code(s): I50.9 - Heart failure, unspecified PLAN: Appears compensated at this time. Reasonable to switch him from IV Lasix to 40 mg p.o. daily. (2) Atrial fibrillation: QUALIFIERS: Atrial fibrillation type: unspecified Qualified Code(s): I48.91 - Unspecified atrial fibrillation PLAN: Continue present management. He could be switched from aspirin to Eliquis (3) H/O aortic valve replacement: PLAN: Plan If patient continues to do well he could be discharged home tomorrow morning and he can follow-up with his primary copy messenger. HPI Consult Data Date of Consult: 09/16/23 HPI Narrative Reason for Consultation: Shortness of breath HPI Narrative: MANJU SANCHEZ, is a 73 M who presents with shortness of breath. He was felt to be volume overloaded and was started on IV Lasix. His shortness of breath has improved considerably and he was inquiring about going home today. He denies any chest pain. He had aortic valve replacement about 6 years ago. He states he has had coronary angiography twice and they did not find any significant stenosis. He has history of atrial fibrillation as well. FOR[facility]LY [facility], [facility] Medical History (Updated 09/16/23 @ 16:[address] Domenica Shah MD) Atrial fibrillation COPD exacerbation History of aortic valve stenosis Atherosclerotic heart disease of [place] coronary artery without angina pectoris VICKI on CPAP Obesity (BMI 35.0-39.9 without comorbidity) Aortic valve stenosis Hyperlipidemia, unspecified Type 2 diabetes mellitus without complications Home Medications ?Medication ?Instructions ?Recorded ?Last Taken ?Type albuterol sulfate 90 mcg/actuation 2 puff inhalation Q6H PRN Dyspnea 12/01/21 Unknown History aerosol inhaler budesonide 160 mcg-glycopyr 9 2 inh inhalation BID shortness of 12/01/21 09/15/23 06:13 History mcg-formot 4.8 mcg/actuation HFA breath inhaler (Breztri Aerosphere) fluticasone propionate 50 1 spray intranasal Q12H congestion 12/01/21 09/15/23 06:12 History mcg/actuation nasal spray,suspension loratadine 10 mg tablet 10 mg PO DAILY allergies 12/01/21 09/15/23 06:14 History acetaminophen 325 mg tablet 325 mg PO Q8H PRN left shoulder 10/15/22 08/07/23 History (Tylenol) pain diltiazem HCl 180 mg 180 mg PO DAILY [facility] 10/15/22 09/15/23 06:13 History capsule,extended release 24 hr (Cardizem CD) insulin glargine 100 unit/mL 30 unit subcut BID DM II 10/15/22 09/15/23 06:12 History subcutaneous solution (Lantus U-100 Insulin) lisinopril 10 mg tablet (Zestril) 10 mg PO DAILY blood pressure 10/15/22 09/15/23 06:14 History melatonin 10 mg capsule 10 mg PO QHS sleep 10/15/22 09/14/23 18:00 History metformin 1,000 mg tablet 1,000 mg PO BID DM II 10/15/22 09/15/23 06:00 History vitamin B complex (B 1 tab PO DAILY supplement 10/15/22 09/15/23 06:00 History Complex-Vitamin B12 tablet) aspirin 81 mg tablet,delayed 81 mg PO DAILY [facility] 08/07/23 09/15/23 06:13 History release cholecalciferol (vitamin D3) 25 25 mcg PO DAILY SUPPLEMENT 08/07/23 09/15/23 06:13 History mcg (1,000 unit) tablet guaifenesin 1,200 mg tablet, 1,200 mg PO BID #0 tabs 08/09/23 09/15/23 06:12 Rx extended release 12 hr (Mucus Relief ER) levofloxacin 750 mg tablet 750 mg PO Q24H #6 tabs 08/09/23 09/15/23 06:00 Rx Allergy/AdvReac Type Severity Reaction Status Date / Time No Known Allergies Allergy Verified 09/15/23 15:30 Surgical History (Updated 09/16/23 @ 16:[address] Domenica Shah MD) H/O mechanical aortic valve replacement History of prosthetic aortic valve Mechanical heart valve present History of arthroplasty of right knee Social History Smoking Status: Former smoker Physical Exam Const alert and oriented x3 HEENT normocephalic Eyes no scleral icterus Resp normal respiratory effort and clear to auscultation bilaterally Cardio Cardio Narrative: Irregular rhythm Extremity no pedal edema Skin no rashes or lesions noted Risk Stratification Risk Stratification Applicable: No Charges/Coding Visit Charges Inpatient E&M: 59221 Init Hosp L2 Objective Data Vital Signs: Vital Signs Temp Pulse Resp BP Pulse Ox O2 Del Method O2 Flow Rate 97.8 F 89 18 91/60 96 Nasal Cannula 2 09/16/23 14:55 09/16/23 14:55 09/16/23 14:55 09/16/23 14:55 09/16/23 14:55 09/16/23 14:55 09/16/23 14:55 Oxygen Flow Rate (L/min) 2 Oxygen Delivery Method Nasal Cannula Weight: 266 lb 15.677 oz Body Mass Index (BMI) 38.2 Intake & Output: Intake and Output for Last 24 Hours 09/14/23 09/15/23 09/16/23 23:59 23:59 23:59 Intake Total 720 / 720 Output Total 550 / 550 Balance 170 / 170 Lab / Micro Data 09/16/23 05:58 09/16/23 05:58 Labs: Laboratory Results - last 24 hr 09/15/23 16:25: WBC 10.7, RBC 3.87 L, Hgb 11.0 L, Hct 34.7 L, MCV 89.7, MCH 28.4, MCHC 31.7 L, RDW Std Deviation 45.0 H, RDW Coeff of Asad 13.8, Plt Count 261, MPV 10.4, Immature Gran % (Auto) 0.600, Neut % (Auto) 78.7 H, Lymph % (Auto) 9.4 L, [place] % (Auto) 9.9, Eos % (Auto) 0.9, Baso % (Auto) 0.5, Absolute Neuts (auto) 8.4 H, Absolute Lymphs (auto) 1.00, Nucleated RBC % 0, PT 16.6 H, INR 1.3, Sodium 141, Potassium 4.6, Chloride 106, Carbon Dioxide 27.0, Anion Gap 8, BUN 29 H, Creatinine 1.20, Estim Creat Clear Calc 72.12, Est GFR (MDRD) Af Amer 76, Est GFR (MDRD) Non-Af 63, BUN/Creatinine Ratio 24.2 H, Glucose 242 H, Lactic Acid 1.4, Calcium 9.1, Troponin I High Sens 39, B-Natriuretic Peptide 182.2 H 09/15/23 23:14: POC Glucose 110 H 09/16/23 05:58: WBC 10.1, RBC 3.96 L, Hgb 11.5 L, Hct 36.3 L, MCV 91.7, MCH 29.0, MCHC 31.7 L, RDW Std Deviation 46.1 H, RDW Coeff of Asad 13.7, Plt Count 257, MPV 10.4, Sodium 141, Potassium 4.0, Chloride 103, Carbon Dioxide 31.0, Anion Gap 7, BUN 24 H, Creatinine 1.12, Estim Creat Clear Calc 76.64, Est GFR (MDRD) Af Amer 83, Est GFR (MDRD) Non-Af 68, BUN/Creatinine Ratio 21.4 H, G lucose 126 H, Calcium 9.0 09/16/23 07:45: POC Glucose 115 H 09/16/23 12:46: POC Glucose 121 H Micro: Microbiology 09/15/23 16:25 Mucosa - Nose SARS-CoV-2, Influenza & RSV (PCR) - Final Cardiology Labs/Tests 09/15/23 16:25: WBC 10.7, RBC 3.87 L, Hgb 11.0 L, Hct 34.7 L, MCV 89.7, MCH 28.4, MCHC 31.7 L, Plt Count 261, MPV 10.4, Immature Gran % (Auto) 0.600, Neut % (Auto) 78.7 H, Lymph % (Auto) 9.4 L, [place] % (Auto) 9.9, Eos % (Auto) 0.9, Baso % (Auto) 0.5, Absolute Neuts (auto) 8.4 H, Nucleated RBC % 0, PT 16.6 H, INR 1.3, Sodium 141, Potassium 4.6, Chloride 106, Carbon Dioxide 27.0, Anion Gap 8, BUN 29 H, Creatinine 1.20, Est GFR (MDRD) Af Amer 76, Est GFR (MDRD) Non-Af 63, B UN/Creatinine Ratio 24.2 H, Glucose 242 H, Lactic Acid 1.4, Calcium 9.1, B- Natriuretic Peptide 182.2 H 09/16/23 05:58: WBC 10.1, RBC 3.96 L, Hgb 11.5 L, Hct 36.3 L, MCV 91.7, MCH 29.0, MCHC 31.7 L, Plt Count 257, MPV 10.4, Sodium 141, Potassium 4.0, Chloride 103, Carbon Dioxide 31.0, Anion Gap 7, BUN 24 H, Creatinine 1.12, Est GFR (MDRD) Af Amer 83, Est GFR (MDRD) Non-Af 68, BUN/Creatinine Ratio 21.4 H, Glucose 126 H , Calcium 9.0 Rhythm: EKG: ECHO: Stress Test: Cardiac Cath: PCI: CT Surgery: Holter monitor: EPS: PPM: CXR: Chest CT Scan: Radiography Diagnostic Testing: Radiology Impression Chest X-Ray 09/15/23 16:26 IMPRESSION: Findings consistent with congestive failure with atelectasis or infiltrate and pleural effusions in both lower lung brown. Findings are significantly worse than prior exam. Electronically Signed: Cecilio Morales MD at 16:39 EDT , Chest CTA 09/15/23 17:08 IMPRESSION: 1. Significant bilateral pleural effusions worse on the left and worse than prior exam. 2. Significant atelectasis of both lower lobes. Pneumonia cannot be excluded. 3. Possible mild diffuse pulmonary edema 4. Cardiomegaly. Electronically Signed: Cecilio Morales MD at 17:55 EDT , Echocardiogram 09/16/23 01:24 Interpretation Summary The estimated ejection fraction is 55 %. Mild anteroseptal hypokinesis Unable to assess diastolic dysfunction. The left atrium is mildly enlarged. Mild (1+) mitral valve insufficiency. Mild-Moderate (1-2+) aortic valve insufficiency. Ordering Physician: Vladimir Bolaños Referring Physician: [facility] Performed By: Katalina York, DIANA, RVT
[2023-09-16 16:58] LABS: Bedside Glucose 144 mg/dL (74-106)
[2023-09-16] MEDS: MELATONIN 10 MG TABLET PO (21:30)
[2023-09-16] MEDS: APIXABAN 5 MG TABLET PO (21:30)
[2023-09-16 22:01] LABS: Bedside Glucose 200 mg/dL (74-106)
[2023-09-17 03:40] VITALS: BP 110/70; PULSE 92; RESP 18; TEMP 36.1; O2SAT 96
[2023-09-17 06:00] VITALS: BMI 37.0
[2023-09-17 06:43] VITALS: PULSE 89; RESP 20; O2SAT 95
[2023-09-17] MEDS: Budesonide Respules 0.5 MG/2 ML AMPUL.NEB. 2 MG INHALATION (06:43)
[2023-09-17] MEDS: Ipratropium/Albuterol Sulfate 3 ML AMPUL.NEB INHALATION (06:43)
[2023-09-17] MEDS: Insulin Glargine-YFGN 100 UNIT/ML Pen 20 UNIT SC (07:53)
[2023-09-17] MEDS: Insulin Lispro 100 UNIT/ML INSULN.PEN SC ×2 (07:53→12:47)
[2023-09-17 07:54] LABS: Absolute Lymphocyte Count 0.92 X10^3/uL (0.83-4.51); Absolute Neutrophil Count 7.1 X10^3/uL (2.0-7.7); Basophil# 0.04 X10^3/uL; Basophil% 0.4 % (0-1); Eosinophil# 0.12 X10^3/uL; Eosinophils% 1.3 % (0-5); Hematocrit 36.5 % (40-54); Hemoglobin 11.7 g/dL (13.0-16.5); Lymphocyte # 0.92 X10^3/ul (0.83-4.51); Lymphocyte % 9.9 % (19-41); Mean Corp Hgb Conc 32.1 g/dL (32-36); Mean Corpuscular Volume 90.3 fL (80-94); Mean Platelet Vol. 9.7 fl (6.2-12.0); Monocyte# 1.04 X10^3/uL; Monocyte% 11.2 % (0-10); NRBC Flagged by Analyzer 0 % (0-5); Neutrophil % 76.8 % (47-70); Platelet Count 241 K/mm3 (150-450); RBC Distribution Width CV 13.5 % (11.6-14.6); RBC Distribution Width SD 44.1 fl (35.1-43.9); Red Blood Count 4.04 M/mm3 (4.6-6.2); White Blood Count 9.3 K/mm3 (4.4-11.0)
[2023-09-17] MEDS: Insulin Lispro 100 UNIT/ML INSULN.PEN 7 UNIT SC ×2 (07:54→12:46)
[2023-09-17 08:16] LABS: Bedside Glucose 158 mg/dL (74-106)
[2023-09-17 08:36] LABS: Anion Gap 6 (5-15); BUN 22 mg/dL (7-18); BUN/Creat Ratio 25.3 RATIO (10-20); Calcium,Total 8.9 mg/dL (8.5-10.1); Chloride 102 mmol/L (98-107); Creatinine, Serum 0.87 mg/dL (0.70-1.30); EST Glomerular Filtration Rate 91 mL/min (>60); Est Glom Filt Rate - Afr Amer 110 mL/min (>60); Estimated Creatinine Clearance 96.95 ml/min; Glucose 172 mg/dL (74-106); Potassium 4.2 mmol/L (3.5-5.1); Sodium Level 139 mmol/L (136-145)
[2023-09-17 09:10] VITALS: BP 106/59; PULSE 89; RESP 18; TEMP 36.8; O2SAT 93
[2023-09-17] MEDS: Fluticasone 0.05% 1 SPRAY NASAL.SRY NASAL (09:11)
[2023-09-17] MEDS: dilTIAZem CD 180 MG Capsule PO (09:12)
[2023-09-17] MEDS: Vitamin B Comp W-C Capsule 1 CAP PO (09:12)
[2023-09-17] MEDS: APIXABAN 5 MG TABLET PO (09:12)
[2023-09-17] MEDS: Loratadine 10 MG Tablet PO (09:12)
[2023-09-17] MEDS: Cholecalciferol (VIT D3) 25 MCG TABLET (1,000 UNITS) PO (09:12)
[2023-09-17] MEDS: Furosemide 40 MG/4 ML Vial IV (09:12)
[2023-09-17] MEDS: Aspirin E.C. 81 MG Tablet PO (09:12)
[2023-09-17] MEDS: guaiFENesin 1,200 MG Tablet 1200 MG PO (09:13)
[2023-09-17] MEDS: 0.9% Saline Lock 10 ML Syringe IV (09:13)
--- NOTE | 2023-09-17 11:18 | PCM.DC.SUM ---
Providers Date of Admission: 09/15/23 Date of Discharge: 09/17/23 Primary Care Physician: [place] [facility] Consultations 09/16/23 01:55 Consult: Cardiology Routine Consulting Provider: Kurt Ravi Reason for Consult: CHF exacerbation, h/o AVR, concern for failing AV EMERGENT Consult: No MD Notified: Yes Date Notified: 09/16/23 Time Notified: 06:46 Method of Notification: Text Reason For Visit: CHF EXACERBATION Diagnosis Discharge Diagnosis (1) CHF (congestive heart failure): Status: Acute Code(s): I50.9 - Heart failure, unspecified Qualifiers: Heart failure chronicity: unspecified Heart failure type: unspecified Qualified Code(s): I50.9 - Heart failure, unspecified (2) Atrial fibrillation: Status: Acute Code(s): I48.91 - Unspecified atrial fibrillation Qualifiers: Atrial fibrillation type: unspecified Qualified Code(s): I48.91 - Unspecified atrial fibrillation (3) H/O aortic valve replacement: Status: Acute Code(s): Z95.2 - Presence of prosthetic heart valve Plan #Hypoxia due to acute exacerbation of heart failure with preserved EF.. feels much better today. He feels his shortness of breath has improved markedly. on 2L of oxygen. being diuresed with IV lasix 40mg bid. BNP is 182.2 CTA chest showed bilateral effusion, worse on the left and worse since previous exam breathing treatment with bronchodilators. Titrate oxygen to maintain sats>90% 2D echo from 08/07/2023 showed EF of 53% with moderate concentric LV hypertrophy, borderline LV global hypokinesis and bioprosthetic aortic valve with peak aortic gradient of 44mmhg. repeat 2D echo pending. #Atrial fibrillation: on cardizem. Not on anticoagulation, unclear why. #TYpe 2 diabetes mellitus A1C is 6.5. Has continuous glucose monitoring and says it is monitored by his doctors at the [place] and his insulin adjusted accordingly on lantus 20 untis bid. ISS. Accuchecks ACHS. #VICKI: on CPAP qhs #Osteoarthritis: s/p left total knee arthroplasty. stable #Hypertension: on lisiopnril. IV hydralazine prn. DVT prophylaxis: lovenox Medications at Discharge Home Medications albuterol sulfate 90 mcg/actuation aerosol inhaler 2 puff inhalation Q6H PRN Dyspnea 12/01/21 budesonide 160 mcg-glycopyr 9 mcg-formot 4.8 mcg/actuation HFA inhaler (Breztri Aerosphere) 2 inh inhalation BID shortness of breath 12/01/21 fluticasone propionate 50 mcg/actuation nasal spray,suspension 1 spray intranasal Q12H congestion 12/01/21 loratadine 10 mg tablet 10 mg PO DAILY allergies 12/01/21 acetaminophen 325 mg tablet (Tylenol) 325 mg PO Q8H PRN left shoulder pain 10/15/22 diltiazem HCl 180 mg capsule,extended release 24 hr (Cardizem CD) 180 mg PO DAILY [facility] 10/15/22 insulin glargine 100 unit/mL subcutaneous solution (Lantus U-100 Insulin) 30 unit subcut BID DM II 10/15/22 lisinopril 10 mg tablet (Zestril) 10 mg PO DAILY blood pressure 10/15/22 melatonin 10 mg capsule 10 mg PO QHS sleep 10/15/22 metformin 1,000 mg tablet 1,000 mg PO BID DM II 10/15/22 vitamin B complex (B Complex-Vitamin B12 tablet) 1 tab PO DAILY supplement 10/15/22 aspirin 81 mg tablet,delayed release 81 mg PO DAILY [facility] 08/07/23 cholecalciferol (vitamin D3) 25 mcg (1,000 unit) tablet 25 mcg PO DAILY SUPPLEMENT 08/07/23 guaifenesin 1,200 mg tablet, extended release 12 hr (Mucus Relief ER) 1,200 mg PO BID #0 tabs 08/09/23 apixaban 5 mg tablet (Eliquis) 5 mg PO BID #60 tabs 09/17/23 furosemide 40 mg tablet 40 mg PO DAILY #30 tabs 09/17/23 potassium chloride 20 mEq tablet,extended release 20 meq PO DAILY #30 tabs 09/17/23 Hospital Course Operations None Procedures 2-D Echocardiogram Summary of Care Provided Minutes Spent on Discharge: 48 Hospital Course: Patient is a 73-year-old male with a past medical history as outlined was admitted through the ED on 09/15/2023 with a complaint of worsening shortness of breath with exertion. He had been admitted in early August 2023 for chest pain and shortness of breath and treated with pneumonia. he had 2D echo done then which showed EF of 53% with moderate concentric left ventricular hypertrophy and borderline global hypokinesis of the left ventricle. Stress test was ordered then but was subsequently canceled per cardiology recommendations and patient was discharged home. He said he had however been getting more short of breath and had worsened over the last 2 days prior to admission. He had gone to the [place] where he usually gets his care and had a chest x-ray done which showed evidence of fluid overload so he was told to come to the hospital for further evaluation. He did admit to occasional chest tightness but denied any chest pain and also admitted to a mild productive cough as well as lower extremity edema. In the ED he was found to be in A-fib though he was not in SVT send he was requiring 2 L of oxygen. Labs were similar to his baseline. Chest x-ray showed evidence of fluid overload with bilateral pleural effusions and pulmonary edema concerning for heart failure. CT of the chest showed no PE but showed significant bilateral pleural effusions worse on the left with significant atelectasis of both lower lobes and mild diffuse pulmonary edema as well as cardiomegaly. He was admitted and managed for acute exacerbation of heart failure preserved ejection fraction in the setting of hypoxia due to heart failure. He was diuresed with IV Lasix. Cardiology was consulted and he had repeat 2D echo which showed EF of 55% with mild anteroseptal hypokinesis and mild to moderate aortic valve insufficiency with pulmonary artery systolic pressure 45 mmHg. His shortness of breath did improve and he felt much better. Cardiology reviewed him and recommended that patient could be discharged home. He was switched to p.o. Lasix 40 mg daily and was given p.o. potassium chloride 20 mill equivalent daily as well. He was discharged home on 09/17/2023. He is to follow-up with his primary care doctor and with cardiology within 1 to 2 weeks. Of note, there were no contraindications to patient being on anticoagulant in light of A-fib so he was placed on Eliquis 5 mg twice daily and discharged with a prescription for p.o. Eliquis 5 mg twice daily. Patient seen and examined prior to discharge. He felt well and had no complaints. He had an uneventful night. Review of systems otherwise negative. Labs and vitals reviewed. Medication reviewed and reconciled. Physical Exam Const alert, oriented x3, no apparent distress and well nourished General Appearance: cooperative and comfortable HEENT normocephalic, head/scalp atraumatic, hearing grossly normal bilaterally, nasal mucous membranes and turbinates normal, moist oral mucous membranes and oropharynx normal Mouth: oral and palatal mucosa normal Eyes PERRL, EOMs intact bilaterally and conjunctivae normal Neck full ROM, no lymphadenopathy and supple Lymph Lymphatic: no lymphadenopathy noted and no lymphedema noted Chest inspection of chest normal Resp normal respiratory effort and no use of accessory muscles Resp Narrative: diminished breath sounds bibasally, no wheezes or crackles. On 2L of oxygen. Cardio regular rate, regular rhythm, S1 normal heart sound, S2 normal heart sound, no murmurs and peripheral pulses 2+ throughout Cardio Narrative: A-fib, rate controlled. GI normal to inspection, nondistended, normoactive bowel sounds, soft to palpation, non-tender and non-distended Back/Spine normal ROM Extremity normal to inspection, full ROM, normal capillary refill, no clubbing, cyanosis or edema and no calf tenderness Extremity Narrative: edema has resolved General Extremity: no tenderness to palpation of joints or extremities Skin no rashes or lesions noted General Skin Exam: no breakdown Neuro oriented x3, CN's II-XII intact bilaterally, moves all extremities, no focal motor deficits, no sensory deficits noted and deep tendon reflexes 2+ bilaterally Speech: speech normal Motor Exam: strength 5/5 throughout Psych mental status grossly normal, thought process normal and cooperative Appearance: appropriate Weight / BMI Weight Weight: 258 lb 2.581 oz Body Mass Index (BMI) 37.0 ABG / Lab / Microbiology Data 09/17/23 07:48 09/17/23 07:48 Laboratory: Laboratory Results - last 24 hr 09/16/23 12:46: POC Glucose 121 H 09/16/23 16:39: POC Glucose 144 H 09/16/23 21:21: POC Glucose 200 H 09/17/23 07:48: WBC 9.3, RBC 4.04 L, Hgb 11.7 L, Hct 36.5 L, MCV 90.3, MCH 29.0, MCHC 32.1, RDW Std Deviation 44.1 H, RDW Coeff of Asad 13.5, Plt Count 241, MPV 9.7, Immature Gran % (Auto) 0.400, Neut % (Auto) 76.8 H, Lymph % (Auto) 9.9 L, [place] % (Auto) 11.2 H, Eos % (Auto) 1.3, Baso % (Auto) 0.4, Absolute Neuts (auto) 7.1, Absolute Lymphs (auto) 0.92, Nucleated RBC % 0, Sodium 139, Potassium 4.2, Chloride 102, Carbon Dioxide 31.0, Anion Gap 6, BUN 22 H, Creatinine 0.87, Estim Creat Clear Calc 96.95, Est GFR (MDRD) Af Amer 110, Est GFR (MDRD) Non-Af 91, BUN/Creatinine Ratio 25.3 H, Glucose 172 H, Calcium 8.9 09/17/23 07:52: POC Glucose 158 H Microbiology: Microbiology 09/15/23 16:25 Mucosa - Nose SARS-CoV-2, Influenza & RSV (PCR) - Final Radiography Diagnostic Testing: Radiology Impression Echocardiogram 09/16/23 01:24 Interpretation Summary The estimated ejection fraction is 55 %. Mild anteroseptal hypokinesis Unable to assess diastolic dysfunction. The left atrium is mildly enlarged. Mild (1+) mitral valve insufficiency. Mild-Moderate (1-2+) aortic valve insufficiency. Ordering Physician: lVadimir Bolaños Referring Physician: [facility] Performed By: Katalina York, DIANA, RVT D/C Instructions Discharge Diet: Low fat / Low cholesterol Discharge Activity: Return to Normal Activity Weight Bearing Status: Weight bearing as tolerated Call your doctor if you observe: Fever of 101 or Higher, Shortness of breath, Dizziness and Chest pain Meaningful Use Info Meaningful Use Meaningful Use Diagnoses (Choose all that apply): CHF CHF MANOLO/ARB ordered at discharge?: Yes Documented LVEF (%): 55 Ischemic Stroke Statin Dosing Therapy Reference: STATIN DOSE THERAPY REFERENCE: * Patients > 75 years receive moderate or high dose statin therapy. * Patients 75 years or YOUNGER should receive HIGH intensity statin dose unless contraindicated. You will be required to document reason for non-treatment if statin daily dose does not meet guidelines. HIGH DOSE STATIN THERAPY DAILY Atorvastatin > than or = to 40 mg Rosuvastatin > than or = to 20 mg Amlodipine + Atorvastatin > than or = to 2.5/40 mg Ezetimibe + Simvastatin 10/80 mg Simvastatin 80mg Discharge Plan Admission Admit Date/Time: 09/15/23 20:10 Primary Reason for Your Visit: acute heart failure Attending Provider: Nenita Canchola Primary Care Provider: [facility] Consulting Providers: Kurt Ravi; Vladimir Bolaños Instructions Patient Instructions: Coping with Heart Failure Discharge Orders/Prescriptions Prescriptions: New Eliquis 5 mg Tablet 5 mg PO BID Qty: 60 2RF furosemide 40 mg tablet 40 mg PO DAILY Qty: 30 2RF potassium chloride 20 mEq tablet extended release 20 meq PO DAILY Qty: 30 2RF Continued albuterol sulfate 90 mcg/actuation Hfa Aerosol Inhaler 2 puff INHALATION Q6H PRN (Reason: Dyspnea) fluticasone propionate 50 mcg/actuation [place],Suspension 1 spray INTRANASAL Q12H Rx Instructions: administer into each nostril loratadine 10 mg Tablet 10 mg PO DAILY Breztri Aerosphere 160-9-4.8 mcg/actuation Hfa Aerosol Inhaler 2 inh INHALATION BID acetaminophen [Tylenol] 325 mg tablet 325 mg PO Q8H PRN (Reason: left shoulder pain) diltiazem HCl [Cardizem CD] 180 mg capsule,extended release 24hr 180 mg PO DAILY lisinopril [Zestril] 10 mg tablet 10 mg PO DAILY melatonin 10 mg capsule 10 mg PO QHS vitamin B complex [B Complex-Vitamin B12] Tablet 1 tab PO DAILY metformin 1,000 mg tablet 1,000 mg PO BID insulin glargine [Lantus U-100 Insulin] 100 unit/mL solution 30 unit subcut BID cholecalciferol (vitamin D3) 25 mcg (1,000 unit) tablet 25 mcg PO DAILY aspirin 81 mg tablet,delayed release (DR/EC) 81 mg PO DAILY guaifenesin [Mucus Relief ER] 1,200 mg Tablet Extended Release 12hr 1,200 mg PO BID Qty: 0 0RF Rx Instructions: Take for 5 days Discontinued levofloxacin 750 mg tablet 750 mg PO Q24H Qty: 6 0RF Referrals / Follow Up: Kurt Ravi MD [Med Staff - Active Staff] - Within 2 Weeks [facility] [Primary Care Provider] - Within 1 Week Disposition Disposition (needs filled in before D/C Order can be placed): Home, Self Care Charges/Coding Visit Charges Inpatient E&M: 72261 Disch Hosp >30min
[2023-09-17 11:29] VITALS: O2SAT 91; O2SAT 94
[2023-09-17 12:02] LABS: Bedside Glucose 218 mg/dL (74-106)
--- NOTE | 2023-09-17 12:47 | CASEMGMT ---
THEODORE BLAND NOTE: Call received from JEREMY StevensU charge nurse, re: Eliquis that has been e-scribed to [facility] pharmacy. Per THEODORE BLAND discussion w/pt yesterday, he does not have Rx benefits except [facility] the [facility]. THEODORE BLAND placed call to [facility] pharmacy and spoke w/Ananya. Eliquis 30-day trial offer info provided. Per Ananya, pt has already used this offer and is not able to use it again. Ananya states w/use of Good [employer] card, cost of 30-day supply is $624. Cost of a 10-day supply (20 tabs) would be $212. Call placed to patient. Pt states he has used Eliquis in the past and does not have any tablets of it remaining @ home. He was made aware he has used the 30-day trial offer card in the past and unable to use it again. He was informed of [id number] cost for both 30-day and 10-day supply, as stated above. Pt states he will pay for the 10-day supply of Eliquis of $212. He states the 10 day supply will be enough to get him by until he can get an appt @ the [place] to get further Rx from them. THEODORE BLAND [facility] to [facility] and for him to let them know of need of more Eliquis before he runs out of it. He voices understanding. Call placed back to [facility] pharmacy. They were made aware to fill a 10-day supply of Eliquis, as pt states he will pay for it. Pt's RN, Cherelle, aware of above. Susannah ROSS RN, CM
[2023-09-17 13:02] VITALS: BP 92/62; PULSE 87; RESP 18; TEMP 36.4; O2SAT 94
== END 2023-09-17 13:11 | disposition home or self-care (01) | DRG 291 ==
LOC: ED 20:15 → PCU 20:24
PROVIDERS: Admitting Provider Hospitalist; Emergency Provider Emergency Medicine; Visit Provider Student in an Organized Health Care Education/Training Program
DX: I11.0 Hypertensive heart disease with heart failure (principal); I50.31 Acute diastolic (congestive) heart failure; J90 Pleural effusion, not elsewhere classified; J44.1 Chronic obstructive pulmonary disease with (acute) exacerbation; E11.65 Type 2 diabetes mellitus with hyperglycemia; D64.9 Anemia, unspecified; E66.9 Obesity, unspecified; Z95.2 Presence of prosthetic heart valve; I48.0 Paroxysmal atrial fibrillation; Z79.4 Long term (current) use of insulin; I25.10 Atherosclerotic heart disease of native coronary artery without angina pectoris; J30.2 Other seasonal allergic rhinitis; M19.90 Unspecified osteoarthritis, unspecified site; G47.33 Obstructive sleep apnea (adult) (pediatric); E78.5 Hyperlipidemia, unspecified; Z68.38 Body mass index [BMI] 38.0-38.9, adult; G47.00 Insomnia, unspecified; Z79.84 Long term (current) use of oral hypoglycemic drugs; R09.02 Hypoxemia; Z87.891 Personal history of nicotine dependence; Z79.82 Long term (current) use of aspirin; Z99.89 Dependence on other enabling machines and devices; Z79.899 Other long term (current) drug therapy; Z79.51 Long term (current) use of inhaled steroids; Z96.651 Presence of right artificial knee joint; R79.89 Other specified abnormal findings of blood chemistry
CPT/HCPCS: 36415; 71045; 71275; 80048; 82962; 83605; 83880; 84484; 85025; 85027; 85610; 87040; 87631; 93005; 93308; 94640; 94668; 99284; 99406; Q9957; Q9967; A4216; C8924; J1940